=== PATIENT | male | born 1940 | race Caucasian/White ===

== ENCOUNTER 2023-04-18 17:12 | Emergency (ER) | payer MEDICARE, OTHER, SELFPAY ==
[2023-04-18 17:14] VITALS: BMI 25.9
[2023-04-18] MEDS: LET TOPICAL ANESTHETIC GEL 3 ML TOPICAL (17:21)
[2023-04-18 17:22] VITALS: BP 148/71
[2023-04-18] MEDS: ADACEL 0.5 ML IM (17:34)
--- NOTE | 2023-04-18 17:56 | ED.GENMED ---
History of Present Illness
General
Chief Complaint: Fall
Source: patient and ambulance crew
Exam Limitations: none
Time Seen by Provider: 04/18/23 17:20
Nursing documentation reviewed up to this point in time: agreed with
Travel History
Have you had any contact with someone who has COVID-19?: No
Do you have any symptoms of coronavirus? Fever > 100 degrees, chills, cough, shortness of breath, sore throat, loss of taste or smell, muscle aches, or headache?: No
History of Present Illness
History of Present Illness:
82-year-old male with history as documented presents via EMS from home for evaluation after slip and fall with head trauma. Patient reports that they had just polished his floors and he was wearing his socks inside and slipped on the floor, fell
forward and hit his face on the ground. He was wearing his glasses and sustained a laceration to the bridge of his nose as well as underneath the left eye. He says he did not lose consciousness. He says he did not sustain any other injuries. He
was brought to the emergency room for assessment. He denies any headache. Denies any neck pain. Denies any chest or abdominal pain. He states he has chronic low back pain which is unchanged. Denies any pain in his extremities. No numbness or
weakness in his extremities. He is unsure of last tetanus. He does take Plavix.
Past History
Past History
ED Past Medical History: CAD, GERD, NIDDM and Other (Cellulitis)
ED Past Surgical History: Appendectomy and Cardiac
Social History
Tobacco: Non-smoker
Review of Systems
Review of Systems
All Other Systems: ROS reviewed and negative except as documented in HPI and ROS
Respiratory: Denies trouble breathing
Cardiac: Denies chest pain
ABD/GI: Denies abdominal pain, nausea or vomiting
: Denies flank pain
Musculoskeletal: Denies joint pain, neck pain or back pain
Skin: Reports other (Laceration)
Neurological: Denies dizzy, headache, weakness or numbness
Phy Exam
Physical Exam
Physical Exam:
General: Awake, alert, oriented x3 with a GCS of 15; no acute distress
Head: Normocephalic, patient has jagged laceration along the right bridge of the nose approximately 4 cm in length; he has an approximately 5 cm laceration over the left cheek/maxillary region
Eyes: Conjunctiva normal, EOMI, pupils equal round reactive to light bilaterally
Throat: Airway intact, handling secretions
Neck: Trachea midline, no tenderness of the cervical spine
Back: No tenderness in the thoracic or lumbar spine and no signs of trauma to the back or flank
Lungs: Clear to auscultation bilaterally, no wheezing, rales, rhonchi
Heart: Regular rate and rhythm, no murmurs, gallops, or rubs; no chest wall tenderness /rib tenderness
Abd: Soft, non distended, nontender
Neuro: Cranial nerves grossly intact, speech fluid, no gross motor or sensory deficits
Skin: Facial lacerations as above
Extremities: Atraumatic, warm well-perfused with equal pulses in all extremities; allows for full passive range of motion in upper and lower extremities without discomfort
Scores
Heart Failure Risk
Heart Failure Risk Score: Not Applicable
Heart Score for Chest Pain Patients
STEMI patient?: Not applicable
Withdrawal Assessment of Alcohol
Withdrawal Assessment Completed?: Not applicable
Course
Orders/Labs/Results
Orders:
Orders
04/18/23 17:17
Lidocaine/Epinephrine/Tetracai [Let Topical Anesthetic Gel] 3 ml .ROUTE .[facility]
04/18/23 17:20
CT Cervical Spine W/o Iv Contr Urgent
Comment:
Reason For Exam: fall with frontal headstrike
CT Head W/o Iv Contrast Urgent
Comment:
Reason For Exam: fall with left frontal trauma
Lidocaine/Epinephrine/Tetracai [Let Topical Anesthetic Gel] 3 ml TOPICAL NOW STA
Lidocaine/Epinephrine/Tetracai [Let Topical Anesthetic Gel] 3 ml TOPICAL NOW STA
Tetanus/Diphth/Acelpertussis [Adacel] 0.5 ml IM .ONCE ONE
Vital Signs
Initial and Last Documented VS:
Initial Vital Signs
Temp Pulse Resp BP Pulse Ox
36.4 C 72 16 148/71 97
04/18/23 17:22 04/18/23 17:22 04/18/23 17:22 04/18/23 17:22 04/18/23 17:22
Last Documented Vital Signs
Temp Pulse Resp BP Pulse Ox
36.4 C 78 18 128/57 96
04/18/23 17:22 04/18/23 19:24 04/18/23 19:24 04/18/23 18:00 04/18/23 19:24
Procedures
Laceration Closure
Left Cheek:
Status of Wound: clean
Size of Wound in cm: 5
Description of Wound Edges: sharp
Preparation: cleaned with soap & water
Anesthesia: 1% Lidocaine and Topical-LET
Revision/Debridement: routine- no revision
Type of Closure: layered closure
Skin Closure Material: 6-0 nylon and 5-0 chromic gut
Number of sutures: 9
Additional information:
2 deep Chromic Gut sutures 5-0, 7 superficial 6-0 nylon sutures
Right Nose:
Status of Wound: clean
Size of Wound in cm: 4
Description of Wound Edges: ragged and macerated
Preparation: cleaned with soap & water
Anesthesia: 1% Lidocaine and Topical-LET
Revision/Debridement: routine- no revision
Type of Closure: layered closure
Skin Closure Material: 6-0 nylon and 5-0 chromic gut
Number of sutures: 12
Additional information:
3 deep 5-0 Chromic Gut sutures, 9 superficial 6-0 nylon sutures
MDM/Problems Addressed
Differential Diagnosis Includes:
Must rule out traumatic head injury/intracranial hemorrhage and cervical spine injury
MDM/Problems Addressed:
82-year-old male presents after mechanical slip and fall with facial trauma; he is on Plavix. He has lacerations on his face no other complaints today. Vital signs normal. Exam as above. Plan to check CT head and cervical spine given age and
Plavix use. Will update tetanus. Irrigate and repair lacerations. Reassess after the above.
CT head and cervical spine negative for any acute pathology. Lacerations irrigated and repaired as documented in procedure note. Patient feeling well, reassuring vitals, awake alert with GCS 15. Stable for discharge at this point in time we will
follow-up for suture removal in 5 to 7 days. Patient and are comfortable with this plan. Spoke about return precautions all questions answered.
*Radiology
Radiology exam reviewed: radiology read reviewed
*Pulse Oximetry
Patient hypoxic: no
*Critical Care Note
Total Time (30-74mins, 75-104mins- exclusive of procedures): Not Applicable
Data Reviewed
Source: patient and ambulance crew
ED Attending Note
-
Portions of this chart may have been created with voice recognition software.� Occasional wrong word or��sound alike� substitutions may have occurred due to the inherent limitations of voice recognition software.
Discharge Plan
Departure
Patient Disposition: Home (Routine Discharge)
Date of Disposition: 04/18/23
Time of Disposition: 19:49
Patient with high blood pressure during this ER visit?: Yes
Discharge Problem:
Face lacerations
Instructions: Laceration Repair With Stitches (DC)
Prescriptions:
No Action
bisacodyl [Dulcolax (bisacodyl)] 5 mg tablet,delayed release (DR/EC)
10 mg PO BID Qty: 8 0RF
Activity Restrictions/Additional Instructions:
You were seen in the emergency room after a fall and you sustained multiple lacerations to your face. These were repaired with stitches. You will have to have your stitches removed in 5 to 7 days. You can either return here to the emergency room
or you can follow-up with your primary care physician or you can go to urgent care to have your stitches removed. If you notice any signs of infection please return immediately to the emergency room to be reassessed.
Thank you for visiting the Emergency Department at [facility].
1. Please schedule a follow up appointment as directed. Call first thing tomorrow morning to make an appointment.
2. If indicated, please take your medications as instructed and indicated on discharge paperwork.
3. If any of your symptoms do not improve, or persist, or become more severe within 6-12 hours, please return to the emergency department for further care.
4. Please return to the emergency department if you develop a headache, neck pain/stiffness, fever greater than 100.4F, chest pain, shortness of breath, persistent nausea, vomiting, slurred speech, difficulty walking, numbness/tingling, weakness,
signs of infection or any other symptoms that are worrisome to you.
Please call [phone] if you have any questions.
Interventions
Interventions:
*Risk Screen - Suicide Last Done: 04/18/23 17:21
*General Assessment Last Done: 04/18/23 17:17
*Neglect/Abuse Screening Last Done: 04/18/23 17:21
ED- Fall Risk Assessment Last Done: 04/18/23 17:14
*ED COVID-19 Vaccine History Last Done: 04/18/23 17:21
ED-Musculoskeletal Assessment Last Done: 04/18/23 17:22
ED- Neurological Assessment Last Done: 04/18/23 17:22
ED-Skin Assessment Last Done: 04/18/23 17:22
[2023-04-18 18:00] VITALS: BP 128/57
[2023-04-18] MEDS: TYLENOL 1000 MG PO (20:27)
== END 2023-04-18 20:54 | disposition home or self-care (01) ==
LOC: EMR 17:12
PROVIDERS: EMERGENCY PHYSICIAN Emergency Medicine; FAMILY PHYSICIAN Family Medicine
DX: S01.21XA Laceration without foreign body of nose, initial encounter (principal); S01.81XA Laceration without foreign body of other part of head, initial encounter; W01.0XXA Fall on same level from slipping, tripping and stumbling without subsequent striking against object, initial encounter; I10 Essential (primary) hypertension; Z23 Encounter for immunization; Z79.01 Long term (current) use of anticoagulants
CPT/HCPCS: 99284; 12054; 90471; 70450; 72125; 90715

== ENCOUNTER 2023-04-24 12:32 | Emergency (ER) | payer MEDICARE, OTHER, SELFPAY ==
[2023-04-24 12:46] VITALS: BP 129/87
--- NOTE | 2023-04-24 14:17 | ED.GENMED ---
History of Present Illness
General
Chief Complaint: Wound Check/Suture Removal
Source: patient
Exam Limitations: none
Time Seen by Provider: 04/24/23 13:43
Nursing documentation reviewed up to this point in time: agreed with
Travel History
Have you had any contact with someone who has COVID-19?: No
Do you have any symptoms of coronavirus? Fever > 100 degrees, chills, cough, shortness of breath, sore throat, loss of taste or smell, muscle aches, or headache?: No
History of Present Illness
History of Present Illness:
Patient to ED for suture removal. Had sutures placed laceration left orbit, nose 1 week ago. Brought to ED by spouse for removal. No complaints regarding laceration. Still with complaint of neck pain.
Past History
Past History
ED Past Medical History: CAD, GERD, NIDDM and Other (Cellulitis)
ED Past Surgical History: Appendectomy and Cardiac
Social History
Tobacco: Non-smoker
Review of Systems
Review of Systems
Allergies reviewed?: Yes
All Other Systems: ROS reviewed and negative except as documented in HPI and ROS
Constitutional: Reports no symptoms
EENT: Reports no symptoms
Musculoskeletal: Reports neck pain (generalized)
Skin: Reports other (sutures intact to laceration left orbit, nose.)
Neurological: Reports no symptoms
Psychiatric: Reports no symptoms
Phy Exam
General Physical Exam
General Presentation: well appearing and no apparent distress
General age: appears stated age
General Skin: warm and dry
General Habitus: normal
General Mental: alert
Musculoskeletal Exam
Musculoskeletal Exam: neuro vasc intact and other (Bilateral posterior neck pain. radiates to left ant. shoulder. No weakness in extremities. Worse with movement.)
Skin Exam
Skin Exam: other (Sutures removed from laceration to left lower orbit, nose. Skin edges intact. No s/s infections.)
Psychiatric Exam
Psychiatric Exam: normal mood/affect
Course
Vital Signs
Initial and Last Documented VS:
Initial Vital Signs
Temp Pulse Resp BP Pulse Ox
98.2 F 65 16 129/87 98
04/24/23 12:46 04/24/23 12:46 04/24/23 12:46 04/24/23 12:46 04/24/23 12:46
Last Documented Vital Signs
Temp Pulse Resp BP Pulse Ox
98.2 F 65 16 129/87 98
04/24/23 12:46 04/24/23 12:46 04/24/23 12:46 04/24/23 12:46 04/24/23 12:46
*Critical Care Note
Total Time (30-74mins, 75-104mins- exclusive of procedures): Not Applicable
Update Note
Update Note:
Still with complaint of neck pain. Ct from date of injury reviewed. No evidence of fracture.Patient requesting muscle relaxant for home use. Has been on flexeril in the past. Rx sent to his pharmacy. He will follow up with PCP.
ED Attending Note
-
Portions of this chart may have been created with voice recognition software.� Occasional wrong word or��sound alike� substitutions may have occurred due to the inherent limitations of voice recognition software.
Discharge Plan
Departure
Patient Disposition: Home (Routine Discharge)
Date of Disposition: 04/24/23
Time of Disposition: 14:14
Patient with high blood pressure during this ER visit?: No
Condition: Good
Covid-19: Not Applicable
Discharge Problem:
Encounter for removal of sutures
Instructions: Stitches Removal, Wound Care (DC)
Prescriptions:
New
cyclobenzaprine 10 mg tablet
10 mg PO TID PRN (Reason: muscle spasm) Qty: 20 0RF
No Action
bisacodyl [Dulcolax (bisacodyl)] 5 mg tablet,delayed release (DR/EC)
10 mg PO BID Qty: 8 0RF
Referrals:
Rui Iqbal MD [Family Provider] - As needed
Interventions
Interventions:
*Neglect/Abuse Screening Last Done: 04/24/23 13:49
*ED COVID-19 Vaccine History Last Done: 04/24/23 12:46
== END 2023-04-24 15:04 | disposition home or self-care (01) ==
LOC: EMR 12:32
PROVIDERS: EMERGENCY PHYSICIAN Emergency Medicine; FAMILY PHYSICIAN Family Medicine
DX: M54.2 Cervicalgia (principal); S01.21XD Laceration without foreign body of nose, subsequent encounter; X58.XXXD Exposure to other specified factors, subsequent encounter
CPT/HCPCS: 99281

== ENCOUNTER 2023-04-30 20:08 | Inpatient (IN) | payer MEDICARE, OTHER, SELFPAY ==
[2023-04-30 14:11] VITALS: BMI 23.2
[2023-04-30 14:12] VITALS: BP 133/64
[2023-04-30 14:29] LABS: % Basophils 0.2 % (0-2); % Eosinophils 0.6 % (0-6); % Immature Granulocytes 0.6 % (0-0.5); % Lymphocytes 4.2 % (20.5-51.1); % Monocytes 9.7 % (1.7-9.3); % Neutrophils 84.7 % (42.2-75.2); Absolute Eosinophils 0.1 10^3/uL (0-0.7); Absolute Immature Granulocytes 0.1 10^3/uL (0-0.05); Absolute Lymphocytes 0.5 10^3/uL (1.2-3.4); Absolute Monocytes 1.2 10^3/uL (0.1-0.6); Absolute Neutrophils 10.6 10^3/uL (1.4-6.5); Hematocrit 39.5 % (39.0-52.0); Hemoglobin 14.4 g/dL (13.0-18.0); Mean Corp Hgb Conc. 36.5 g/dL (33.0-37.0); Mean Corpuscular Hgb 30.5 pg (27.0-31.0); Mean Corpuscular Volume 83.7 fL (80.0-94.0); Mean Platelet Volume 10.3 fL (7.4-10.4); Nucleated Red Blood Cells % 0 % (-); Platelet Count 216 10^3/uL (130-400); Red Blood Cell Count 4.72 10^6/uL (4.70-6.10); Red Cell Dist. Width 12.2 % (11.5-14.5); White Blood Cell Count 12.5 10^3/uL (4.8-10.8)
[2023-04-30 14:30] LABS: Urine Albumin Trace (Neg - Trace); Urine Bilirubin 1+ (Negative); Urine Character Clear (Clear); Urine Color Amber; Urine Glucose 3+ (Negative); Urine Ketone 3+ (Negative); Urine Leukocyte Negative (Negative); Urine Nitrite Negative (Negative); Urine Occult Blood 1+ (Negative); Urine Specific Gravity 1.015 (<1.030); Urine Urobilinogen 3+ (Neg - 1+)
[2023-04-30 14:46] LABS: Blood Urea Nitrogen 16 mg/dl (9-20); Calcium 8.5 mg/dl (8.4-10.2); Carbon Dioxide 21 mmol/L (22-30); Chloride 95 mmol/L (98-107); Glucose 156 mg/dl (70-99); Sodium 127 mmol/L (135-145); eGFR > 60.00
[2023-04-30 14:53] LABS: Urine Red Blood Cell 0-2 /HPF (0-2); Urine White Cell 0-2 /HPF (0-5)
--- NOTE | 2023-04-30 14:55 | ED.GENMED ---
History of Present Illness
General
Chief Complaint: Change in Mental Status
Source: patient and ambulance crew
Exam Limitations: none
Time Seen by Provider: 04/30/23 14:34
Nursing documentation reviewed up to this point in time: agreed with
Travel History
Have you had any contact with someone who has COVID-19?: No
Do you have any symptoms of coronavirus? Fever > 100 degrees, chills, cough, shortness of breath, sore throat, loss of taste or smell, muscle aches, or headache?: No
History of Present Illness
History of Present Illness:
82-year-old male presents emergency department due to altered mental status. states the change came before she called EMS. He was more confused.
Past History
Past History
ED Past Medical History: CAD, GERD, NIDDM and Other (Cellulitis)
ED Past Surgical History: Appendectomy and Cardiac
Social History
Tobacco: Non-smoker
Review of Systems
Review of Systems
Allergies reviewed?: Yes
All Other Systems: Not applicable
Constitutional: Reports no symptoms
EENT: Reports no symptoms
Respiratory: Reports no symptoms
Cardiac: Reports no symptoms
ABD/GI: Reports abdominal pain
: Reports no symptoms
Musculoskeletal: Reports no symptoms
Skin: Reports no symptoms
Neurological: Reports other (Increased confusion)
Endocrine: Reports no symptoms
Hematologic/Lymphatic: Reports no symptoms
Psychiatric: Reports no symptoms
Phy Exam
Physical Exam
Physical Exam:
Physical Exam
General: Afebrile
Neck: supple. no meningeal signs. normal posterior pharynx
Heart: s1/s2 regular rate and rhythm, no murmur. equal radial
pulses.
HEENT: Pupils equal round reactive to light, EOMI
Lungs: no acute respiratory distress. clear bilaterally
Abdomen: normal bowel sounds. not tender. no CVAT
Neuro: alert and oriented. no focal neurological deficits cranial nerves II through XII intact
Skin: no rash
Psychiatric: well kept. interactive and cooperative
Extremities: no edema. no calf tenderness. negative homans. good distal pulses
Course
Orders/Labs/Results
Orders:
Orders
04/30/23 14:22
Basic Metabolic Panel Urgent
Complete Blood Count/With Diff Urgent
Lipase Urgent
Osmolality, Random Urine Urgent
Date Specimen was Collected: 04/30/23
Time Specimen was Collected: 14:21
Comment: ADD ON
Urinalysis Reflex To Culture Urgent
Date Specimen was Collected: 04/30/23
Time Specimen was Collected: 14:21
Urine Microscopic Reflex Cult Urgent
Urine Sodium Urgent
Date Specimen was Collected: 04/30/23
Time Specimen was Collected: 14:21
Comment: ADD ON
04/30/23 14:54
CT Abd/pel Without Iv Or Oral Urgent
Reason For Exam: Left-sided abdominal pain
CT Head W/o Iv Contrast Urgent
Comment:
Reason For Exam: altered mental status
04/30/23 17:22
[id number] Urgent
Comment: ADD ON
Potassium Urgent
Serum Osmolality Urgent
Comment: ADD ON
04/30/23 18:24
Add On- LAB Urgent
Tests Added?: urine sodium, urine osmolality, serum osmolality
04/30/23 19:10
Admit/Transfer Patient As Directed
Co-Sign Provider:
Level of Care: Inpatient admission
Assign to:: Medical/Surgical
Physician / Group: Abram
Diagnosis: Hyponatremia, Abdominal Pain
Reason for Hospitalization: IVFs, GI consult
Expected length of stay greater than two midnights?: Yes
ELOS- Estimated Length of Stay in days: 3
I certify the patient meets the requirements for IP care: Yes
04/30/23 19:11
Code Status As Directed
Resuscitation Status: Full Code
04/30/23 19:31
NSS 1000mL Bolus over 1 hr 0.9% Sodium Chloride 1000 ml [Nss] 1,000 ml IV BOLUS
Zosyn 4.5 grams IVPB NOW Piperacillin/Tazo 4.5 Gram [Zosyn] 4.5 gram in 100 ml IV NOW
Abnormal Lab Results
04/30/23 04/30/23
14:22 17:22
WBC 12.5 H 10^3/uL
(4.8-10.8)
Abs Immat Gran (auto) 0.1 H 10^3/uL
(0-0.05)
Absolute Neuts (auto) 10.6 H 10^3/uL
(1.4-6.5)
Absolute Lymphs (auto) 0.5 L 10^3/uL
(1.2-3.4)
Absolute Monos (auto) 1.2 H 10^3/uL
(0.1-0.6)
Immature Gran % 0.6 H %
(0-0.5)
Neutrophils % 84.7 H %
(42.2-75.2)
Lymphocytes % 4.2 L %
(20.5-51.1)
Monocytes % 9.7 H %
(1.7-9.3)
Sodium 127 L mmol/L
(135-145)
Chloride 95 L mmol/L
(98-107)
Carbon Dioxide 21 L mmol/L
(22-30)
Creatinine 0.6 L mg/dL
(0.7-1.3)
Glucose 156 H mg/dl
(70-99)
Serum Osmolality 270 L mOsm/kg
(275-300)
Total Bilirubin 4.3 H mg/dl
(0.2-1.3)
Direct Bilirubin 3.4 H mg/dl
(0.0-0.4)
AST 705 H* U/L
(17-59)
ALT 708 H* U/L
(0-50)
Alkaline Phosphatase 186 H U/L
(38-126)
Urine Ketones 3+ A
(Negative)
Ur Occult Blood Reflex 1+ A
(Negative)
Urine Bilirubin 1+ A
(Negative)
Urine Urobilinogen 3+ A
(Neg - 1+)
Urine Sodium 117 H mmol/L
(30-90)
Urine Glucose 3+ A
(Negative)
04/30/23 14:22
04/30/23 17:22
Vital Signs
Initial and Last Documented VS:
Initial Vital Signs
Temp Pulse Resp BP Pulse Ox
98.7 F 85 20 133/64 98
04/30/23 14:12 04/30/23 14:12 04/30/23 14:12 04/30/23 14:12 04/30/23 14:12
Last Documented Vital Signs
Temp Pulse Resp BP Pulse Ox
98.7 F 86 21 128/76 99
04/30/23 14:12 04/30/23 17:00 04/30/23 17:00 04/30/23 17:00 04/30/23 17:00
MDM/Problems Addressed
Differential Diagnosis Includes:
Cholecystitis, ascending cholangitis, choledocholithiasis
MDM/Problems Addressed:
82-year-old male with abdominal pain, more concentrated in left lower quadrant, hyponatremia and confusion, likely due to dementia. CT abdomen pelvis shows inflammation about gallbladder. On exam patient does not have any right upper quadrant
tenderness.
Chronic conditions affecting care: DM, HTN and CAD
Acute Exacerbation and/or Progression of Chronic Illness: DM, HTN and CAD
*Radiology
Radiology exam reviewed: radiology read reviewed (CT abdomen pelvis shows gallbladder inflammation, no other acute finding)
*Pulse Oximetry
Patient hypoxic: no
*EKG
Interpreted by ED Provider?: NA
*Video Poker Floorman Interpretation
Rate: normal
Interpretation: normal
Heart Rate: 86
Rhythm: sinus
*Critical Care Note
Total Time (30-74mins, 75-104mins- exclusive of procedures): Not Applicable
Data Reviewed
Review of Other/Old Records Reveals: Labs
Source: records (Prior sodium 139 on 05/16/2022)
Patient Management
Social determinants of health affecting care: Living situation and Strong social support
Discussion with other providers: Hospitalist
Escalation/DeEscalation of care consider admission/obs:
admit indicated
ED Attending Note
-
Portions of this chart may have been created with voice recognition software.� Occasional wrong word or��sound alike� substitutions may have occurred due to the inherent limitations of voice recognition software.
Discharge Plan
Departure
Patient Disposition: Admit
Date of Disposition: 04/30/23
Time of Disposition: 18:23
Admit to: Telemetry
Presentation/result/management discussed w/ accepting MD/DO: Hospitalist
Patient with high blood pressure during this ER visit?: Yes
Condition: Good
Discharge Problem:
Altered mental status, Acute hyponatremia, Hyperbilirubinemia, Abdominal pain, Transaminitis
Prescriptions:
No Action
cyclobenzaprine 10 mg tablet
10 mg PO TID PRN (Reason: muscle spasm) Qty: 20 0RF
clopidogrel 75 mg tablet
75 mg PO QPM
amlodipine 5 mg tablet
5 mg PO QPM
acetaminophen 500 mg Tablet
1,000 mg PO Q6H PRN (Reason: mild pain/fever)
tamsulosin 0.4 mg capsule
0.4 mg PO QPM
lansoprazole 30 mg capsule,delayed release(DR/EC)
30 mg PO QPM
nitroglycerin 0.4 mg tablet, sublingual
0.4 mg sublingual [id number] PRN (Reason: chest pain)
azelastine 137 mcg (0.1 %) aerosol,spray
1 spray INTRANASAL BID PRN (Reason: congestion/allergies)
celecoxib 400 mg capsule
400 mg PO QPM
Januvia 100 mg tablet
100 mg PO QPM
Referrals:
NONE,* [Family Provider] -
Interventions
Interventions:
*Risk Screen - Suicide Last Done: 04/30/23 14:12
*General Assessment Last Done: 04/30/23 17:30
*Neglect/Abuse Screening Last Done: 04/30/23 14:12
ED- Neurological Assessment Last Done: 04/30/23 17:30
[2023-04-30 15:29] LABS: Lipase 59 U/L (23-300)
[2023-04-30 16:00] VITALS: BP 129/75
[2023-04-30 17:00] VITALS: BP 128/76
[2023-04-30 17:42] LABS: Potassium 3.8 mmol/L (3.5-5.1)
[2023-04-30 18:43] LABS: Osmolality Urine 664 mOsm/kg (300-900)
[2023-04-30 18:50] LABS: Urine Sodium 117 mmol/L (30-90)
--- NOTE | 2023-04-30 18:57 | HPS.HSE ---
Addendum entered and electronically signed by Marquis Valverde MD 04/30/23 19:56:
I saw and examined the patient.
The ELECT[employer] LIBRARIAN or PA's note was reviewed and I agree with the note.
Comment: 82-year-old male with past medical history of CAD, dementia, GERD, dal-ejvbfhe-dlewbafad diabetes mellitus came to the hospital for change in mental status. Hyponatremic in the ED. Check urine and serum studies. CT scan with some
gallbladder and duodenal thickening. LFT'S checked and elevated. start abx. consult GI and surgery. NPO. give gentle hydration. MRI/MRCP. not much tender on exam
General:�Comfortable and Conversant
HEENT:�NormoCephalic, Anicteric
Respiratory:�Clear and Non Labored Respirations
Cardiac:�S1/S2 and Regular Rhythm
GI:�Soft, Non Tender and Non Distended
Rectal:�Deferred by Provider
Musculoskeletal:�No Clubbing, No Cyanosis and No Edema
Neuro:�Awake, Alert and Nonfocal/grossly intact
Psych:�Calm
I spent a total of 78 minutes with the patient or on the floor. More than 50% of this time involved counseling and coordination of care.
Original Note:
Family Physician
-
Family Physician: * NONE
Chief Complaint
-
Change in mental status and Abdominal Pain
History of Present Illness
Patient is an 82M with PMH of CAD w/ bypass and multiple stents (last placed in 1997), dementia, and non-insulin dependent diabetes mellitus type II who presents following a change in mental status. Patient is a poor historian, at bedside
provided most of history. reports that patient was trying to void then developed acute change in mental status for about 10 minutes. notes he was staring and not interactive. She managed to get him to a chair and called for an ambulance.
She says he did not fall or pass out and returned to his baseline following this episode. Patient also reports abdominal pain in LLQ for a few days. His says that it was originally intermittent but became constant yesterday. reports some
recent constipation. There are no reports of vomiting or diarrhea. denies any changes in appetite. No reports of fevers, sweats or chills.
Medical History
Past Medical History
Past Medical History: Reports Other
Additional Past Medical History:
Coronary Artery Disease s/p CABG
Essential Hypertension
Diabetes Mellitus, Type II
Dementia
BPH
GERD
Past Surgical History: Reports Other
Additional Past Surgical History:
CABG
Hernia Repair
Appendectomy
Social History
Tobacco: Non-smoker
Family History
Family History: Not pertinent
Allergies / Home Medications
Allergies reflects when Allergies were last updated in [employer]
Home Medications with original date entered in [employer]
Allergy/Medication List:
Allergies
Allergy/AdvReac Type Severity Reaction Status Date / Time
fentanyl Allergy Unknown Verified 04/24/23 12:48
iodine Allergy Unknown Verified 04/24/23 12:48
midazolam [From Versed] Allergy Unknown Verified 04/24/23 12:48
Home Medications
cyclobenzaprine 10 mg tablet 10 mg PO TID PRN muscle spasm #20 tabs 04/24/23
acetaminophen 500 mg tablet 1,000 mg PO Q6H PRN mild pain/fever 04/30/23
amlodipine 5 mg tablet 5 mg PO QPM 04/30/23
azelastine 137 mcg (0.1 %) nasal spray aerosol 1 spray intranasal BID PRN congestion/allergies 04/30/23
celecoxib 400 mg capsule 400 mg PO QPM 04/30/23
clopidogrel 75 mg tablet 75 mg PO QPM 04/30/23
lansoprazole 30 mg capsule,delayed release 30 mg PO QPM 04/30/23
nitroglycerin 0.4 mg sublingual tablet 0.4 mg sublingual [id number] PRN chest pain 04/30/23
sitagliptin phosphate 100 mg tablet (Januvia) 100 mg PO QPM 04/30/23
tamsulosin 0.4 mg capsule 0.4 mg PO QPM 04/30/23
Review of Systems
-
Unable to obtain full review of systems at this time due to: Dementia
Physical Exam
Vital Signs
Vital Signs
Temp Pulse Resp BP Pulse Ox
98.7 F 86 21 128/76 99
04/30/23 14:12 04/30/23 17:00 04/30/23 17:00 04/30/23 17:00 04/30/23 17:00
Physical Exam
General: Comfortable and Conversant
HEENT: NormoCephalic, Anicteric and Other (mucous membranes slightly dry)
Respiratory: Clear and Non Labored Respirations
Cardiac: S1/S2 and Regular Rhythm
GI: Soft, Non Tender and Non Distended
Rectal: Deferred by Provider
Musculoskeletal: No Clubbing, No Cyanosis and No Edema
Skin: Warm and Dry
Neuro: Awake, Alert and Nonfocal/grossly intact
Psych: Calm
Laboratory Results
-
04/30/23 14:22
04/30/23 17:22
Laboratory Results
Total Bilirubin Cancelled 04/30/23 14:22
AST Cancelled 04/30/23 14:22
ALT Cancelled 04/30/23 14:22
Alkaline Phosphatase Cancelled 04/30/23 14:22
Lipase 59 U/L (23-300) 04/30/23 14:22
Data Reviewed
-
CT Scan: Report Reviewed by me
Lab Data: Labs Reviewed by me
Impression/Plan
-
Abdominal Pain, unclear etiology, possibly gallbladder related
-Consult GI
-Check LFTs
-Allow clear liquids
-Consider surgical consult
Hyponatremia, suspect hypovolemic
-Continue IVFs
-Await urine electrolytes
-Repeat sodium in AM
Coronary Artery Disease s/p CABG and Stents
- reports last stent in 1998
-Hold Plavix should he require surgery/procedure
Essential Hypertension
-Continue amlodipine
Diabetes Mellitus, Type II
-Hold Januvia in acute setting
-Monitor sugars and continue coverage insulin
Dementia, unknown type
-Monitor for mood/behavior changes during hospitalization
BPH
-Continue tamsulosin
-Monitor bladder scans
GERD
-Continue Protonix
DVT proph: Lovenox
Code Status: Full Code
[2023-04-30 19:00] LABS: Osmolality Serum 270 mOsm/kg (275-300)
--- NOTE | 2023-04-30 19:00 | EDRN ---
Report received, admitting physician in at bedside,also liver function came back and elevated, Dr. Pina aware
[2023-04-30 19:15] LABS: ALT (SGPT) 708 U/L (0-50); AST (SGOT) 705 U/L (17-59); Albumin 3.8 g/dl (3.5-5.0); Alkaline Phosphatase 186 U/L (38-126); Direct Bilirubin 3.4 mg/dl (0.0-0.4); Total Bilirubin 4.3 mg/dl (0.2-1.3); Total Protein 6.3 g/dl (6.3-8.2)
[2023-04-30] MEDS: ZOSYN 100 IV (19:41)
[2023-04-30 19:42] VITALS: BP 116/46
[2023-04-30] MEDS: NSS 1000 IV ×2 (19:42→21:55)
[2023-04-30 20:44] VITALS: BP 134/69; BMI 22.6
[2023-04-30 22:00] LABS: Glucose - Point of Care 141 mg/dl (70-99)
[2023-04-30 23:48] VITALS: BP 131/67
[2023-05-01] MEDS: ZOSYN 50 IV ×4 (03:12→21:40)
[2023-05-01 06:00] VITALS: BMI 22.5
[2023-05-01 06:58] LABS: Hematocrit 39.5 % (39.0-52.0); Hemoglobin 14.2 g/dL (13.0-18.0); Mean Corp Hgb Conc. 35.9 g/dL (33.0-37.0); Mean Corpuscular Hgb 30.6 pg (27.0-31.0); Mean Corpuscular Volume 85.1 fL (80.0-94.0); Mean Platelet Volume 10.6 fL (7.4-10.4); Platelet Count 196 10^3/uL (130-400); Red Blood Cell Count 4.64 10^6/uL (4.70-6.10); Red Cell Dist. Width 12.3 % (11.5-14.5); White Blood Cell Count 15.5 10^3/uL (4.8-10.8)
[2023-05-01 07:00] VITALS: BP 139/69
[2023-05-01 07:45] LABS: Alkaline Phosphatase 193 U/L (38-126); Blood Urea Nitrogen 10 mg/dl (9-20); Calcium 8.4 mg/dl (8.4-10.2); Carbon Dioxide 23 mmol/L (22-30); Chloride 100 mmol/L (98-107); Estimated Creatinine Clearance 87 ml/min; Glucose 140 mg/dl (70-99); Potassium 3.6 mmol/L (3.5-5.1); Sodium 130 mmol/L (135-145); eGFR > 60.00
[2023-05-01 07:46] LABS: ALT (SGPT) 535 U/L (0-50); AST (SGOT) 339 U/L (17-59); Albumin 3.4 g/dl (3.5-5.0); Magnesium 1.9 mg/dl (1.6-2.3); Total Bilirubin 4.3 mg/dl (0.2-1.3); Total Protein 5.8 g/dl (6.3-8.2)
[2023-05-01 07:49] LABS: TSH Reflex To Free T4 1.64 uIU/ml (0.47-4.68)
[2023-05-01 08:23] LABS: Glucose - Point of Care 145 mg/dl (70-99)
[2023-05-01] MEDS: NSS 1000 IV ×2 (08:23→21:41)
[2023-05-01] MEDS: PROTONIX IV 40 MG IV (08:25)
[2023-05-01] MEDS: NOVOLOG FLEXPEN-LOW RESISTANCE SC ×2 (08:25→12:43)
[2023-05-01] MEDS: NSS (PRESERVATIVE FREE) 10 ML IV (08:26)
--- NOTE | 2023-05-01 09:04 | CON.GS ---
Addendum entered and electronically signed by Renzo Robles MD 05/01/23 09:26:
Able to reach his , clinical update provided, all ?s answered.
Original Note:
Consultation
-
Requesting Provider: Da
Performing Provider: Margaret
Reason for Consultation: concern for ACC/choledocho
Medical History
-
Chief Complaint: AMS
History of Present Illness:
82M presents to ED with acute AMS. Pt has dementia and is unable to provide much history. was contacted by phone but was unavailable. History obtained from chart. Per chart he was urinating and began staring blankly and not responding
appropriately for about 10 mins. He slowly returned to his baseline MS after this. reports recent hx of constipation and LLQ pain. During my encounter the pt did mention 'stinging' to the LLQ that he tells me has resolved. At no point did he
complain of upper abd pain. He denies f/c/n/v.
Past Medical History
Past Medical History: Other (Coronary Artery Disease s/p CABG Essential Hypertension Diabetes Mellitus, Type II Dementia BPH GERD)
Past Surgical History: Other (CABG Hernia Repair Appendectomy)
Social History
Tobacco: Non-Smoker
Personal:
Living: With Family
Family History
Family History: Reviewed & Noncontributory
Allergies / Home Medications
Allergy/AdvReac Type Severity Reaction Status Date / Time
fentanyl Allergy Unknown Verified 04/24/23 12:48
iodine Allergy Unknown Verified 04/24/23 12:48
midazolam [From Versed] Allergy Unknown Verified 04/24/23 12:48
Medication Instructions Recorded Confirmed Type
cyclobenzaprine 10 mg tablet 10 mg PO TID PRN muscle spasm #20 04/24/23 04/30/23 Rx
tabs
acetaminophen 500 mg tablet 1,000 mg PO Q6H PRN mild pain/fever 04/30/23 04/30/23 History
amlodipine 5 mg tablet 5 mg PO QPM 04/30/23 04/30/23 History
azelastine 137 mcg (0.1 %) nasal 1 spray intranasal BID PRN 04/30/23 04/30/23 History
spray aerosol congestion/allergies
celecoxib 400 mg capsule 400 mg PO QPM 04/30/23 04/30/23 History
clopidogrel 75 mg tablet 75 mg PO QPM 04/30/23 04/30/23 History
lansoprazole 30 mg capsule,delayed 30 mg PO QPM 04/30/23 04/30/23 History
release
nitroglycerin 0.4 mg sublingual 0.4 mg sublingual [id number] PRN 04/30/23 04/30/23 History
tablet chest pain
sitagliptin phosphate 100 mg 100 mg PO QPM 04/30/23 04/30/23 History
tablet (Januvia)
tamsulosin 0.4 mg capsule 0.4 mg PO QPM 04/30/23 04/30/23 History
Review of Systems
-
A 10 point review of systems was completed, and was negative except as per HPI.
Physical Exam
Vital Signs
Temp Pulse Resp BP Pulse Ox
97.7 F 88 18 139/69 95
05/01/23 07:00 05/01/23 07:00 05/01/23 07:00 05/01/23 07:00 05/01/23 07:00
04/30/23 05/01/23 05/02/23
06:59 06:59 06:59
Actual Weight 67.16 kg
Body Mass Index (BMI) 22.5
Lab Results
05/01/23 06:25
05/01/23 06:25
WBC 15.5 10^3/uL (4.8-10.8) H 05/01/23 06:25
Hgb 14.2 g/dL (13.0-18.0) 05/01/23 06:25
Hct 39.5 % (39.0-52.0) 05/01/23 06:25
Plt Count 196 10^3/uL (130-400) 05/01/23 06:25
Abs Immat Gran (auto) 0.1 10^3/uL (0-0.05) H 04/30/23 14:22
Neutrophils % 84.7 % (42.2-75.2) H 04/30/23 14:22
Physical Exam
General: No Apparent Distress and Comfortable
HEENT: Normocephalic and Anicteric
GI: Soft, Non Tender and Non Distended
Skin: Warm and Dry
Neuro: Awake and Alert
Psych: Confused
Data Reviewed
-
CT Scan: Image Personally Visualized and interpreted, Report Reviewed by me, Discussed with Physician and Discussed with Patient
Labs: Labs Reviewed by me and Discussed with Patient
Old Records: Reviewed
Assessment / Plan
-
82M with AMS, found to be hyponatremic in ED - LFTs elevated and gallstones with ? of GBWT on non-con CT
AFVSS, no pain this am, non tender totally benign exam
Leukocytosis noted
LFTs elevated, some have trended down today but Bili has not
CT A/P with distended gb with stones - looking at CT from about 1 year ago, the gb appears very similar; agree there may be some stranding in the area of the gb but study limited by lack of contrast
Takes plavix
It is possible he passed a gallstone, this would explain his elevated labs and lack of pain. However in light of his plavix I would not recommend elective CCY at this time due to elevated bleeding risk. Agree MRCP is reasonable in light of
persistently elevated bili though with totally benign exam I doubt an active intra-abdominal process. If MR is negative for ductal stones, would advance diet as saman.
VM left for , unable to reach
[2023-05-01 09:58] LABS: Glycohemoglobin (HgbA1c) 6.7 % (4.0-5.6)
[2023-05-01 10:26] VITALS: BP 131/77; PULSE 82; PULSE 85; O2SAT 95; O2SAT 97
--- NOTE | 2023-05-01 11:25 | CON.GI ---
Addendum entered and electronically signed by Sofi Durbin MD 05/01/23 14:49:
I saw and examined the patient.
The [employer] F[employer] WORKER's note was reviewed and I agree with the note.
Comment: This is a 82-year-old male who presented to the emergency room with symptoms off altered mental status and lower abdominal pain history was obtained from his who is at the bedside and also son and daughter at bedside. He apparently
had been having lower abdominal pain for about 2 days prior to admission but yesterday he almost fell because of the acute pain and was brought into the emergency room. In the ER he was noted to have abnormal LFTs and CT showed gallbladder and
duodenal wall thickening he then subsequently had an MRI with MRCP which showed no evidence of choledocholithiasis, mild prominence of the extrahepatic biliary ducts and main PD, gallstones noted with gallbladder wall thickening and pericholecystic
fluid suspicious for acute cholecystitis. He was also seen by general surgery Dr. Robles.
Assessment and plan lower abdominal pain more left lower quadrant pain prior to admission but had abnormal LFTs and imaging studies consistent with probable calculus cholecystitis his LFTs have markedly improved today he most likely passed a
gallstone, no signs of pancreatitis, no CBD stone noted on MRCP. Continue antibiotics for now he was started on a diet today since his symptoms improved by surgery. Will need eventual cholecystectomy timing per surgery waiting for Plavix washout
and also was on Celebrex prior to admission.
2. Chronic GERD doing well on lansoprazole
3. Chronic constipation start Miralax daily
Original Note:
Consultation
-
Date/Time Consultation Requested: 04/30/23 @ 20:29
Date/Time Consultation Performed: 05/01/23 @ 11:30
Requesting Provider: Jenna Beach PA-C
Performing Provider: TIN Ignacio; Dr. Sofi Durbin
Reason for Consultation: elevated LFT's, abdominal pain
Medical History
Chief Complaint / HPI
Chief Complaint: change in mental status, abdominal pain
History of Present Illness:
The patient is an 82-year-old male with a past medical history significant for CAD with remote hx of CABG and cardiac stenting, dementia, DM2, hypertension, BPH, GERD, who presented to the emergency room with altered mental status and complains of
abdominal pain. We are being asked to evaluate for abnormal LFTs and abdominal pain with concern for biliary source. Upon review of ER records, the patient presented with change in mental status per his . She notes that there was a an episode
of nonresponsiveness as well. The patient admits to having a fall without loss of consciousness. He reports having slipped in his slippers. He denies head strike but it was reported he did have an injury to his head. He denies any loss of
consciousness but as noted had an episode of nonresponsiveness with his . He admits developing abdominal pain after that on the left lower abdomen. He had also had some new onset of constipation as well, although his reports that he does
have this off and on. He will take Metamucil which does help with his constipation. He denies any diarrhea, melena, hematochezia, hematemesis, nausea, or vomiting. There has been no reported weight loss, although his appetite has been somewhat
reduced since the onset of his pain. He does note that his stools did look a little bit darker than usual but no obvious signs of bleeding. His also noticed that his urine was very dark. She also reports that he had reportedly coughed up some
black sputum but this was not visualized by her. He denies any fevers or chills. He denies any history of hepatitis, IV drug use, or alcohol use. He denies any history of gallbladder problems. No recent EGD or colonoscopy reported. He does
follow with Dr. Blair from GI. Head CT on admission showed no acute intracranial abnormality. CT of the abdomen pelvis without contrast showed slightly prominent gallbladder containing stones with some thickening of the wall of the duodenum
adjacent to the gallbladder and mild thickening of the right anterior perirenal fascia. Routine labs showed WBC 12.5, hgb 14.4, Na 127, BUN 16, Cr 0.6, TB 4.3, DV 3.4, AST 705, ALT 708, alk phos 186, lipase 59. He was made n.p.o. and admitted for
further evaluation by GI with MRI/MRCP pending. Noted with slight downtrend of LFTs this morning although bilirubin remains elevated.
Past Medical History
Past Medical History: CAD (CABG, cardiac stenting), GERD, HTN, NIDDM and Other (Dementia, BPH)
Past Surgical History: Appendectomy, Cardiac (CABG, cardiac stenting) and Other (Hernia repair)
Social History
Tobacco: Non-Smoker
Alcohol: None
Drug: None
Personal:
Living: With Family
Family History
Family History: Reviewed & Not Pertinent
Allergies / Home Medications
Allergy/AdvReac Type Severity Reaction Status Date / Time
fentanyl Allergy Unknown Verified 04/24/23 12:48
iodine Allergy Unknown Verified 04/24/23 12:48
midazolam [From Versed] Allergy Unknown Verified 04/24/23 12:48
Medication Instructions Recorded
cyclobenzaprine 10 mg tablet 10 mg PO TID PRN muscle spasm #20 04/24/23
tabs
acetaminophen 500 mg tablet 1,000 mg PO Q6H PRN mild pain/fever 04/30/23
amlodipine 5 mg tablet 5 mg PO QPM Blood Pressure 04/30/23
azelastine 137 mcg (0.1 %) nasal 1 spray intranasal BID PRN 04/30/23
spray aerosol congestion/allergies
celecoxib 400 mg capsule 400 mg PO QPM Pain 04/30/23
clopidogrel 75 mg tablet 75 mg PO QPM Blood Clot 04/30/23
Prevention/Tx
lansoprazole 30 mg capsule,delayed 30 mg PO QPM Gastrointestinal Issue 04/30/23
release
nitroglycerin 0.4 mg sublingual 0.4 mg sublingual [id number] PRN 04/30/23
tablet chest pain
sitagliptin phosphate 100 mg 100 mg PO QPM Diabetes 04/30/23
tablet (Januvia)
tamsulosin 0.4 mg capsule 0.4 mg PO QPM Urinary Issue 04/30/23
Review of Systems
-
History Source: Patient and Family
Constitutional: Reports No Symptoms
EENT: Reports No Symptoms
Respiratory: Reports No Symptoms
Cardiac: Reports No Symptoms
Abdomen/GI: Reports Abdominal Pain
: Reports Dark Urine
Musculoskeletal: Reports No Symptoms
Skin: Reports No Symptoms
Neurological: Reports No Symptoms
Vital Signs
Temp Pulse Resp BP Pulse Ox
97.7 F 88 18 139/69 95
05/01/23 07:00 05/01/23 07:00 05/01/23 07:00 05/01/23 07:00 05/01/23 07:00
Physical Exam
Exam
General: Well Developed, Well Nourished, No Apparent Distress and Other (elderly appearing male in NAD, +mild jaundice)
HEENT: Normocephalic, Atraumatic and Other (slight scleral icterus)
Respiratory: Clear
Cardiac: S1/S2 and Regular Rhythm
GI: Soft, Non Tender, Non Distended and Normal Bowel Sounds
Rectal: Deferred by Provider
Musculoskeletal: No Edema
Skin: Warm and Dry
Neuro: Awake, Alert, Oriented and Other (forgetful)
Psych: Calm
Results
WBC 15.5 10^3/uL (4.8-10.8) H 05/01/23 06:25
Hgb 14.2 g/dL (13.0-18.0) 05/01/23 06:25
Hct 39.5 % (39.0-52.0) 05/01/23 06:25
MCV 85.1 fL (80.0-94.0) 05/01/23 06:25
Plt Count 196 10^3/uL (130-400) 05/01/23 06:25
Absolute Neuts (auto) 10.6 10^3/uL (1.4-6.5) H 04/30/23 14:22
Sodium 130 mmol/L (135-145) L 05/01/23 06:25
Potassium 3.6 mmol/L (3.5-5.1) 05/01/23 06:25
Chloride 100 mmol/L (98-107) 05/01/23 06:25
Carbon Dioxide 23 mmol/L (22-30) 05/01/23 06:25
BUN 10 mg/dl (9-20) 05/01/23 06:25
Creatinine 0.6 mg/dL (0.7-1.3) L 05/01/23 06:25
Calcium 8.4 mg/dl (8.4-10.2) 05/01/23 06:25
Total Bilirubin 4.3 mg/dl (0.2-1.3) H 05/01/23 06:25
AST 339 U/L (17-59) H 05/01/23 06:25
ALT 535 U/L (0-50) H* 05/01/23 06:25
Alkaline Phosphatase 193 U/L (38-126) H 05/01/23 06:25
Lipase 59 U/L (23-300) 04/30/23 14:22
Diagnostic Image Results:
04/30/23 Ct A/P without contrast: IMPRESSION: 'No findings to suggest obstructive uropathy bilaterally. Approximate 5 cm simple right renal cyst again seen. Gallbladder is slightly prominent in caliber containing stones, cannot exclude some
gallbladder wall thickening. Some thickening of the wall of the duodenum adjacent to the gallbladder cannot be excluded limited without oral contrast opacification. As there is some mild thickening of the right anterior perirenal fascia new in the
interval since prior study, this may be secondary to an inflammatory/infectious process of the gallbladder or duodenum.'
04/30/23 CT head: No acute intracranial abnormality
Prior GI Procedures:
EGD: none on file
Colonoscopy: none on file
Assessment / Plan
-
The patient is an 82-year-old male with a past medical history significant for CAD with remote hx of CABG and cardiac stenting, dementia, DM2, hypertension, BPH, GERD, who presented to the emergency room with altered mental status and complains of
abdominal pain. We are being asked to evaluate for abnormal LFTs and abdominal pain with concern for biliary source. Noted at home with acute onset of mental status change with fall and subsequent abdominal pain. On evaluation LFT's elevated with
TB 4.3. CT imaging showing GB stones and ?GBWT/duodenal wall thickening. He was admitted for MRI/MRCP. Last plavix dose was on 04/29 in the morning. His pain has since resolved. No prior hx GB disease or liver disease.
Problem list:
-abdominal pain, LLQ, resolved
-abnormal LFT's
-CT scan showing GB stones, ?GBWT
-constipation, acute/chronic
-leukocytosis
-hyponatremia
-altered mental status
Other pertinent medical hx:
-CAD s/p remote CABG, stenting on Plavix
-dementia
-DM2
-GERD
-BPH
-HTN
Recommendations:
-Etiology of abnormal LFT's/abdominal pain possibly 2/2 choledocholithiasis v acute cholecystitis v less likely cholangitis v other.
---No evidence of diverticulitis on imaging with LLQ pain. +Leukocytosis without fevers. Does not appear toxic to suggest cholangitis
-Await MRI/MRCP. If + will need ERCP after Plavix washout
-IV abx as per hospitalist
-Continue to hold Plavix for now
-General surgery following
-MiraLax daily for constipation when taking PO
-NPO pending MRI
-Trend LFT's
-Hepatitis serologies
-Monitor CBC to trend WBC and monitor for fevers
-IV fluids as per hospitalist
-Will follow
-
-
Thank you for consultation and allowing me to participate in the patient's care. Please call the electronics utility worker GI physician during the after hours with any questions or concerns.
--- NOTE | 2023-05-01 11:36 | W.PN.HOSP.TC ---
Today's Communication/Plan
-
Monitor vital signs and see plan
Monitor LFTs
cw abx for now
MRI
Monitor sodium
bcx
Assessment / Plan
Assessment / Plan
General:�Comfortable and Conversant
HEENT:�NormoCephalic, Anicteric
Respiratory:�Clear and Non Labored Respirations
Cardiac:�S1/S2 and Regular Rhythm
GI:�Soft, Non Tender and Non Distended
Rectal:�Deferred by Provider
Musculoskeletal:�No Clubbing, No Cyanosis and No Edema
Neuro:�Awake, Alert and Nonfocal/grossly intact
Psych:�Calm
Abdominal Pain, unclear etiology, possibly gallbladder related
Suspected sepsis (leukocytosis,tachypnea) 2/[address] with distended gallbladder with stones
LFTs and bili elevated, trend
GI and surgery
N.p.o. for now
MRI pending
Hyponatremia, suspect hypovolemic
-Continue IVFs
monitor
Coronary Artery Disease s/p CABG and Stents
- reports last stent in 1998
-Hold Plavix should he require surgery/procedure
Essential Hypertension
-Continue amlodipine
Diabetes Mellitus, Type II
-Hold Januvia in acute setting
-Monitor sugars and continue coverage insulin
A1c 6.7
Dementia, unknown type
-Monitor for mood/behavior changes during hospitalization
BPH
-Continue tamsulosin
-Monitor bladder scans
GERD
-Continue Protonix
DVT proph: Lovenox
Code Status: Full Code
I spent a total of 52 minutes with the patient or on the floor. More than 50% of this time involved counseling and coordination of care.
Anticipated Discharge: 24 - 48 hours
Subjective/Interval History
-
Date of Service: May 01, 2023
denies nausea
Objective Data
-
Labs:
Laboratory Results
05/01/23
06:25
WBC 15.5 H
Hgb 14.2
Hct 39.5
Plt Count 196
Sodium 130 L
Potassium 3.6
Chloride 100
Carbon Dioxide 23
BUN 10
Creatinine 0.6 L
Glucose 140 H
Calcium 8.4
Total Bilirubin 4.3 H
AST 339 H
ALT 535 H*
Alkaline Phosphatase 193 H
Vital Signs:
Vital Signs
Temp Pulse Resp BP Pulse Ox
97.7 F 88 18 139/69 95
05/01/23 07:00 05/01/23 07:00 05/01/23 07:00 05/01/23 07:00 05/01/23 07:00
I&O
04/30/23 05/01/23 05/02/23
06:59 06:59 06:59
Intake Total 240 / 240
Output Total 150 / 150
Balance 90 / 90
--- NOTE | 2023-05-01 11:57 | CM ---
Reviewed chart, attempted to meet with patient however he was having an MRI. Placed a call to patient's however had to leave a voice mail message. Will attempt to meet with patient upon his return.
Plan: Case management will continue to follow and assist with discharge planning/will try to meet with patient later to obtain information for assessment.
[2023-05-01 12:09] LABS: Glucose - Point of Care 123 mg/dl (70-99)
[2023-05-01 13:21] VITALS: BP 131/77; PULSE 85; O2SAT 95
--- NOTE | 2023-05-01 14:20 | W.PN.UPDATE ---
Update Note
Progress Note Update
MRCP reviewed. No choledocholithiasis. Radiology findings suggestive of ACC are noted, however with a totally benign abd exam I would favor chronic changes. Will PO challenge. Recommend trending LFTs. If a passed gallstone is ultimately felt to be
responsible for this episode, would recommend elective CCY at some point in the future after plavix washout. If another etiology is identified, would manage the gb expectantly.
[2023-05-01 15:00] VITALS: BP 138/71
[2023-05-01 16:40] LABS: Glucose - Point of Care 177 mg/dl (70-99)
[2023-05-01] MEDS: LOVENOX 40 MG SC (17:55)
[2023-05-01] MEDS: FLOMAX 0.400000000000000022 MG PO (17:55)
[2023-05-01] MEDS: NORVASC 5 MG PO (17:55)
[2023-05-01] MEDS: NOVOLOG FLEXPEN-LOW RESISTANCE 1 UNITS SC (17:57)
[2023-05-01 21:32] LABS: Glucose - Point of Care 142 mg/dl (70-99)
--- NOTE | 2023-05-01 22:15 | PTCARENOTE ---
This RN walked into pt's room to find that he pulled out his IV. Pt stated 'I didn't think I needed it anymore'. Pt educated on importance of IV. Medsitter placed in room. IV team called and new IV placed and wrapped. NSS going at 100mls/hr.
Continuing plan of care.
[2023-05-01 23:09] VITALS: BP 131/73
[2023-05-02] MEDS: ZOSYN 50 IV ×4 (02:21→19:56)
[2023-05-02 04:10] VITALS: BMI 22.7
[2023-05-02 06:53] LABS: % Basophils 0.2 % (0-2); % Immature Granulocytes 0.6 % (0-0.5); % Monocytes 9.8 % (1.7-9.3); % Neutrophils 85.4 % (42.2-75.2); Absolute Eosinophils 0.1 10^3/uL (0-0.7); Absolute Immature Granulocytes 0.1 10^3/uL (0-0.05); Absolute Lymphocytes 0.4 10^3/uL (1.2-3.4); Absolute Monocytes 1.4 10^3/uL (0.1-0.6); Absolute Neutrophils 12.5 10^3/uL (1.4-6.5); Hematocrit 36.5 % (39.0-52.0); Hemoglobin 13.3 g/dL (13.0-18.0); Mean Corp Hgb Conc. 36.4 g/dL (33.0-37.0); Mean Corpuscular Volume 85.1 fL (80.0-94.0); Mean Platelet Volume 10.3 fL (7.4-10.4); Nucleated Red Blood Cells % 0 % (-); Platelet Count 179 10^3/uL (130-400); Red Blood Cell Count 4.29 10^6/uL (4.70-6.10); Red Cell Dist. Width 12.8 % (11.5-14.5); White Blood Cell Count 14.7 10^3/uL (4.8-10.8)
[2023-05-02 07:00] VITALS: BP 138/69
[2023-05-02 07:22] LABS: ALT (SGPT) 307 U/L (0-50); AST (SGOT) 123 U/L (17-59); Albumin 2.8 g/dl (3.5-5.0); Alkaline Phosphatase 175 U/L (38-126); Blood Urea Nitrogen 10 mg/dl (9-20); Calcium 8.1 mg/dl (8.4-10.2); Carbon Dioxide 25 mmol/L (22-30); Chloride 104 mmol/L (98-107); Estimated Creatinine Clearance 75 ml/min; Glucose 131 mg/dl (70-99); Potassium 3.6 mmol/L (3.5-5.1); Sodium 131 mmol/L (135-145); Total Protein 5.3 g/dl (6.3-8.2); eGFR > 60.00
[2023-05-02] MEDS: NSS (PRESERVATIVE FREE) 10 ML IV (07:55)
[2023-05-02] MEDS: PROTONIX IV 40 MG IV (07:56)
[2023-05-02 08:16] LABS: Glucose - Point of Care 127 mg/dl (70-99)
--- NOTE | 2023-05-02 08:31 | W.PN.GS2 ---
Today's Communication / Plan
-
`
Assessment / Plan
-
Assessment: 82 y/o male with acute calculous cholecystitis and secondary elevation of LFTs and leukocytosis
US and MRCP with GB wall thickening, pericholecystic edema and stones, negative for choledocholithiasis
localizing tenderness to RUQ/probable palpable GB on exam
on Plavix - last dose saturday 04/29 - today would be day 3 off of it
h/o CAD s/p CABG and subsequent stents in late 1989's early - pt state he had a cardic cath recently which was 'good' no valuvular dz, no h/o heart failure
Plan: d/w patient via phone call this AM, we discussed treatment options and she would be in agreement with cholecystectomy
given US and MR appearance of GB will obtain HIDA to see if there is persistent cystic duct obstruction which may influence timing of cholecystectomy but at this point day 3 into washout will likely schedule this hospitalization, either weekend or
early next week
backed down to clear liquid diet today
continue Zosyn
continue to hold plavix
Subjective Data
-
Date of Service: May 02, 2023
pt seen and examined
oriented to self, abd pain better, no nausea, no appetite though
Objective Data
-
Intake and Output
05/01/23 05/02/23 05/03/23
06:59 06:59 06:59
Intake Total 240 / 240 1860 / 1860
Output Total 150 / 150 640 / 640
Balance 90 / 90 1220 / 1220
Intake:
Oral fluids 240 / 240 960 / 960
IV fluids (Total) 800 / 800
IV piggybacks 100 / 100
Output:
Urine, Voided 150 / 150 640 / 640
Other:
How many times incontinent 1
MODERATE amount urine
How many times incontinent 1 1
SATURATED amount urine
Vital Signs
Temp Pulse Resp BP Pulse Ox
97.3 F 72 18 138/69 96
05/02/23 07:00 05/02/23 07:00 05/02/23 07:00 05/02/23 07:00 05/02/23 07:00
Lab Results
05/02/23 06:34
05/02/23 06:34
Calcium 8.1 mg/dl (8.4-10.2) L 05/02/23 06:34
Magnesium 1.9 mg/dl (1.6-2.3) 05/01/23 06:25
Total Bilirubin 3.0 mg/dl (0.2-1.3) H 05/02/23 06:34
Direct Bilirubin Cancelled 04/30/23 18:35
AST 123 U/L (17-59) H 05/02/23 06:34
ALT 307 U/L (0-50) H 05/02/23 06:34
Alkaline Phosphatase 175 U/L (38-126) H 05/02/23 06:34
Total Protein 5.3 g/dl (6.3-8.2) L 05/02/23 06:34
Albumin 2.8 g/dl (3.5-5.0) L 05/02/23 06:34
Physical Exam
-
NAD Alert oriented to self
ABD: softl NT, TTP RUQ on deep palpation and GB likely palpable in RUQ
[2023-05-02] MEDS: NOVOLOG FLEXPEN-LOW RESISTANCE SC ×2 (09:47→13:37)
--- NOTE | 2023-05-02 11:19 | W.PN.HOSP.TC ---
Today's Communication/Plan
-
Monitor vital signs
see plan
HIDA scan today
Clears for now
Gentle hydration
Continue to hold Plavix
Assessment / Plan
Assessment / Plan
General:�Comfortable and Conversant
HEENT:�NormoCephalic, Anicteric
Respiratory:�Clear and Non Labored Respirations
Cardiac:�S1/S2 and Regular Rhythm
GI:�Soft, Non Tender and Non Distended
Rectal:�Deferred by Provider
Musculoskeletal:�No Clubbing, No Cyanosis and No Edema
Neuro:�Awake, Alert and Nonfocal/grossly intact
Psych:�Calm
Abdominal Pain, unclear etiology, possibly gallbladder related
Suspected sepsis (leukocytosis,tachypnea) 2/[address] with distended gallbladder with stones
LFTs and bili elevated, trend
GI and surgery following
MRI without CBD stone; possibel acute alistair; HIDA scan today
now on CLD; might be able to get alistair this hospitalization
Hyponatremia, suspect hypovolemic
-Continue IVFs
monitor
Coronary Artery Disease s/p CABG and Stents
- reports last stent in 1998
-Hold Plavix should he require surgery/procedure
Essential Hypertension
-Continue amlodipine
Diabetes Mellitus, Type II
-Hold Januvia in acute setting
-Monitor sugars and continue coverage insulin
A1c 6.7
Dementia, unknown type
-Monitor for mood/behavior changes during hospitalization
overnight pulled his IV out thinking he doesnt need it; currently no confusion or agitation
BPH
-Continue tamsulosin
-Monitor bladder scans
GERD
-Continue Protonix
DVT proph: Lovenox
Code Status: Full Code
Anticipated Discharge: 24 - 48 hours
Subjective/Interval History
-
Date of Service: May 02, 2023
denies nausea
Objective Data
-
Labs:
Laboratory Results
05/02/23
06:34
WBC 14.7 H
Hgb 13.3
Hct 36.5 L
Plt Count 179
Sodium 131 L
Potassium 3.6
Chloride 104
Carbon Dioxide 25
BUN 10
Creatinine 0.7
Glucose 131 H
Calcium 8.1 L
Total Bilirubin 3.0 H
AST 123 H
ALT 307 H
Alkaline Phosphatase 175 H
Vital Signs:
Vital Signs
Temp Pulse Resp BP Pulse Ox
97.3 F 72 18 138/69 96
05/02/23 07:00 05/02/23 07:00 05/02/23 07:00 05/02/23 07:00 05/02/23 07:00
I&O
05/01/23 05/02/23 05/03/23
06:59 06:59 06:59
Intake Total 240 / 240 1860 / 1860
Output Total 150 / 150 640 / 640
Balance 90 / 90 1220 / 1220
--- NOTE | 2023-05-02 12:45 | CM ---
Placed another call to patient's however there was no answer and no voicemail to leave a message. Will attempt again. Message was able to be left yesterday and no return call has been received from .
Plan: Case management will continue to follow and assist with discharge planning. Will continue to try to connect with patient's .
[2023-05-02] MEDS: NSS 1000 IV (13:26)
[2023-05-02 13:32] LABS: Glucose - Point of Care 105 mg/dl (70-99)
--- NOTE | 2023-05-02 15:22 | W.PN.SURGUPD ---
Surgical Update
Surgical Update
HIDA confirms cystic duct obstruction.
continue to hold plavix. pending clinical course with abx and supportive care during plavix washout plan will be for cholecystectomy vs perc alistair if deterioration.
continue zosyn
clears liquid diet if no exacerbation of pain
[2023-05-02 15:26] VITALS: BP 136/69
[2023-05-02 16:08] LABS: Glucose - Point of Care 202 mg/dl (70-99)
[2023-05-02] MEDS: LOVENOX 40 MG SC (18:04)
[2023-05-02] MEDS: FLOMAX 0.400000000000000022 MG PO (18:04)
[2023-05-02] MEDS: NORVASC 5 MG PO (18:04)
--- NOTE | 2023-05-02 18:28 | W.PN.GI.CBS2 ---
Today's Communication / Plan
-
Timing of cholecystectomy per surgery
Continue antibiotics and clear liquids for now
Assessment / Plan
-
The patient is an 82-year-old male with a past medical history significant for CAD with remote hx of CABG and cardiac stenting, dementia, DM2, hypertension, BPH, GERD, who presented to the emergency room with altered mental status and complains of
abdominal pain. We are being asked to evaluate for abnormal LFTs and abdominal pain with concern for biliary source. Noted at home with acute onset of mental status change with fall and subsequent abdominal pain. On evaluation LFT's elevated with
TB 4.3. CT imaging showing GB stones and ?GBWT/duodenal wall thickening. He was admitted for MRI/MRCP. Last plavix dose was on 04/29 in the morning. His pain has since resolved. No prior hx GB disease or liver disease.
Problem list:
-abdominal pain, LLQ, resolved
-abnormal LFT's
-CT scan showing GB stones, ?GBWT
-constipation, acute/chronic
-leukocytosis
-hyponatremia
-altered mental status
Other pertinent medical hx:
-CAD s/p remote CABG, stenting on Plavix
-dementia
-DM2
-GERD
-BPH
-HTN
Recommendations:
-Abdominal pain with abnormal LFTs and imaging studies consistent with probable calculus cholecystitis his LFTs have markedly improved he most likely passed a gallstone, no signs of pancreatitis, no CBD stone noted on MRCP.� Continue antibiotics.�
Will need eventual cholecystectomy timing per surgery waiting for Plavix washout and also was on Celebrex prior to admission. HIDA scan also consistent with acute cholecystitis
2. Chronic GERD continue PPI
3. Chronic constipation start Miralax daily when PO intake resumed
GI will s/o and will be available as needed
Subjective
Subjective
Date of Service: May 02, 2023
His abdominal pain is markedly improved and noted results of HIDA scan findings consistent with acute cholecystitis. Noted input from surgery plan for cholecystectomy after 5 days off Plavix. His LFTs are also trending down he is afebrile on
antibiotics
Objective
Data Reviewed
Laboratory Data:
Laboratory Results
05/02/23 06:34
05/02/23 06:34
Laboratory Results
Magnesium 1.9 mg/dl (1.6-2.3) 05/01/23 06:25
Total Bilirubin 3.0 mg/dl (0.2-1.3) H 05/02/23 06:34
AST 123 U/L (17-59) H 05/02/23 06:34
ALT 307 U/L (0-50) H 05/02/23 06:34
Alkaline Phosphatase 175 U/L (38-126) H 05/02/23 06:34
Lipase 59 U/L (23-300) 04/30/23 14:22
Vital Signs and I&O:
Vital Signs
Temp Pulse Resp BP Pulse Ox
97.9 F 80 18 136/69 94
05/02/23 15:26 05/02/23 15:26 05/02/23 15:26 05/02/23 15:26 05/02/23 15:26
I&O
05/01/23 05/02/23 05/03/23
06:59 06:59 06:59
Intake Total 240 / 240 1860 / 1860
Output Total 150 / 150 640 / 640 300 / 300
Balance 90 / 90 1220 / 1220 -300 / -300
05/02/23 HIDA
IMPRESSION:
1. No filling of the gallbladder at 60 minutes, nor following intravenous morphine administration. Findings suggestive of acute cholecystitis in the correct clinical setting.
2. No evidence of complete common bile duct obstruction.
Physical Exam
Physical Exam
Cardiology: Normal Sinus Rhythm
Pulmonary: Clear
GI: Soft, Non Distended and Tender (Mild epigastric and right upper quadrant tenderness with deep palpation)
[2023-05-02] MEDS: NOVOLOG FLEXPEN-LOW RESISTANCE 2 UNITS SC (19:39)
[2023-05-02] MEDS: NSS IV (19:50)
[2023-05-02 23:15] VITALS: BP 128/58
[2023-05-02 23:52] LABS: Glucose - Point of Care 134 mg/dl (70-99)
[2023-05-03] MEDS: ZOSYN 50 IV ×4 (03:04→21:35)
[2023-05-03] MEDS: NSS 1000 IV ×2 (04:32→18:45)
[2023-05-03 06:00] VITALS: BMI 23.7
[2023-05-03 06:14] LABS: % Basophils 0.3 % (0-2); % Eosinophils 3.9 % (0-6); % Immature Granulocytes 0.4 % (0-0.5); % Lymphocytes 3.9 % (20.5-51.1); % Monocytes 9.6 % (1.7-9.3); % Neutrophils 81.9 % (42.2-75.2); Absolute Eosinophils 0.4 10^3/uL (0-0.7); Absolute Lymphocytes 0.4 10^3/uL (1.2-3.4); Absolute Neutrophils 8.6 10^3/uL (1.4-6.5); Hematocrit 33.2 % (39.0-52.0); Hemoglobin 12.3 g/dL (13.0-18.0); Mean Corpuscular Hgb 30.7 pg (27.0-31.0); Mean Corpuscular Volume 82.8 fL (80.0-94.0); Mean Platelet Volume 10.2 fL (7.4-10.4); Nucleated Red Blood Cells % 0 % (-); Platelet Count 186 10^3/uL (130-400); Red Blood Cell Count 4.01 10^6/uL (4.70-6.10); Red Cell Dist. Width 12.6 % (11.5-14.5); White Blood Cell Count 10.4 10^3/uL (4.8-10.8)
[2023-05-03 06:31] LABS: ALT (SGPT) 211 U/L (0-50); AST (SGOT) 74 U/L (17-59); Albumin 2.5 g/dl (3.5-5.0); Alkaline Phosphatase 154 U/L (38-126); Blood Urea Nitrogen 10 mg/dl (9-20); Calcium 7.6 mg/dl (8.4-10.2); Carbon Dioxide 23 mmol/L (22-30); Chloride 105 mmol/L (98-107); Estimated Creatinine Clearance 88 ml/min; Glucose 128 mg/dl (70-99); Potassium 3.1 mmol/L (3.5-5.1); Sodium 132 mmol/L (135-145); Total Bilirubin 2.2 mg/dl (0.2-1.3); Total Protein 4.8 g/dl (6.3-8.2); eGFR > 60.00
[2023-05-03 08:31] LABS: Glucose - Point of Care 116 mg/dl (70-99)
[2023-05-03] MEDS: NOVOLOG FLEXPEN-LOW RESISTANCE SC ×2 (08:34→17:03)
[2023-05-03] MEDS: PROTONIX IV 40 MG IV (08:34)
[2023-05-03] MEDS: NSS (PRESERVATIVE FREE) 10 ML IV (08:35)
[2023-05-03 08:42] VITALS: BP 137/67
--- NOTE | 2023-05-03 09:28 | W.PN.GS2 ---
Addendum entered and electronically signed by Renzo Robles MD 05/03/23 10:15:
I saw and examined the patient.
The Finger Cobbler's note was reviewed and I agree with the note.
Comment: No complaints. Stable. Cont clears for now. Tentatively for CCY after pavix washout, possibly this weekend vs early next week.
Original Note:
Today's Communication / Plan
-
Clear liquids
Assessment / Plan
-
Assessment: 82 y/o male with h/o CAD s/p CABG and subsequent stents in late 1989's early - pt state he had a cardic cath recently which was 'good' no valuvular dz, no h/o heart failure with acute calculous cholecystitis and secondary
elevation of LFTs and leukocytosis
US and MRCP with GB wall thickening, pericholecystic edema and stones, negative for choledocholithiasis
localizing tenderness to RUQ/probable palpable GB on exam
HIDA confirms cystic duct obstruction
on Plavix - last dose saturday 04/29 - today would be day 4 off of it
AFVSS
LFT's trending down. WBC count now normalized
Plan: Plan cholecystectomy after Plavix washout tentatively Saturday
continue on clear liquid diet today
continue Zosyn
continue to hold plavix
Subjective Data
-
Date of Service: May 03, 2023
Patient seen and examined at bedside with Dr. Robles. Offering no complaints.
Objective Data
-
Intake and Output
05/02/23 05/03/23 05/04/23
06:59 06:59 06:59
Intake Total 1860 / 1860 100 / 100
Output Total 640 / 640 625 / 625
Balance 1220 / 1220 -525 / -525
Intake:
Oral fluids 960 / 960 100 / 100
IV fluids (Total) 800 / 800
IV piggybacks 100 / 100
Output:
Urine, Voided 640 / 640 625 / 625
Other:
How many times incontinent 2
SMALL amount urine
How many times incontinent 1
MODERATE amount urine
How many times incontinent 1
SATURATED amount urine
Vital Signs
Temp Pulse Resp BP Pulse Ox
98.1 F 70 16 137/67 96
05/03/23 08:42 05/03/23 08:42 05/03/23 08:42 05/03/23 08:42 05/03/23 08:42
Lab Results
05/03/23 05:43
05/03/23 05:43
Calcium 7.6 mg/dl (8.4-10.2) L 05/03/23 05:43
Magnesium 1.9 mg/dl (1.6-2.3) 05/01/23 06:25
Total Bilirubin 2.2 mg/dl (0.2-1.3) H 05/03/23 05:43
Direct Bilirubin Cancelled 04/30/23 18:35
AST 74 U/L (17-59) H 05/03/23 05:43
ALT 211 U/L (0-50) H 05/03/23 05:43
Alkaline Phosphatase 154 U/L (38-126) H 05/03/23 05:43
Total Protein 4.8 g/dl (6.3-8.2) L 05/03/23 05:43
Albumin 2.5 g/dl (3.5-5.0) L 05/03/23 05:43
Physical Exam
-
NAD Alert oriented to self
ABD: softl NT, TTP RUQ on deep palpation a
[2023-05-03] MEDS: KCL 270 MEQ IV (09:34)
--- NOTE | 2023-05-03 11:08 | W.PN.HOSP.TC ---
Today's Communication/Plan
-
Monitor vital signs and see plan
Plan for CCY after Plavix washout
Surgery following
Replete potassium
Clears
Assessment / Plan
Assessment / Plan
General:�Comfortable and Conversant
HEENT:�NormoCephalic, Anicteric
Respiratory:�Clear and Non Labored Respirations
Cardiac:�S1/S2 and Regular Rhythm
GI:�Soft, Non Tender and Non Distended
Rectal:�Deferred by Provider
Musculoskeletal:�No Clubbing, No Cyanosis and No Edema
Neuro:�Awake, Alert and Nonfocal/grossly intact
Psych:�Calm
Abdominal Pain 2/2 acute on chronic cholecystitis
Suspected sepsis (leukocytosis,tachypnea) 2/[address] with distended gallbladder with stones
LFTs and bili elevated, trend
GI and surgery following
MRI without CBD stone; possible acute alistair; HIDA confirms cystic duct obstruction
now on CLD; plan for CCY after plavix washout
Hyponatremia, suspect hypovolemic
-Continue IVFs
monitor
Coronary Artery Disease s/p CABG and Stents
- reports last stent in 1998
-Hold Plavix should he require surgery/procedure
Essential Hypertension
-Continue amlodipine
Hypokalemia
replete
Diabetes Mellitus, Type II
-Hold Januvia in acute setting
-Monitor sugars and continue coverage insulin
A1c 6.7
Dementia, unknown type
-Monitor for mood/behavior changes during hospitalization
overnight 05/01 pulled his IV out thinking he doesnt need it; currently no confusion or agitation
BPH
-Continue tamsulosin
-Monitor bladder scans
GERD
-Continue Protonix
DVT proph: Lovenox
Code Status: Full Code
Anticipated Discharge: > 48 hours
Subjective/Interval History
-
Date of Service: May 03, 2023
denies pain
Objective Data
-
Labs:
Laboratory Results
05/03/23
05:43
WBC 10.4
Hgb 12.3 L
Hct 33.2 L
Plt Count 186
Sodium 132 L
Potassium 3.1 L
Chloride 105
Carbon Dioxide 23
BUN 10
Creatinine 0.6 L
Glucose 128 H
Calcium 7.6 L
Total Bilirubin 2.2 H
AST 74 H
ALT 211 H
Alkaline Phosphatase 154 H
Vital Signs:
Vital Signs
Temp Pulse Resp BP Pulse Ox
98.1 F 70 16 137/67 96
05/03/23 08:42 05/03/23 08:42 05/03/23 08:42 05/03/23 08:42 05/03/23 08:42
I&O
05/02/23 05/03/23 05/04/23
06:59 06:59 06:59
Intake Total 1860 / 1860 100 / 100
Output Total 640 / 640 625 / 625
Balance 1220 / 1220 -525 / -525
--- NOTE | 2023-05-03 11:32 | VNURNOTE ---
Home Health Liaison met with patient's family (son Milad, and daughter) at their request . Met to discuss [facility] nurse/therapy, visits, schedule and homebound status. Family is agreeable and understands that visits at home will be 2-3 x per
week to assess and teach medical management.
[facility] brochure provided with contact information. Family is aware that [facility] will contact them for start of care in 1-2 days after discharge from .
[facility] referral is in [facility] Port in 'saved mode' and will need to be sent when patient is closer to discharge.
[2023-05-03 12:31] VITALS: BP 148/74; PULSE 79; O2SAT 97
[2023-05-03 12:32] VITALS: BP 148/74; PULSE 78; O2SAT 97
[2023-05-03 13:04] LABS: Glucose - Point of Care 156 mg/dl (70-99)
[2023-05-03] MEDS: NOVOLOG FLEXPEN-LOW RESISTANCE 1 UNITS SC (13:22)
[2023-05-03 15:23] VITALS: BP 132/69
[2023-05-03 16:54] LABS: Glucose - Point of Care 139 mg/dl (70-99)
[2023-05-03] MEDS: LOVENOX 40 MG SC (17:46)
[2023-05-03] MEDS: NORVASC 5 MG PO (17:46)
[2023-05-03] MEDS: FLOMAX 0.400000000000000022 MG PO (17:46)
[2023-05-03 19:47] VITALS: BP 119/73
--- NOTE | 2023-05-03 20:35 | PTCARENOTE ---
@2000; Pt removed yoselin bandage on left foot.Pt stated,'I thought it had to come off.'Pt is oriented to name and hospital.Pt is forgetful and was instructed earlier not to touch left foot dressing.Left foot dressing saturated with bright red
blood.Reinforced left foot dressing with 4x4,more José Ulis and new yoselin wrap dressing.Med sitter ordered and in room to observe pt for wound safety.
[2023-05-03 21:20] LABS: Glucose - Point of Care 107 mg/dl (70-99)
[2023-05-03 23:30] VITALS: BP 130/69
[2023-05-04] MEDS: ZOSYN 50 IV ×2 (01:01→08:10)
[2023-05-04 06:00] VITALS: BMI 23.6
[2023-05-04 06:17] LABS: % Basophils 0.4 % (0-2); % Immature Granulocytes 0.4 % (0-0.5); % Lymphocytes 4.2 % (20.5-51.1); % Monocytes 7.9 % (1.7-9.3); % Neutrophils 83.1 % (42.2-75.2); Absolute Eosinophils 0.4 10^3/uL (0-0.7); Absolute Lymphocytes 0.4 10^3/uL (1.2-3.4); Absolute Monocytes 0.7 10^3/uL (0.1-0.6); Absolute Neutrophils 7.6 10^3/uL (1.4-6.5); Hematocrit 33.9 % (39.0-52.0); Hemoglobin 12.3 g/dL (13.0-18.0); Mean Corp Hgb Conc. 36.3 g/dL (33.0-37.0); Mean Corpuscular Hgb 30.7 pg (27.0-31.0); Mean Corpuscular Volume 84.5 fL (80.0-94.0); Mean Platelet Volume 10.2 fL (7.4-10.4); Nucleated Red Blood Cells % 0 % (-); Platelet Count 202 10^3/uL (130-400); Red Blood Cell Count 4.01 10^6/uL (4.70-6.10); Red Cell Dist. Width 12.9 % (11.5-14.5); White Blood Cell Count 9.1 10^3/uL (4.8-10.8)
[2023-05-04 06:39] LABS: ALT (SGPT) 143 U/L (0-50); AST (SGOT) 44 U/L (17-59); Alkaline Phosphatase 120 U/L (38-126); Blood Urea Nitrogen 9 mg/dl (9-20); Calcium 7.8 mg/dl (8.4-10.2); Carbon Dioxide 24 mmol/L (22-30); Chloride 103 mmol/L (98-107); Estimated Creatinine Clearance 89 ml/min; Glucose 126 mg/dl (70-99); Potassium 3.3 mmol/L (3.5-5.1); Sodium 134 mmol/L (135-145); Total Bilirubin 1.4 mg/dl (0.2-1.3); Total Protein 4.9 g/dl (6.3-8.2); eGFR > 60.00
[2023-05-04 06:44] LABS: Albumin 2.6 g/dl (3.5-5.0)
[2023-05-04 07:53] VITALS: BP 134/71
[2023-05-04] MEDS: PROTONIX IV 40 MG IV (08:10)
[2023-05-04] MEDS: NOVOLOG FLEXPEN-LOW RESISTANCE SC ×3 (08:10→16:52)
[2023-05-04] MEDS: NSS (PRESERVATIVE FREE) 10 ML IV (08:10)
[2023-05-04 08:11] LABS: Glucose - Point of Care 106 mg/dl (70-99)
[2023-05-04] MEDS: KCL 260 MEQ IV (09:15)
--- NOTE | 2023-05-04 11:29 | W.PN.GS2 ---
Today's Communication / Plan
-
Low-fat diet.
Will plan for surgery Saturday.
Assessment / Plan
-
Assessment: 82 y/o male with h/o CAD s/p CABG and subsequent stents in late 1989's early - pt state he had a cardic cath recently which was 'good' no valvular dz, no h/o heart failure with acute calculous cholecystitis and secondary
elevation of LFTs and leukocytosis. Tenderness in the right upper quadrant. US and MRCP with GB wall thickening, pericholecystic edema and stones, negative for choledocholithiasis, HIDA confirms cystic duct obstruction
Plavix washout
LFT's trending down. WBC count normalized
Plan: Plan for cholecystectomy after Plavix washout tentatively Saturday
Can try a low-fat diet today. If this causes an exacerbation of symptoms back down to a clear liquid diet.
continue Zosyn
continue to hold plavix
Time Spent
Total Time Spent with Patient (in minutes): 25
Subjective Data
-
Date of Service: May 04, 2023
Interval Events:
No acute events overnight. Slept well. Pain Controlled. Denies Nausea/Vomiting, +bowel function. Tolerating diet.
Objective Data
-
Intake and Output
05/03/23 05/04/23 05/05/23
06:59 06:59 06:59
Intake Total 100 / 100 1280 / 1280
Output Total 625 / 625
Balance -525 / -525 1280 / 1280
Intake:
Oral fluids 100 / 100 480 / 480
IV fluids (Total) 700 / 700
IV piggybacks 100 / 100
Output:
Urine, Voided 625 / 625
Other:
Number of approximated MODERATE 1
amounts of urine
How many times incontinent 2
SMALL amount urine
How many times incontinent 1
SATURATED amount urine
Vital Signs
Temp Pulse Resp BP Pulse Ox
98.1 F 74 17 134/71 94
05/04/23 07:53 05/04/23 07:53 05/04/23 07:53 05/04/23 07:53 05/04/23 07:53
Lab Results
05/04/23 05:47
05/04/23 05:47
Calcium 7.8 mg/dl (8.4-10.2) L 05/04/23 05:47
Magnesium 1.9 mg/dl (1.6-2.3) 05/01/23 06:25
Total Bilirubin 1.4 mg/dl (0.2-1.3) H 05/04/23 05:47
Direct Bilirubin Cancelled 04/30/23 18:35
AST 44 U/L (17-59) 05/04/23 05:47
ALT 143 U/L (0-50) H 05/04/23 05:47
Alkaline Phosphatase 120 U/L (38-126) 05/04/23 05:47
Total Protein 4.9 g/dl (6.3-8.2) L 05/04/23 05:47
Albumin 2.6 g/dl (3.5-5.0) L 05/04/23 05:47
Physical Exam
-
GENERAL/NEURO: Awake, Alert, no distress
CHEST: Unlabored breathing on RA
ABDOMEN: Soft, nondistended, mostly tender in the hypogastrium bilaterally. Minimal tenderness in the right upper quadrant.
--- NOTE | 2023-05-04 11:30 | W.PN.HOSP.TC ---
Today's Communication/Plan
-
Monitor vital signs as above
Timing of CCY per surgery
Replete potassium
Monitor LFTs
Assessment / Plan
Assessment / Plan
General:�Comfortable and Conversant
HEENT:�NormoCephalic, Anicteric
Respiratory:�Clear and Non Labored Respirations
Cardiac:�S1/S2 and Regular Rhythm
GI:�Soft, Non Tender and Non Distended
Rectal:�Deferred by Provider
Musculoskeletal:�No Clubbing, No Cyanosis and No Edema
Neuro:�Awake, Alert and Nonfocal/grossly intact
Psych:�Calm
Abdominal Pain 2/2 acute on chronic cholecystitis
Suspected sepsis (leukocytosis,tachypnea) 2/[address] with distended gallbladder with stones
LFTs and bili elevated, trend
GI and surgery following
MRI without CBD stone; possible acute alistair; HIDA confirms cystic duct obstruction
now on low fat; plan for CCY after plavix washout
Hyponatremia, suspect hypovolemic
-Continue IVFs
monitor
Coronary Artery Disease s/p CABG and Stents
- reports last stent in 1998
-Hold Plavix should he require surgery/procedure
Essential Hypertension
-Continue amlodipine
Hypokalemia
replete
Diabetes Mellitus, Type II
-Hold Januvia in acute setting
-Monitor sugars and continue coverage insulin
A1c 6.7
Dementia, unknown type
-Monitor for mood/behavior changes during hospitalization
overnight 05/01 pulled his IV out thinking he doesnt need it; currently no confusion or agitation
BPH
-Continue tamsulosin
-Monitor bladder scans
GERD
-Continue Protonix
DVT proph: Lovenox
Code Status: Full Code
Anticipated Discharge: 24 - 48 hours
Subjective/Interval History
-
Date of Service: May 04, 2023
denies pain
Objective Data
-
Labs:
Laboratory Results
05/04/23
05:47
WBC 9.1
Hgb 12.3 L
Hct 33.9 L
Plt Count 202
Sodium 134 L
Potassium 3.3 L
Chloride 103
Carbon Dioxide 24
BUN 9
Creatinine 0.5 L
Glucose 126 H
Calcium 7.8 L
Total Bilirubin 1.4 H
AST 44
ALT 143 H
Alkaline Phosphatase 120
Vital Signs:
Vital Signs
Temp Pulse Resp BP Pulse Ox
98.1 F 74 17 134/71 94
05/04/23 07:53 05/04/23 07:53 05/04/23 07:53 05/04/23 07:53 05/04/23 07:53
I&O
05/03/23 05/04/23 05/05/23
06:59 06:59 06:59
Intake Total 100 / 100 1280 / 1280
Output Total 625 / 625
Balance -525 / -525 1280 / 1280
[2023-05-04 12:48] LABS: Glucose - Point of Care 131 mg/dl (70-99)
[2023-05-04] MEDS: DUONEB 3 ML INH (14:01)
[2023-05-04] MEDS: MIRALAX 17 GRAMS PO (14:04)
[2023-05-04] MEDS: COLACE 100 MG PO (14:04)
[2023-05-04] MEDS: MORPHINE SULFATE 1 MG IV (14:04)
[2023-05-04 16:33] VITALS: BP 146/76
[2023-05-04] MEDS: LOVENOX 40 MG SC (16:44)
[2023-05-04] MEDS: FLOMAX 0.400000000000000022 MG PO (16:44)
[2023-05-04] MEDS: NORVASC 5 MG PO (16:44)
[2023-05-04 16:53] LABS: Glucose - Point of Care 144 mg/dl (70-99)
[2023-05-04] MEDS: SEROQUEL 12.5 MG PO (17:52)
[2023-05-04 18:35] LABS: Troponin I < 0.012 ng/ml
[2023-05-04 21:12] LABS: Glucose - Point of Care 165 mg/dl (70-99)
[2023-05-04] MEDS: COLACE PO (21:15)
[2023-05-04 23:11] VITALS: BP 113/53
[2023-05-04] MEDS: TYLENOL 650 MG PO (23:36)
[2023-05-05 03:14] VITALS: BP 126/88
[2023-05-05 06:00] VITALS: BMI 23.3
[2023-05-05 07:17] LABS: % Basophils 0.2 % (0-2); % Eosinophils 5.2 % (0-6); % Immature Granulocytes 0.2 % (0-0.5); % Lymphocytes 5.1 % (20.5-51.1); % Monocytes 13.4 % (1.7-9.3); % Neutrophils 75.9 % (42.2-75.2); Absolute Eosinophils 0.4 10^3/uL (0-0.7); Absolute Lymphocytes 0.4 10^3/uL (1.2-3.4); Absolute Monocytes 1.1 10^3/uL (0.1-0.6); Absolute Neutrophils 6.2 10^3/uL (1.4-6.5); Hematocrit 33.3 % (39.0-52.0); Hemoglobin 11.9 g/dL (13.0-18.0); Mean Corp Hgb Conc. 35.7 g/dL (33.0-37.0); Mean Corpuscular Hgb 30.7 pg (27.0-31.0); Mean Corpuscular Volume 85.8 fL (80.0-94.0); Mean Platelet Volume 10.3 fL (7.4-10.4); Nucleated Red Blood Cells % 0 % (-); Platelet Count 220 10^3/uL (130-400); Red Blood Cell Count 3.88 10^6/uL (4.70-6.10); Red Cell Dist. Width 12.8 % (11.5-14.5); White Blood Cell Count 8.2 10^3/uL (4.8-10.8)
[2023-05-05 07:23] VITALS: BP 131/66
[2023-05-05 07:38] VITALS: BP 131/66
[2023-05-05 07:50] LABS: Glucose - Point of Care 134 mg/dl (70-99)
[2023-05-05 07:59] LABS: ALT (SGPT) 120 U/L (0-50); AST (SGOT) 39 U/L (17-59); Albumin 2.6 g/dl (3.5-5.0); Alkaline Phosphatase 114 U/L (38-126); Blood Urea Nitrogen 10 mg/dl (9-20); Calcium 7.6 mg/dl (8.4-10.2); Carbon Dioxide 26 mmol/L (22-30); Chloride 105 mmol/L (98-107); Estimated Creatinine Clearance 76 ml/min; Glucose 126 mg/dl (70-99); Potassium 3.1 mmol/L (3.5-5.1); Sodium 134 mmol/L (135-145); Total Bilirubin 1.1 mg/dl (0.2-1.3); Total Protein 4.9 g/dl (6.3-8.2); eGFR > 60.00
[2023-05-05] MEDS: NOVOLOG FLEXPEN-LOW RESISTANCE SC ×3 (09:13→16:58)
[2023-05-05] MEDS: PROTONIX IV 40 MG IV (09:14)
[2023-05-05] MEDS: KLOR-CON 40 MEQ PO (09:14)
[2023-05-05] MEDS: MIRALAX PO (09:15)
[2023-05-05] MEDS: NSS (PRESERVATIVE FREE) 10 ML IV (09:15)
[2023-05-05] MEDS: COLACE PO ×2 (09:15→19:58)
--- NOTE | 2023-05-05 09:15 | W.PN.GS2 ---
Today's Communication / Plan
-
No changes. Zosyn restarted.
Plan for or tomorrow. N.p.o. at midnight.
Assessment / Plan
-
Assessment: 82 y/o male with h/o CAD s/p CABG and subsequent stents in late 1989's early - pt state he had a cardic cath recently which was 'good' no valvular dz, no h/o heart failure with acute calculous cholecystitis and secondary
elevation of LFTs and leukocytosis. Tenderness in the right upper quadrant. US and MRCP with GB wall thickening, pericholecystic edema and stones, negative for choledocholithiasis, HIDA confirms cystic duct obstruction
Plavix washout
LFT's trending down. WBC count normalized
Plan: Given hypogastric pain, and now urinary retention would consider UA/UCx
Plan for cholecystectomy after Plavix washout tentatively Saturday
Can try a low-fat diet today. If this causes an exacerbation of symptoms back down to a clear liquid diet.
continue Zosyn
continue to hold plavix
Time Spent
Total Time Spent with Patient (in minutes): 10
Subjective Data
-
Date of Service: May 05, 2023
Interval Events:
No acute events overnight. Slept well. Pain Controlled. Denies Nausea/Vomiting, +bowel function. Tolerating diet.
Objective Data
-
Intake and Output
05/04/23 05/05/23 05/06/23
06:59 06:59 06:59
Intake Total 1280 / 1280 500 / 500
Output Total 645 / 645
Balance 1280 / 1280 -145 / -145
Intake:
Oral fluids 480 / 480 500 / 500
IV fluids (Total) 700 / 700
IV piggybacks 100 / 100
Output:
Urine, Voided 300 / 300
Straight cath output 345 / 345
Other:
Number of approximated MODERATE 1 1
amounts of urine
Number of approximated LARGE 1
amounts of urine
How many times incontinent 1
MODERATE amount urine
How many times incontinent 1 2
SATURATED amount urine
Vital Signs
Temp Pulse Resp BP Pulse Ox
98.0 F 76 16 131/66 93
05/05/23 07:38 05/05/23 07:38 05/05/23 07:38 05/05/23 07:38 05/05/23 07:38
Lab Results
05/05/23 06:23
05/05/23 06:23
Calcium 7.6 mg/dl (8.4-10.2) L 05/05/23 06:23
Magnesium 1.9 mg/dl (1.6-2.3) 05/01/23 06:25
Total Bilirubin 1.1 mg/dl (0.2-1.3) 05/05/23 06:23
Direct Bilirubin Cancelled 04/30/23 18:35
AST 39 U/L (17-59) 05/05/23 06:23
ALT 120 U/L (0-50) H 05/05/23 06:23
Alkaline Phosphatase 114 U/L (38-126) 05/05/23 06:23
Total Protein 4.9 g/dl (6.3-8.2) L 05/05/23 06:23
Albumin 2.6 g/dl (3.5-5.0) L 05/05/23 06:23
Physical Exam
-
GENERAL/NEURO: Awake, Alert, no distress
CHEST: Unlabored breathing on RA
ABDOMEN: Soft, nondistended, still mostly tender in the hypogastrium bilaterally. minimal tenderness in the right upper quadrant.
[2023-05-05] MEDS: ZOSYN 50 IV ×3 (09:22→21:19)
--- NOTE | 2023-05-05 12:19 | W.PN.HOSP.TC ---
Today's Communication/Plan
-
Monitor vitals
See plan
Plan for cholecystectomy in a.m. after Plavix was started
Check UA
Bladder scan
called ; left voicemail
Assessment / Plan
Assessment / Plan
General:�Comfortable and Conversant
HEENT:�NormoCephalic, Anicteric
Respiratory:�Clear and Non Labored Respirations
Cardiac:�S1/S2 and Regular Rhythm
GI:�Soft, Non Tender and Non Distended
Rectal:�Deferred by Provider
Musculoskeletal:�No Clubbing, No Cyanosis and No Edema
Neuro:�Awake, Alert and Nonfocal/grossly intact
Psych:�Calm
Abdominal Pain 2/2 acute on chronic cholecystitis
Suspected sepsis (leukocytosis,tachypnea) 2/[address] with distended gallbladder with stones
LFTs and bili elevated, trend
GI and surgery following
MRI without CBD stone; possible acute alistair; HIDA confirms cystic duct obstruction
now on low fat; plan for CCY 3/4 after plavix washout
Hyponatremia
monitor
Agitation and cofusion 3/
hx of dementia;unknown type; suspect ocassional behavioral changes
Suspect secondary to ing
Low-dose Seroquel given at that time and patient responded
Mild suprapubic discomfort
hx of BPH
bladder scan
check UA
-Continue tamsulosin
Coronary Artery Disease s/p CABG and Stents
- reports last stent in 1998
-Hold Plavix should he require surgery/procedure
Essential Hypertension
-Continue amlodipine
Hypokalemia
replete
Diabetes Mellitus, Type II
-Hold Januvia in acute setting
-Monitor sugars and continue coverage insulin
A1c 6.7
GERD
-Continue Protonix
DVT proph: Lovenox
Code Status: Full Code
Anticipated Discharge: 24 - 48 hours
Subjective/Interval History
-
Date of Service: May 05, 2023
has some pain
Objective Data
-
Labs:
Laboratory Results
05/05/23
06:23
WBC 8.2
Hgb 11.9 L
Hct 33.3 L
Plt Count 220
Sodium 134 L
Potassium 3.1 L
Chloride 105
Carbon Dioxide 26
BUN 10
Creatinine 0.7
Glucose 126 H
Calcium 7.6 L
Total Bilirubin 1.1
AST 39
ALT 120 H
Alkaline Phosphatase 114
Vital Signs:
Vital Signs
Temp Pulse Resp BP Pulse Ox
98.0 F 76 16 131/66 93
05/05/23 07:38 05/05/23 07:38 05/05/23 07:38 05/05/23 07:38 05/05/23 07:38
I&O
05/04/23 05/05/23 05/06/23
06:59 06:59 06:59
Intake Total 1280 / 1280 500 / 500
Output Total 645 / 645
Balance 1280 / 1280 -145 / -145
[2023-05-05 13:17] LABS: Glucose - Point of Care 118 mg/dl (70-99)
[2023-05-05 13:55] LABS: Urine Albumin Negative (Neg - Trace); Urine Bilirubin Negative (Negative); Urine Character Clear (Clear); Urine Color Yellow; Urine Glucose 1+ (Negative); Urine Ketone Negative (Negative); Urine Leukocyte Negative (Negative); Urine Nitrite Negative (Negative); Urine Occult Blood Negative (Negative); Urine Urobilinogen Negative (Neg - 1+)
[2023-05-05 15:05] VITALS: BP 146/73
[2023-05-05 16:41] LABS: Glucose - Point of Care 121 mg/dl (70-99)
[2023-05-05] MEDS: LOVENOX 40 MG SC (17:30)
[2023-05-05] MEDS: NORVASC 5 MG PO (17:31)
[2023-05-05] MEDS: FLOMAX 0.400000000000000022 MG PO (17:31)
[2023-05-05] MEDS: FLUSH (NSS) 2 FLUSH IV (21:20)
[2023-05-06] VITALS (10 sets, daily range): BP systolic 0–152; BP diastolic 47–87; BMI 22.1
[2023-05-06] MEDS: ZOSYN 50 IV ×4 (03:44→21:29)
[2023-05-06] MEDS: FLUSH (NSS) 2 FLUSH IV (03:45)
[2023-05-06 06:10] LABS: % Basophils 0.6 % (0-2); % Eosinophils 9.4 % (0-6); % Immature Granulocytes 0.5 % (0-0.5); % Lymphocytes 6.7 % (20.5-51.1); % Monocytes 10.4 % (1.7-9.3); % Neutrophils 72.4 % (42.2-75.2); Absolute Basophils 0.1 10^3/uL (0-0.2); Absolute Eosinophils 0.7 10^3/uL (0-0.7); Absolute Lymphocytes 0.5 10^3/uL (1.2-3.4); Absolute Monocytes 0.8 10^3/uL (0.1-0.6); Absolute Neutrophils 5.6 10^3/uL (1.4-6.5); Hematocrit 34.3 % (39.0-52.0); Hemoglobin 12.3 g/dL (13.0-18.0); Mean Corp Hgb Conc. 35.9 g/dL (33.0-37.0); Mean Corpuscular Hgb 30.7 pg (27.0-31.0); Mean Corpuscular Volume 85.5 fL (80.0-94.0); Mean Platelet Volume 9.8 fL (7.4-10.4); Nucleated Red Blood Cells % 0 % (-); Platelet Count 244 10^3/uL (130-400); Red Blood Cell Count 4.01 10^6/uL (4.70-6.10); White Blood Cell Count 7.8 10^3/uL (4.8-10.8)
[2023-05-06 06:40] LABS: ALT (SGPT) 98 U/L (0-50); AST (SGOT) 35 U/L (17-59); Albumin 2.8 g/dl (3.5-5.0); Alkaline Phosphatase 93 U/L (38-126); Blood Urea Nitrogen 8 mg/dl (9-20); Carbon Dioxide 27 mmol/L (22-30); Chloride 101 mmol/L (98-107); Estimated Creatinine Clearance 85 ml/min; Glucose 136 mg/dl (70-99); Potassium 3.2 mmol/L (3.5-5.1); Sodium 134 mmol/L (135-145); Total Bilirubin 0.9 mg/dl (0.2-1.3); Total Protein 5.1 g/dl (6.3-8.2); eGFR > 60.00
[2023-05-06 06:52] LABS: Glucose - Point of Care 142 mg/dl (70-99)
[2023-05-06] MEDS: NOVOLOG FLEXPEN-LOW RESISTANCE SC ×2 (07:21→11:25)
[2023-05-06] MEDS: PROTONIX IV 40 MG IV (08:19)
[2023-05-06] MEDS: COLACE 100 MG PO ×2 (08:19→19:36)
[2023-05-06] MEDS: NSS (PRESERVATIVE FREE) 10 ML IV (08:19)
[2023-05-06] MEDS: MIRALAX PO (08:19)
[2023-05-06] MEDS: KCL 270 MEQ IV (08:19)
--- NOTE | 2023-05-06 10:36 | W.PN.HOSP.TC ---
Today's Communication/Plan
-
Monitor vital signs see plan
N.p.o. for CCY today
cw abx per surgery
Assessment / Plan
Assessment / Plan
General:�Comfortable and Conversant
HEENT:�NormoCephalic, Anicteric
Respiratory:�Clear and Non Labored Respirations
Cardiac:�S1/S2 and Regular Rhythm
GI:�Soft, Non Tender and Non Distended
Musculoskeletal:�No Clubbing, No Cyanosis and No Edema
Neuro:�Awake, Alert and Nonfocal/grossly intact
Psych:�Calm
Abdominal Pain 2/2 acute on chronic cholecystitis
Suspected sepsis (leukocytosis,tachypnea) 2/[address] with distended gallbladder with stones
LFTs and bili elevated, trend
GI and surgery following
MRI without CBD stone; possible acute alistair; HIDA confirms cystic duct obstruction
now on low fat; plan for CCY 3/ after plavix washout
on zosyn by surgery
Hyponatremia
monitor
Agitation and cofusion 3/
hx of dementia;unknown type; suspect occasional behavioral changes
Suspect secondary to sundowning; now improved
Low-dose Seroquel given at that time and patient responded
Mild suprapubic discomfort
improved
hx of BPH
bladder scan
UA without UTI
-Continue tamsulosin
Coronary Artery Disease s/p CABG and Stents
- reports last stent in 1998
-Hold Plavix should he require surgery/procedure
Essential Hypertension
-Continue amlodipine
Hypokalemia
replete
Diabetes Mellitus, Type II
-Hold Januvia in acute setting
-Monitor sugars and continue coverage insulin
A1c 6.7
GERD
-Continue Protonix
DVT proph: Lovenox
Code Status: Full Code
Anticipated Discharge: 24 - 48 hours
Subjective/Interval History
-
Date of Service: May 06, 2023
denies nausea
Objective Data
-
Labs:
Laboratory Results
05/06/23
05:38
WBC 7.8
Hgb 12.3 L
Hct 34.3 L
Plt Count 244
Sodium 134 L
Potassium 3.2 L
Chloride 101
Carbon Dioxide 27
BUN 8 L
Creatinine 0.6 L
Glucose 136 H
Calcium 8.0 L
Total Bilirubin 0.9
AST 35
ALT 98 H
Alkaline Phosphatase 93
Vital Signs:
Vital Signs
Temp Pulse Resp BP Pulse Ox
98.1 F 71 18 152/70 94
05/06/23 07:00 05/06/23 07:00 05/06/23 07:00 05/06/23 07:00 05/06/23 07:00
I&O
05/05/23 05/06/23 05/07/23
06:59 06:59 06:59
Intake Total 500 / 500 860 / 860
Output Total 645 / 645 100 / 100
Balance -145 / -145 760 / 760
[2023-05-06 11:24] LABS: Glucose - Point of Care 117 mg/dl (70-99)
--- NOTE | 2023-05-06 12:45 | CM ---
i have called and left [facility] with asking to return my call.per therapy note,patient lives with spouse in house with 4 steps to enter.his bed and bath is on the first level.he does not have to use stairs.he ambulates with A with a rolling
walker.therapy has seen patient and recommended snf loc.patient is adm with change of mental status. patient is having a alistair today.
Plan is dc to snf when stable for dc. cm will continue to reach out to . re snf facilities.
--- NOTE | 2023-05-06 14:35 | W.SUR.PREOP ---
Pre-Operative Surgical Note
-
I have examined this patient prior to the performance of the scheduled procedure.
The patient's condition is unchanged from the time of the current History and
Physical and the patient is able to undergo the scheduled procedure.
--- NOTE | 2023-05-06 14:35 | W.IMMPOSTOP ---
Surgical Immed Post Op Note
-
Primary Surgeon: Rambo Brian MD
Assisting Surgeon: None
Pre-op Diagnosis: Acute cholecystitis
Post-op Diagnosis: Gangrenous cholecystitis
Procedure Performed: Laparoscopic cholecystectomy with cholangiogram
Anesthesia Type: General
Specimen / Cultures:
1. Gallbladder
Estimated Blood Loss: 31 cc
Complications: None
Operative Findings: Gangrenous/necrotic cholecystitis with dense overlying omental adhesions. Top-down cholecystectomy, spillage of bile and gallstones. Cystic artery identified and ligated. Cholangiogram performed through the gallbladder
infundibulum which confirmed anatomy. Sluggish flow into the duodenum but this improved after administration of glucagon. No distal filling defects in the CBD identified. Gallbladder taken down to presumed cystic duct junction but no clear
healthy viable tissue was identified. The was ligated with duct 2-0 PDS Endoloops. Surgicel placed in the gallbladder fossa and in the inflamed fatty tissue overlying the duodenum. No acute fracture drain placed through the lateral right upper
quadrant port lateral to the liver and into the gallbladder fossa.
POST OP PLAN:
Imaging: None
Labs: Routine AM
Diet: Advance to Regular as tolerated
Analgesia: Tylenol 650mg q6 Augustin, Kenia 5mg q6 PRN, Dilaudid 0.5mg q2h PRN
Neuro/vascular checks: q4h
AC/AP: Hold Therapeutic AC, Ok for DVT PPx
Activity: Ad Miladys
Wound/Incisions/Drains: Routine, LALO drain to bulb suction.
Abx: Zosyn or equivalent x 4 more days
Dispo: RNF, can begin dispo planning. Anticipate discharge with the drain x 1 week
[2023-05-06] MEDS: DILAUDID 0.25 MG IV ×2 (14:46→15:03)
[2023-05-06 15:02] LABS: Glucose - Point of Care 231 mg/dl (70-99)
--- NOTE | 2023-05-06 15:05 | OR.RPT ---
Operative Report
Operative Report
Patient Name: Luke Gordon
: 1940
Date of Operation: 05/06/2023
Preoperative Diagnosis: Acute cholecystitis
Postoperative Diagnosis: Gangrenous cholecystitis
Procedure(s):
Laparoscopic Cholecystectomy with Cholangiogram
Surgeon(s):
Dr. Brian
Salesperson [employer]ing [employer](s):
None
Anesthesia: General
Estimated Blood Loss: 31 cc
Urine Output: None
Drains/Lines/Implants: 19 Gambian round Juan A
Specimens:
1. Gallbladder and contents
HPI/Surgical Indications:
This is an 82-year-old male on Plavix who presents with a 4-day history of right upper quadrant abdominal pain. Exam, labs and imaging are consistent with acute cholecystitis. He was managed nonoperatively for 5 days on antibiotics to allow for his
Plavix to washout before surgery. Risks/Benefits/Alternatives were discussed at length, and the patient and his agreed to proceed with surgery.
Operative Findings: Gangrenous/necrotic cholecystitis with dense overlying omental adhesions.� Top-down cholecystectomy, spillage of bile and gallstones.� Cystic artery identified and ligated.� Cholangiogram performed through the gallbladder
infundibulum which confirmed anatomy.� Sluggish flow into the duodenum but this improved after administration of glucagon.� No distal filling defects in the CBD identified.� Gallbladder taken down to presumed cystic duct junction but no clear
healthy viable tissue was identified.� The was ligated with duct 2-0 PDS Endoloops.� Surgicel placed in the gallbladder fossa and in the inflamed fatty tissue overlying the duodenum.� No acute fracture drain placed through the lateral right upper
quadrant port lateral to the liver and into the gallbladder fossa.
Procedure Description:
The patient was brought to the Operating Room and placed in the supine position with one arm tucked. Following uneventful induction of general endotracheal anesthesia, an orogastric tube was placed. The abdomen was prepped and draped in the usual
sterile fashion. A timeout was performed confirming the procedure, consent, and that IV antibiotics were infused. The abdomen was entered using an infraumbilical open Rocio technique with a 12 mm trochar. Pneumoperitoneum to 15 mmHg pressure was
obtained without difficulty and we confirmed that no injury had occurred during our entry. The patient was positioned in reverse Trendelenberg and rotated with the right side up slightly. Two 5mm trocars were then placed along the right subcostal
margin, and a 12 mm port in the epigastrium. There were significant omental adhesions over the gallbladder which were taken down with electrocautery. The gallbladder fundus was notably necrotic. The gallbladder was emptied using a decompressing
needle through the fundus of the gallbladder with evacuation of bile before A locking grasping forceps was placed on the fundus of the gallbladder where it was then retracted cephalad and to the right. Initially attempted to our dissection in the
standard fashion incising the peritoneum over the triangle of Calot however there was so much inflammation that identifying a safe plane was quite difficult. We then converted to a top-down approach and were able to get into a good plane between
the gallbladder and the liver. There were a few small rents made on the posterior side of the gallbladder with spillage of bile and stones. 2 4 x 4 Ray-Tecs were placed intra-abdominally to help trap the small black pigmented stones as well as
help with hemostasis. The gallbladder was carefully dissected inferiorly both medially and laterally. We were able to take the proximal gallbladder off of the cystic plate but true cystic duct could not readily be identified. A small ductotomy
was made and cholangiogram was performed which demonstrated fairly normal biliary anatomy. There was not immediate flow of contrast into the duodenum so 1 mg of glucagon was given and the catheter was flushed once again. After allowing 2 minutes
for the medication to take effect a repeat cholangiogram was performed this time with good flow of contrast into the duodenum. This also helped us gauge how much further distance we had to the cystic duct which was roughly an additional 2 cm. We
continued our dissection proximally until we got to the cystic duct infundibular junction. Tissues here still appeared fairly necrotic. The cystic artery was identified and ligated with 5 mm clips. Cystic duct was ligated with 2-0 PDS Endoloops
and the distal end was divided. The gallbladder was placed in an Endo Catch bag along with as many free stones as we could place in there. The remaining stones were carefully suctioned up individually in the Ray-Hernan's were removed. The right
upper quadrant was flooded and a few additional stones were identified and removed. There we obtained hemostasis a small piece of Surgicel was placed over the gallbladder fossa as well as over some of the inflamed tissue that we have peeled off of
the gallbladder that was overlying the duodenum. A 19 Gambian round Juan A drain was then placed through the right most lateral port and passed under the right liver and across the gallbladder fossa. This was secured in place with a 2-0 nylon stitch.
The epigastric port was then closed with 0 PDS suture using a Elkin Eaton. The remaining ports were then removed and pneumoperitoneum was evacuated. The umbilical port was then closed with 0 PDS [id number] suture. All trocar sites were
closed at the skin level using 4-0 Monocryl followed by Dermabond. Overall, the patient tolerated the procedure well and was taken to the Recovery Room postoperatively in stable condition.
I was the attending physician and performed the procedure with no assistance. I was present for all portions of the case
Rambo Brian MD
[2023-05-06 17:44] LABS: Glucose - Point of Care 178 mg/dl (70-99)
[2023-05-06] MEDS: LOVENOX 40 MG SC (17:46)
[2023-05-06] MEDS: NORVASC 5 MG PO (17:47)
[2023-05-06] MEDS: NOVOLOG FLEXPEN-LOW RESISTANCE 1 UNITS SC (17:47)
[2023-05-06] MEDS: FLOMAX 0.400000000000000022 MG PO (17:47)
[2023-05-06 22:54] LABS: Glucose - Point of Care 197 mg/dl (70-99)
[2023-05-06] MEDS: TYLENOL 650 MG PO (22:56)
[2023-05-07 04:00] VITALS: BP 141/70
[2023-05-07] MEDS: ZOSYN 50 IV ×4 (04:01→21:54)
[2023-05-07 04:20] VITALS: BMI 22.5
[2023-05-07] MEDS: TYLENOL 650 MG PO ×3 (06:12→14:52)
[2023-05-07 06:30] LABS: % Basophils 0.1 % (0-2); % Immature Granulocytes 0.4 % (0-0.5); % Lymphocytes 2.2 % (20.5-51.1); % Monocytes 7.2 % (1.7-9.3); % Neutrophils 90.1 % (42.2-75.2); Absolute Immature Granulocytes 0.1 10^3/uL (0-0.05); Absolute Lymphocytes 0.3 10^3/uL (1.2-3.4); Absolute Neutrophils 12.1 10^3/uL (1.4-6.5); Hematocrit 34.9 % (39.0-52.0); Hemoglobin 12.2 g/dL (13.0-18.0); Mean Corpuscular Hgb 30.5 pg (27.0-31.0); Mean Corpuscular Volume 87.3 fL (80.0-94.0); Mean Platelet Volume 9.7 fL (7.4-10.4); Nucleated Red Blood Cells % 0 % (-); Platelet Count 260 10^3/uL (130-400); Red Cell Dist. Width 12.6 % (11.5-14.5); White Blood Cell Count 13.4 10^3/uL (4.8-10.8)
--- NOTE | 2023-05-07 06:41 | CM ---
multiple calls sent to and vmm left to return my calls.Finally,met with patient melissa and family at bedside.patient liveswith his in 2 story home with 4 steps to enter,his bed and bath is on the first level.he ambulates with S
with a rolling walker.his A with bathing,grooming.he has a walk in shower and shower chair.his pcp is dr bolanos and he uses [facility] in [place],
patient with dementia,iddm is adm from home with change in ms.he is oriented to person only. indicated he is worse cognitively than his baseline. he is sp adrian sainz .he has had a vn from [facility] in the past.patient was seen by therapy who
recommended skilled rehab, and daughter would like referral sent to [facility].they do not want patient to go to [facility].referral sent via care port.
[2023-05-07 06:49] LABS: ALT (SGPT) 107 U/L (0-50); AST (SGOT) 64 U/L (17-59); Albumin 2.8 g/dl (3.5-5.0); Alkaline Phosphatase 88 U/L (38-126); Blood Urea Nitrogen 14 mg/dl (9-20); Calcium 8.1 mg/dl (8.4-10.2); Carbon Dioxide 27 mmol/L (22-30); Chloride 100 mmol/L (98-107); Estimated Creatinine Clearance 75 ml/min; Glucose 178 mg/dl (70-99); Sodium 133 mmol/L (135-145); Total Bilirubin 0.7 mg/dl (0.2-1.3); Total Protein 5.3 g/dl (6.3-8.2); eGFR > 60.00
[2023-05-07 08:13] VITALS: BP 138/81
[2023-05-07 08:21] LABS: Glucose - Point of Care 149 mg/dl (70-99)
[2023-05-07] MEDS: NOVOLOG FLEXPEN-LOW RESISTANCE SC ×2 (08:43→16:45)
[2023-05-07] MEDS: PROTONIX IV 40 MG IV (08:46)
[2023-05-07] MEDS: MIRALAX 17 GRAMS PO (08:46)
[2023-05-07] MEDS: COLACE 100 MG PO ×2 (08:46→19:56)
[2023-05-07] MEDS: NSS (PRESERVATIVE FREE) 10 ML IV (08:46)
--- NOTE | 2023-05-07 09:42 | W.PN.GS2 ---
Today's Communication / Plan
-
-- Diet: Regular, supplement shakes added
-- Pain control: Tylenol, IV Morphine PRN, added Tramadol if needed
-- Abx: Zosyn, would DC on Augmentin for total of 4 days-.
-- Continue to hold closed Plavix, OK to resume 48-72 hrs post-op
-- Likely too weak for DC today
Assessment / Plan
-
Assessment: 82 y/o male with h/o CAD s/p CABG and subsequent stents in late 1989's early - pt state he had a cardic cath recently which was 'good' no valvular dz, no h/o heart failure with acute calculous cholecystitis and secondary
elevation of LFTs and leukocytosis. Tenderness in the right upper quadrant. US and MRCP with GB wall thickening, pericholecystic edema and stones, negative for choledocholithiasis, HIDA confirms cystic duct obstruction
POD#1 s/p laparoscopic cholecystectomy with IOC
AVSS
Post-op leukocytosis, LFT bump related to liver manipulation, bilirubin normal
LALO with minimal old blood, non-bilious
Plan:
-- Diet: Regular, supplement shakes added
-- Pain control: Tylenol, IV Morphine PRN, added Tramadol if needed
-- Abx: Zosyn, would DC on Augmentin for total of 4 days-.
-- Continue to hold closed Plavix, OK to resume 48-72 hrs post-op
-- Lovenox for DVT
-- PPI for GI
-- Likely too weak for DC today
Subjective Data
-
Date of Service: May 07, 2023
Feels tired and rundown. Abdominal soreness, but denies significant pain. No fevers. No nausea or vomiting. No ambulation.
Objective Data
-
Intake and Output
03/04/24 03/05/24 03/06/24
06:59 06:59 06:59
Intake Total 860 / 860 880 / 880
Output Total 100 / 100 290 / 290
Balance 760 / 760 590 / 590
Intake:
Oral fluids 760 / 760 680 / 680
IV fluids (Total) 100 / 100
normosol 100 / 100
IV piggybacks 100 / 100 100 / 100
Output:
Drain Output (Total) 90 /
Abdomen 0 / 0
Right Middle Jairo-Reyes 90 /
Urine, Voided 100 / 100 200 / 200
Other:
How many times incontinent 1
How many times incontinent 2
SMALL amount urine
How many times incontinent 1
MODERATE amount urine
How many times incontinent 1 1
SATURATED amount urine
Number of unmeasured liquid
stools
Rectum 4
Vital Signs
Temp Pulse Resp BP Pulse Ox
97.9 F 81 20 138/81 94
05/07/23 08:13 05/07/23 08:13 05/07/23 08:13 05/07/23 08:13 05/07/23 08:13
Lab Results
05/07/23 05:34
05/07/23 05:34
Calcium 8.1 mg/dl (8.4-10.2) L 05/07/23 05:34
Magnesium 1.9 mg/dl (1.6-2.3) 05/01/23 06:25
Total Bilirubin 0.7 mg/dl (0.2-1.3) 05/07/23 05:34
Direct Bilirubin Cancelled 04/30/23 18:35
AST 64 U/L (17-59) H 05/07/23 05:34
ALT 107 U/L (0-50) H 05/07/23 05:34
Alkaline Phosphatase 88 U/L (38-126) 05/07/23 05:34
Total Protein 5.3 g/dl (6.3-8.2) L 05/07/23 05:34
Albumin 2.8 g/dl (3.5-5.0) L 05/07/23 05:34
Physical Exam
-
Gen: NAD
Abd: soft, mild tenderness, ND, non-peritoneal, incisions c/d/i - no erythema, ecchymosis or drainage, LALO with old dark blood (stained with surgicel)
[2023-05-07 12:16] LABS: Glucose - Point of Care 186 mg/dl (70-99)
[2023-05-07] MEDS: NOVOLOG FLEXPEN-LOW RESISTANCE 1 UNITS SC (12:25)
--- NOTE | 2023-05-07 12:50 | W.PN.HOSP.TC ---
Today's Communication/Plan
-
see bold
Assessment / Plan
Assessment / Plan
Gen: NAD, Awake and alert, NCAT
Eyes: EOMI, PERRLA, no scleral icterus.
Neck: supple.
CV: RRR, +S1/S2, no m/r/g.
Resp: CTAB, no rales, wheezes, or rhonchi.
Abd: +BS, soft, NT to light palpation, ND
Skin: No rashes.
Neuro: CN 2-12 intact, non-focal.
Psych: Normal mood and affect.
MRI abd:
1. No MRCP evidence for choledocholithiasis.
2. Mild prominence of the extrahepatic bile ducts and main pancreatic duct without evidence for an obstructive process/mass.
3. Cholelithiasis/gallbladder sludge, gallbladder wall thickening, and right upper quadrant pericholecystic fluid/inflammation with an imaging appearance that is most suspicious for acute cholecystitis.
HIDA:
1. No filling of the gallbladder at 60 minutes, nor following intravenous morphine administration. Findings suggestive of acute cholecystitis in the correct clinical setting.
2. No evidence of complete common bile duct obstruction.
Abdominal Pain and sepsis due to acute on chronic cholecystitis:
-s/p Lap alistair on 05/06/23 (after Plavix washout), intraoperative cholangiogram without choledocholithiasis
-GI/surgery following
-Currently on Zosyn as per surgery
Other problems:
Hyponatremia, mild
Hypokalemia, resolved
Dementia, likely Alzheimer's type, with behavioral disturbances and sundowning
BPH: cont Flomax
CAD s/p CABG and stents: resume plavix when OK with surgery
Essential Hypertension: cont Norvasc
DM2: a1c 6.7%, SSI/accuchecks
GERD: cont PPI
FULL/Lovenox
Anticipated Discharge: 24 - 48 hours
Subjective/Interval History
-
Date of Service: May 07, 2023
No new complaints.
Objective Data
-
Labs:
Laboratory Results
05/07/23
05:34
WBC 13.4 H
Hgb 12.2 L
Hct 34.9 L
Plt Count 260
Sodium 133 L
Potassium 4.0
Chloride 100
Carbon Dioxide 27
BUN 14
Creatinine 0.7
Glucose 178 H
Calcium 8.1 L
Total Bilirubin 0.7
AST 64 H
ALT 107 H
Alkaline Phosphatase 88
Vital Signs:
Vital Signs
Temp Pulse Resp BP Pulse Ox
97.9 F 81 20 138/81 94
05/07/23 08:13 05/07/23 08:13 05/07/23 08:13 05/07/23 08:13 05/07/23 08:13
I&O
05/06/23 05/07/23 05/08/23
06:59 06:59 06:59
Intake Total 860 / 860 880 / 880
Output Total 100 / 100 290 / 290
Balance 760 / 760 590 / 590
[2023-05-07 15:00] VITALS: BP 147/77
[2023-05-07 15:37] VITALS: BMI 22.5
--- NOTE | 2023-05-07 16:06 | CM ---
Chart reviewed.
Spoke with pts son Jimbo ([phone]) and sister regarding SNF placement
Family made aware pt has been accepted at [facility] - pending bed availability
Picked 2 additional options - [facility] in [place]
Referral sent to both in Care Port
Cell phone for pts , Mrs Gordon is [phone].
Plan - transfer to SNF - tbd when medically stable
[2023-05-07 16:36] LABS: Glucose - Point of Care 148 mg/dl (70-99)
[2023-05-07] MEDS: LOVENOX 40 MG SC (17:44)
[2023-05-07] MEDS: NORVASC 5 MG PO (17:44)
[2023-05-07] MEDS: FLOMAX 0.400000000000000022 MG PO (17:44)
[2023-05-07 21:15] LABS: Glucose - Point of Care 145 mg/dl (70-99)
[2023-05-07] MEDS: ULTRAM 25 MG PO (22:00)
[2023-05-07 23:04] VITALS: BP 142/68
[2023-05-08] MEDS: ZOSYN 50 IV ×2 (04:45→10:01)
[2023-05-08 06:00] VITALS: BMI 21.3
[2023-05-08 07:34] VITALS: BP 147/71
[2023-05-08 07:51] LABS: Glucose - Point of Care 125 mg/dl (70-99)
[2023-05-08] MEDS: NOVOLOG FLEXPEN-LOW RESISTANCE SC (08:20)
[2023-05-08] MEDS: MIRALAX 17 GRAMS PO (08:24)
[2023-05-08] MEDS: COLACE 100 MG PO (08:25)
[2023-05-08] MEDS: TYLENOL 650 MG PO ×2 (08:25→12:46)
[2023-05-08] MEDS: PROTONIX 40 MG PO (08:25)
[2023-05-08 09:36] LABS: Hematocrit 38.9 % (39.0-52.0); Hemoglobin 13.5 g/dL (13.0-18.0); Mean Corp Hgb Conc. 34.7 g/dL (33.0-37.0); Mean Corpuscular Hgb 30.2 pg (27.0-31.0); Mean Platelet Volume 10.2 fL (7.4-10.4); Platelet Count 307 10^3/uL (130-400); Red Blood Cell Count 4.47 10^6/uL (4.70-6.10); Red Cell Dist. Width 12.8 % (11.5-14.5); White Blood Cell Count 11.6 10^3/uL (4.8-10.8)
[2023-05-08 10:39] LABS: ALT (SGPT) 101 U/L (0-50); AST (SGOT) 52 U/L (17-59); Albumin 3.3 g/dl (3.5-5.0); Alkaline Phosphatase 114 U/L (38-126); Blood Urea Nitrogen 10 mg/dl (9-20); Carbon Dioxide 24 mmol/L (22-30); Chloride 102 mmol/L (98-107); Estimated Creatinine Clearance 82 ml/min; Glucose 120 mg/dl (70-99); Potassium 3.7 mmol/L (3.5-5.1); Sodium 133 mmol/L (135-145); Total Bilirubin 0.9 mg/dl (0.2-1.3); Total Protein 5.8 g/dl (6.3-8.2); eGFR > 60.00
[2023-05-08 11:45] VITALS: BP 143/93; BP 91/55; BP 92/53; PULSE 75
[2023-05-08 12:00] VITALS: BP 143/69; BP 91/55; PULSE 76
--- NOTE | 2023-05-08 12:24 | W.PN.HOSP.TC ---
Addendum entered and electronically signed by Taz Malhotra MD 05/08/23 14:56:
Total time spent on d/c = 33 min. This included today's physical exam, progress note, review of laboratory and diagnostic data, preparation of discharge documents and prescriptions, and discussions about the pt's hospital course and discharge plan
with the patient and other medical psychotherapist involved in the patient's care.
Original Note:
Today's Communication/Plan
-
d/c
Assessment / Plan
Assessment / Plan
Gen: NAD, Awake and alert, NCAT
Eyes: EOMI, PERRLA, no scleral icterus.
Neck: supple.
CV: remains RRR, +S1/S2, no m/r/g.
Resp: remains CTAB, no rales, wheezes, or rhonchi.
Abd: +BS, soft, RUQ TTP, ND
Skin: No rashes.
Neuro: CN 2-12 intact, non-focal.
Psych: Normal mood and affect.
MRI abd:
1. No MRCP evidence for choledocholithiasis.
2. Mild prominence of the extrahepatic bile ducts and main pancreatic duct without evidence for an obstructive process/mass.
3. Cholelithiasis/gallbladder sludge, gallbladder wall thickening, and right upper quadrant pericholecystic fluid/inflammation with an imaging appearance that is most suspicious for acute cholecystitis.
HIDA:
1. No filling of the gallbladder at 60 minutes, nor following intravenous morphine administration. Findings suggestive of acute cholecystitis in the correct clinical setting.
2. No evidence of complete common bile duct obstruction.
Abdominal Pain and sepsis due to acute on chronic cholecystitis:
-s/p Lap alistair on 05/06/23 (after Plavix washout), intraoperative cholangiogram without choledocholithiasis
-GI/surgery following
-Currently on Zosyn as per surgery. Switch to Augmentin for 3 further days.
Other problems:
Hyponatremia, mild
Hypokalemia, resolved
Dementia, likely Alzheimer's type, with behavioral disturbances and sundowning
BPH: cont Flomax
CAD s/p CABG and stents: resume plavix 05/09/23
Essential Hypertension: cont Norvasc
DM2: a1c 6.7%, SSI/accuchecks
GERD: cont PPI
FULL/Lovenox
Medically stable for discharge. Case management aware.
Anticipated Discharge: Today
Subjective/Interval History
-
Date of Service: May 08, 2023
No new complaints.
Objective Data
-
Labs:
Laboratory Results
05/08/23
07:29
WBC 11.6 H
Hgb 13.5
Hct 38.9 L
Plt Count 307
Sodium 133 L
Potassium 3.7
Chloride 102
Carbon Dioxide 24
BUN 10
Creatinine 0.6 L
Glucose 120 H
Calcium 8.0 L
Total Bilirubin 0.9
AST 52
ALT 101 H
Alkaline Phosphatase 114
Vital Signs:
Vital Signs
Temp Pulse Resp BP Pulse Ox
97.6 F 74 16 147/71 94
05/08/23 07:34 05/08/23 07:34 05/08/23 07:34 05/08/23 07:34 05/08/23 07:34
I&O
05/07/23 05/08/23 05/09/23
06:59 06:59 06:59
Intake Total 880 / 880 800 / 800 70 / 70
Output Total 290 / 290 70 / 70
Balance 590 / 590 730 / 730 70 / 70
[2023-05-08] MEDS: NOVOLOG FLEXPEN-LOW RESISTANCE 1 UNITS SC (12:45)
[2023-05-08] MEDS: AUGMENTIN 875 MG/125 MG 1 TABLET PO (12:46)
--- NOTE | 2023-05-08 12:49 | CM ---
Addendum entered by Weiju 05/08/23 16:21:
Transport time is [id number]
Facility and family made aware
Addendum entered by Weiju 05/08/23 15:18:
Spoke with [facility] at [facility] - can accept pt
Dr Malhotra made aware
Spoke with pts at bedside - she is aware
Discussed IMM with pts
Plan - transfer to [facility]
Report - [phone]
Fax - [phone]
Addendum entered by Weiju 05/08/23 13:58:
[facility] - no male beds today
[facility] - unable to accept
Waiting to hear back from [facility] at [facility]
Family aware - spoke with pts at bedside
Original Note:
Pt medically ready per Dr Malhotra
Accepted at [facility] - LM with [facility] via TT and phone
Called [facility] - spoke with Jeni - will look at referral in Care Port and return call
[facility] - Left message with Rosanna to review referral in Care Port and return call
Plan - snf - tbd
[2023-05-08 12:51] LABS: Glucose - Point of Care 167 mg/dl (70-99)
[2023-05-08 12:55] VITALS: BP 97/56
--- NOTE | 2023-05-08 14:59 | W.PN.UPDATE ---
Update Note
Progress Note Update
GS notified of imminent DC to SNF. Drain output minimal. Pt seen and evaluated at bedside,. A few cc of non-bilious ss fluid in the bulb. Drain removed without issues. OK for DC.
--- NOTE | 2023-05-08 15:27 | W.DCSUMMARY ---
Discharge Summary
Discharge Data
Date of Admission: 04/30/23
Date of Discharge: 05/08/23
-
Pending Results: No
Hospital Course
Primary diagnoses:
Sepsis due to acute on chronic cholecystitis s/p laparoscopic cholecystectomy on 05/06/23
Secondary diagnoses:
Hyponatremia
Hypokalemia
Dementia, likely Alzheimer's type, with behavioral disturbances and sundowning
Benign prostatic hypertrophy
Coronary disease s/p coronary artery bypass graft and stents
Essential Hypertension
Type 2 diabetes mellitus
Gastroesophageal reflux disease
Consultants:
General surgery
Imaging:
CT A/P: No findings to suggest obstructive uropathy bilaterally. Approximate 5 cm simple right renal cyst again seen. Gallbladder is slightly prominent in caliber containing stones, cannot exclude some gallbladder wall thickening. Some thickening of
the wall of the duodenum adjacent to the gallbladder cannot be excluded limited without oral contrast opacification. As there is some mild thickening of the right anterior perirenal fascia new in the interval since prior study, this may be secondary
to an inflammatory/infectious process of the gallbladder or duodenum.
MRI abd:
1. No MRCP evidence for choledocholithiasis.
2. Mild prominence of the extrahepatic bile ducts and main pancreatic duct without evidence for an obstructive process/mass.
3. Cholelithiasis/gallbladder sludge, gallbladder wall thickening, and right upper quadrant pericholecystic fluid/inflammation with an imaging appearance that is most suspicious for acute cholecystitis.
HIDA:
1. No filling of the gallbladder at 60 minutes, nor following intravenous morphine administration. Findings suggestive of acute cholecystitis in the correct clinical setting.
2. No evidence of complete common bile duct obstruction.
Hospital course: 82-year-old male who presented with chief complaints of change in mental status and abdominal pain as outlined in the H&P done on admission. CT scan of the abdomen pelvis above and notable for prominent gallbladder with possible
gallbladder wall thickening. LFTs were elevated. The patient was placed on antibiotics. He was seen in consultation by general surgery. Patient had further imaging above. MRI of the abdomen was without choledocholithiasis and was suggestive of
acute cholecystitis. HIDA scan above also suggestive of acute cholecystitis. Patient was on Plavix which was held and allowed to washout. He underwent laparoscopic cholecystectomy on May 06, 2023. Intraoperative cholangiogram was without
choledocholithiasis. Patient tolerated the procedure well. He was transitioned to Augmentin for 3 further days at the time of discharge.
Discharge Plan
-
Patient Disposition: Correction/SNF
Discharge Diagnosis/Procedures: Sepsis due to acute on chronic cholecystitis s/p laparoscopic cholecystectomy on 05/06/23
Condition: Good
Diet: No restrictions
Activity: As tolerated
Driving Restrictions: No driving
Activity Restrictions/Additional Instructions:
Instructions following Laparoscopic cholecystectomy
Please call [phone] if you have any questions or concerns after your surgery.
Wound Care:
Your incisions are covered with skin glue which will come off on it�s own in 5-10 days.
It is ok to shower the day after your surgery. Do not scrub the incisions, let soap and water wash over them and pat dry.
� Bruising around your incisions is normal.
� Using ice packs will help minimize this swelling.
� No swimming or soaking incisions for 1 week.
� Your stitches will dissolve and do not need to be removed.
Urinary retention:
If you are unable to urinate 6-8 hours after your surgery, please call [phone] to discuss further management.
Activity:
No heavy lifting more than 15 pounds for the next 3 weeks, then you may gradually lift heavier objects as tolerated by discomfort. Otherwise activity as tolerated by your comfort level.
Pain Management:
Use Tylenol, ibuprofen and ice packs to treat your pain.
� You may take 650 milligrams of Tylenol (Max 3 grams per day) every 6 hours, and 600 mg of ibuprofen also every 6 hours. (you can alternate them every 3 hours)
� You may use an ice pack to your incision as needed.
� If you still have pain not controlled by these measures, take your prescription pain medication as prescribed.
Medications:
You may resume your home medications.
Bowel Medications:
Prescription pain medication can make you constipated. If you take this medication, also take colace 100 mg twice daily (this is over the counter). If this is not sufficient, you may take Miralax (polyethylene glycol) to help move your bowels.
Diet:
After your procedure, there are no dietary restrictions. You may notice loose stools for up to 4 weeks after surgery with fatty meals, if this is the case you may have to adjust your diet as needed.
Driving restrictions:
No driving if you are taking prescription pain medication or if you think your normal reaction time and attentiveness has been slowed by your surgery.
Things to Look out for:
Worsening Abdominal pain, redness or drainage from incision
Call Doctor for:
Please call if you notice worsening redness or drainage from incision(s) lasting longer than 5 days after your surgery, any foul-smelling drainage from the incision, pain not controlled by pain medications, persistent nausea and vomiting, or for any
fevers greater than 101.3 F. The number for questions/concerns is [phone]
Follow-up:
Follow-up appointment will be scheduled with your surgeon in 3-4 weeks. Please call prior to your appointment if you have any questions or concerns. [phone]
Referrals:
Rambo Brian MD [Active] - in one week (LALO removal)
Prescriptions:
New
acetaminophen 325 mg Tablet
650 mg PO Q4HPRN PRN (Reason: mild pain/ fever>100.5F) Qty: 0 0RF
amoxicillin-pot clavulanate 875-125 mg Tablet
1 tab PO Q12 Qty: 5 0RF
polyethylene glycol 3350 [HealthyLax] 17 gram Powder In Packet
17 g PO DAILY Qty: 0 0RF
docusate sodium 100 mg Capsule
100 mg PO BID Qty: 0 0RF
Continued
clopidogrel 75 mg tablet
75 mg PO QPM
amlodipine 5 mg tablet
5 mg PO QPM
tamsulosin 0.4 mg capsule
0.4 mg PO QPM
lansoprazole 30 mg capsule,delayed release(DR/EC)
30 mg PO QPM
nitroglycerin 0.4 mg tablet, sublingual
0.4 mg sublingual [id number] PRN (Reason: chest pain)
azelastine 137 mcg (0.1 %) aerosol,spray
1 spray INTRANASAL BID PRN (Reason: congestion/allergies)
Januvia 100 mg tablet
100 mg PO QPM
Discontinued
cyclobenzaprine 10 mg tablet
10 mg PO TID PRN (Reason: muscle spasm) Qty: 20 0RF
acetaminophen 500 mg Tablet
1,000 mg PO Q6H PRN (Reason: mild pain/fever)
celecoxib 400 mg capsule
400 mg PO QPM
Discharge Orders:
Discharge Patient (As Directed); Ordered 05/08/23
Ordered By: Taz Malhotra
[2023-05-08 15:33] VITALS: BP 131/65
[2023-05-08] MEDS: NORVASC 5 MG PO (16:38)
[2023-05-08] MEDS: FLOMAX 0.400000000000000022 MG PO (16:38)
== END 2023-05-08 17:13 | DRG 854 ==
LOC: 3 WEST ACU 20:08
PROVIDERS: Physician Assistant Medical; Registered Nurse; Surgery; ADMITTING PHYSICIAN Internal Medicine; ATTENDING PHYSICIAN Internal Medicine; CONSULT PHYSICIAN Internal Medicine Gastroenterology; CONSULT PHYSICIAN Surgery; EMERGENCY PHYSICIAN Emergency Medicine
PROC: BF141ZZ Fluoroscopy of Gallbladder, Bile Ducts and Pancreatic Ducts using Low Osmolar Contrast (ICD-10-PCS; 2023-05-06)
PROC: 0FT44ZZ Resection of Gallbladder, Percutaneous Endoscopic Approach (ICD-10-PCS; 2023-05-06)
DX: A41.9 Sepsis, unspecified organism (principal); E87.1 Hypo-osmolality and hyponatremia; K80.00 Calculus of gallbladder with acute cholecystitis without obstruction; F05 Delirium due to known physiological condition; F02.80 Dementia in other diseases classified elsewhere, unspecified severity, without behavioral disturbance, psychotic disturbance, mood disturbance, and anxiety; I25.10 Atherosclerotic heart disease of native coronary artery without angina pectoris; Z95.1 Presence of aortocoronary bypass graft; I10 Essential (primary) hypertension; E11.9 Type 2 diabetes mellitus without complications; N40.0 Benign prostatic hyperplasia without lower urinary tract symptoms; K21.9 Gastro-esophageal reflux disease without esophagitis; K59.09 Other constipation; K82.A1 Gangrene of gallbladder in cholecystitis; E87.6 Hypokalemia; G30.9 Alzheimer's disease, unspecified
CPT/HCPCS: 88304; 70450; 74176; 74183; 74300; 76000; 78226; 80048; 80053; 80076; 81003; 81015; 82962; 83036; 83690; 83735; 83930; 83935; 84132; 84300; 84443; 84484; 85025; 85027; 86850; 86900; 86901; 87040; 93005; 94640; 97116; 97162; 97166; 97530; 97535; 99285; A4300; A9537; A9575; J1610

== ENCOUNTER 2023-05-12 11:46 | Emergency (ER) | payer MEDICARE, OTHER, SELFPAY ==
[2023-05-12] VITALS (12 sets, daily range): BP systolic 91–158; BP diastolic 59–92; PULSE 72–80; BMI 22.8
--- NOTE | 2023-05-12 11:48 | ED.GENMED ---
History of Present Illness
<Liz Shay PA-C - Last Filed: 05/12/23 15:36>
General
Chief Complaint: Weakness
Source: patient
Exam Limitations: none
Time Seen by Provider: 05/12/23 11:47
Nursing documentation reviewed up to this point in time: agreed with
History of Present Illness
History of Present Illness:
82-year-old male with a past medical history of hypertension, hyperlipidemia, CAD, NIDDM, presenting emergency department today from [facility] for weakness since last night. Patient initially unsure why he was brought to the emergency department,
and then eventually recalls that he has been feeling weak. EMS reports that Olga casanova had been doing vitals, and had noticed that his blood pressure was 70/40 this morning. Upon EMS arrival, patient blood pressure was 140/85. Currently, patient
describes his weakness as feeling extra fatigued, especially when walking. Patient denies any fevers or chills, chest pain, shortness of breath, abdominal pain, headache, dizziness, motor weakness. It is unclear of his baseline mental status.
Patient was recently discharged from the hospital on 05/08/2023 for altered mental status, and had gallbladder removed. Patient was sent home on on Augmentin.
12:26 pm--family now present in room who reports patient has a history of dementia. reports that patient normally lives at home, but due to recent surgery, he has been in [facility] rehab. With reports that he has not been complaining of
anything specifically but has just been more fatigued and appears more weak. He has been sleeping more than usual. Had COVID test today which was (-).
Past History
<Liz Shay PA-C - Last Filed: 05/12/23 15:36>
Past History
ED Past Medical History: CAD, GERD, NIDDM and Other (Cellulitis)
ED Past Surgical History: Appendectomy and Cardiac
Social History
Tobacco: Non-smoker
Review of Systems
<Liz Shay PA-C - Last Filed: 05/12/23 15:36>
Review of Systems
All Other Systems: ROS reviewed and negative except as documented in HPI and ROS
Phy Exam
<Liz Shay PA-C - Last Filed: 05/12/23 15:36>
Physical Exam
Physical Exam:
General: Patient is well-appearing in no acute distress
Skin: There are 3 surgical sites, 1 at the umbilicus, 1 in the epigastric region, and 1 in the right subcostal region. They are ecchymotic and intact, with no active purulent drainage, no dehiscence.
Head: normocephalic, atraumatic
Cardiac: Regular rate and rhythm, no murmurs
Pulm: Normal respiratory effort, no wheezes/rales/rhonchi
Abdomen: Surgical sites noted, see skin exam. No abdominal tenderness to palpation, no palpable masses, no distension.
Neuro: Patient oriented to person and place, but not time. CN II-XII intact.
Course
<Liz Shay PA-C - Last Filed: 05/12/23 15:36>
Orders/Labs/Results
Orders:
Orders
05/12/23 12:03
Basic Metabolic Panel Urgent
Complete Blood Count/With Diff Urgent
05/12/23 12:34
Influenza A+B Rapid Molecular Urgent
SHIRIN Source: Nasal Swab
Specimen Description:
05/12/23 12:43
Orthostatic VS- Treatment ONCE
05/12/23 13:18
Urinalysis Reflex To Culture Urgent
Date Specimen was Collected: 05/12/23
Time Specimen was Collected: 13:18
05/12/23 13:32
0.9% Sodium Chloride 250 ml [Nss] 250 ml IV BOLUS
05/12/23 13:36
0.9% Sodium Chloride 500 ml [Nss] 500 ml IV BOLUS
05/12/23 14:36
0.9% Sodium Chloride 1000 ml [Nss] 1,000 ml IV BOLUS
Abnormal Lab Results
05/12/23
12:03
RBC 4.48 L 10^6/uL
(4.70-6.10)
Hct 38.6 L %
(39.0-52.0)
Abs Immat Gran (auto) 0.1 H 10^3/uL
(0-0.05)
Absolute Neuts (auto) 8.5 H 10^3/uL
(1.4-6.5)
Absolute Lymphs (auto) 0.8 L 10^3/uL
(1.2-3.4)
Absolute Monos (auto) 1.0 H 10^3/uL
(0.1-0.6)
Immature Gran % 0.7 H %
(0-0.5)
Neutrophils % 79.9 H %
(42.2-75.2)
Lymphocytes % 7.2 L %
(20.5-51.1)
Monocytes % 9.5 H %
(1.7-9.3)
Sodium 133 L mmol/L
(135-145)
Glucose 105 H mg/dl
(70-99)
05/12/23 12:03
05/12/23 13:28
Vital Signs
Initial and Last Documented VS:
Initial Vital Signs
Temp Pulse Resp BP Pulse Ox
98.5 F 74 18 140/85 98
05/12/23 11:47 05/12/23 11:47 05/12/23 11:47 05/12/23 11:47 05/12/23 11:47
Last Documented Vital Signs
Temp Pulse Resp BP Pulse Ox
98.5 F 70 21 146/71 98
05/12/23 11:47 05/12/23 14:00 05/12/23 14:00 05/12/23 14:00 05/12/23 14:00
<Mehdi Camacho, DO - Last Filed: 05/12/23 14:40>
Orders/Labs/Results
Orders:
Orders
05/12/23 12:03
Basic Metabolic Panel Urgent
Complete Blood Count/With Diff Urgent
05/12/23 12:34
Influenza A+B Rapid Molecular Urgent
SHIRIN Source: Nasal Swab
Specimen Description:
05/12/23 12:43
Orthostatic VS- Treatment ONCE
05/12/23 13:18
Urinalysis Reflex To Culture Urgent
Date Specimen was Collected: 05/12/23
Time Specimen was Collected: 13:18
05/12/23 13:32
0.9% Sodium Chloride 250 ml [Nss] 250 ml IV BOLUS
05/12/23 13:36
0.9% Sodium Chloride 500 ml [Nss] 500 ml IV BOLUS
05/12/23 14:36
0.9% Sodium Chloride 1000 ml [Nss] 1,000 ml IV BOLUS
Abnormal Lab Results
05/12/23
12:03
RBC 4.48 L 10^6/uL
(4.70-6.10)
Hct 38.6 L %
(39.0-52.0)
Abs Immat Gran (auto) 0.1 H 10^3/uL
(0-0.05)
Absolute Neuts (auto) 8.5 H 10^3/uL
(1.4-6.5)
Absolute Lymphs (auto) 0.8 L 10^3/uL
(1.2-3.4)
Absolute Monos (auto) 1.0 H 10^3/uL
(0.1-0.6)
Immature Gran % 0.7 H %
(0-0.5)
Neutrophils % 79.9 H %
(42.2-75.2)
Lymphocytes % 7.2 L %
(20.5-51.1)
Monocytes % 9.5 H %
(1.7-9.3)
Sodium 133 L mmol/L
(135-145)
Glucose 105 H mg/dl
(70-99)
05/12/23 12:03
05/12/23 13:28
Vital Signs
Initial and Last Documented VS:
Initial Vital Signs
Temp Pulse Resp BP Pulse Ox
98.5 F 74 18 140/85 98
05/12/23 11:47 05/12/23 11:47 05/12/23 11:47 05/12/23 11:47 05/12/23 11:47
Last Documented Vital Signs
Temp Pulse Resp BP Pulse Ox
98.5 F 70 21 146/71 98
05/12/23 11:47 05/12/23 14:00 05/12/23 14:00 05/12/23 14:00 05/12/23 14:00
<Liz Shay PA-C - Last Filed: 05/12/23 15:36>
MDM/Problems Addressed
Differential Diagnosis Includes:
ddx include deconditioning, electrolyte derangement, hypoglycemia, hyperglycemia, cholangitis, UTI, pneumonia
MDM/Problems Addressed:
weakness
Chronic conditions affecting care: DM, HTN and CAD
Acute Exacerbation and/or Progression of Chronic Illness: DM, HTN and CAD
<Liz Shay PA-C - Last Filed: 05/12/23 15:36>
*Pulse Oximetry
Patient hypoxic: no
*Putty And [employer] Worker Interpretation
Rate: normal
Interpretation: abnormal
Heart Rate: 65
Rhythm: sinus arrhythmia
*Critical Care Note
Total Time (30-74mins, 75-104mins- exclusive of procedures): Not Applicable
Data Reviewed
Review of Other/Old Records Reveals: Records (reviewed ER physician documentation from 04/30/2023, 04/24/23, 04/18/2023) and Discharge Summary (reviewed discharge summary from 05/08/2023)
Source: patient
<Liz Shay PA-C - Last Filed: 05/12/23 15:36>
Patient Management
Escalation/DeEscalation of care consider admission/obs:
82 y/o male hx of NIDDM, HTN, CAD, presenting to the ER today with weakness and fatigue since last night. Patient presents from [facility]. Patient normally lives at home but currently at [facility] for rehab because he was discharged from
[facility] on the 05/08/2023 for gangrenous cholecystitis. Family reports he has dementia at baseline. Patient himself denies any chest pain refused further chills, abdominal pain, shortness of breath, new upper respiratory symptoms.
reports that patient has been sleeping more than usual. On physical exam, he is well-appearing, only oriented to person and place but not time. He has 3 abdominal surgical incisions are dry and intact and do not appear to be acutely infected. He
has no abdominal tenderness. His CBC and CMP are unremarkable.
Nurse from [facility] reports that he had dramatic orthostatic HTN which did not resolve with oral fluid intake, patient was sent to ER for concerns of sepsis/bacteremia. Here, patient is afebrile. In ED, patient's blood pressure dropped to 91/59 from
146/71 with standing. Patient symptomatic at the time. I suspect patient's current symptoms are a result of deconditioning as well as orthostatic hypotension.
<Liz Shay PA-C - Last Filed: 05/12/23 15:36>
Update Note
Update Note:
12:45 pm-- Spoke to patient's nurse at [facility], nurse reports sitting, his blood pressure was systolically sitting around 90s and standing, it dropped down to 70s/40s, at which point they called EMS. Patient was very symptomatic with
standing. Patient was given oral fluids which did not seem to help. Nurse reports that in PT this morning, patient attempted to ride bike and his blood pressure subsequently dropped again.
2:23 pm --Patient reports feeling well, patient's blood pressure is normalized. I suspect his current symptoms are a combination of deconditioning and orthostatic hypotension. Patient stable for discharge and return to [facility].
ED Attending Note
<Liz Shay PA-C - Last Filed: 05/12/23 15:36>
-
Portions of this chart may have been created with voice recognition software.� Occasional wrong word or��sound alike� substitutions may have occurred due to the inherent limitations of voice recognition software.
<Mehdi Camacho DO - Last Filed: 05/12/23 14:40>
ED Attending Note
Patient seen and examined by attending physician: Yes
I performed the substantive portion of visit, reviewed & personally made and approve the management plan that is documented in note by myself or TAMIKO.: Yes
ED Attending Note:
I have seen and evaluated the patient with a [id number] encounter. I have spoken to the advance practicer provider and involved in the medical history, the physical exam, medical decision making.
Evaluation and management service: agree unless noted differently below.
Results interpretation: agree unless noted differently below.
Focused HPI: 82-year-old male presenting with generalized weakness and fatigue. Symptoms are getting worse when he stands up quickly
Physical exam: Mildly dehydrated. Abdomen soft and nontender
Medical Decision Making: Patient is exhibiting signs of orthostasis. Patient feeling better after IV fluids. Will ultimately discharge
Discharge Plan
Departure
Patient Disposition: Acute Rehab Facility
Date of Disposition: 05/12/23
Time of Disposition: 15:30
Patient with high blood pressure during this ER visit?: Yes
Condition: Good
Discharge Problem:
Fatigue, Orthostatic hypotension
Instructions: Orthostatic Hypotension (DC), Generalized Weakness (DC), BLOOD PRESSURE
Prescriptions:
No Action
clopidogrel 75 mg tablet
75 mg PO QPM
amlodipine 5 mg tablet
5 mg PO QPM
tamsulosin 0.4 mg capsule
0.4 mg PO QPM
lansoprazole 30 mg capsule,delayed release(DR/EC)
30 mg PO QPM
nitroglycerin 0.4 mg tablet, sublingual
0.4 mg sublingual [id number] PRN (Reason: chest pain)
azelastine 137 mcg (0.1 %) aerosol,spray
1 spray INTRANASAL BID PRN (Reason: congestion/allergies)
Januvia 100 mg tablet
100 mg PO QPM
acetaminophen 325 mg Tablet
650 mg PO Q4HPRN PRN (Reason: mild pain/ fever>100.5F) Qty: 0 0RF
polyethylene glycol 3350 [HealthyLax] 17 gram Powder In Packet
17 g PO DAILY Qty: 0 0RF
docusate sodium 100 mg Capsule
100 mg PO BID Qty: 0 0RF
magnesium hydroxide [Milk of Magnesia] 400 mg/5 mL Suspension
30 ml PO HS PRN (Reason: if no bm on day 4)
bisacodyl [Dulcolax (bisacodyl)] 10 mg Suppository
10 mg OH DAILY PRN (Reason: constipation)
Fleet Enema 19-7 gram/118 mL Enema
118 ml OH DAILY PRN (Reason: constipation)
Referrals:
Rui Iqbal MD [Family Provider] -
Activity Restrictions/Additional Instructions:
Please follow up with your primary care provider.
At [facility], we recommend that patient receives IV fluids as needed for symptomatic orthostatic hypotension.
Please return to the emergency department should patient experience fainting spells, chest pain, shortness of breath, persistent dizziness, difficulty ambulating, back pain, or other concerning signs or symptoms.
Interventions
Interventions:
*Risk Screen - Suicide Last Done: 05/12/23 11:47
*General Assessment Last Done: 05/12/23 11:47
*Neglect/Abuse Screening Last Done: 05/12/23 11:47
ED- Cardiac Assessment Last Done: 05/12/23 13:49
ED- Neurological Assessment Last Done: 05/12/23 13:49
ED- Pulmonary Assessment Last Done: 05/12/23 13:49
[2023-05-12 12:14] LABS: % Basophils 0.3 % (0-2); % Eosinophils 2.4 % (0-6); % Immature Granulocytes 0.7 % (0-0.5); % Lymphocytes 7.2 % (20.5-51.1); % Monocytes 9.5 % (1.7-9.3); % Neutrophils 79.9 % (42.2-75.2); Absolute Eosinophils 0.3 10^3/uL (0-0.7); Absolute Immature Granulocytes 0.1 10^3/uL (0-0.05); Absolute Lymphocytes 0.8 10^3/uL (1.2-3.4); Absolute Neutrophils 8.5 10^3/uL (1.4-6.5); Hematocrit 38.6 % (39.0-52.0); Hemoglobin 13.5 g/dL (13.0-18.0); Mean Corpuscular Hgb 30.1 pg (27.0-31.0); Mean Corpuscular Volume 86.2 fL (80.0-94.0); Mean Platelet Volume 9.5 fL (7.4-10.4); Nucleated Red Blood Cells % 0 % (-); Platelet Count 362 10^3/uL (130-400); Red Blood Cell Count 4.48 10^6/uL (4.70-6.10); Red Cell Dist. Width 13.1 % (11.5-14.5); White Blood Cell Count 10.6 10^3/uL (4.8-10.8)
[2023-05-12 12:32] LABS: Blood Urea Nitrogen 18 mg/dl (9-20); Calcium 8.9 mg/dl (8.4-10.2); Carbon Dioxide 25 mmol/L (22-30); Chloride 104 mmol/L (98-107); Glucose 105 mg/dl (70-99); Sodium 133 mmol/L (135-145); eGFR > 60.00
[2023-05-12 13:36] LABS: Urine Albumin Negative (Neg - Trace); Urine Bilirubin Negative (Negative); Urine Character Clear (Clear); Urine Color Yellow; Urine Glucose Negative (Negative); Urine Ketone Negative (Negative); Urine Leukocyte Negative (Negative); Urine Nitrite Negative (Negative); Urine Occult Blood Negative (Negative); Urine Specific Gravity 1.015 (<1.030); Urine Urobilinogen Negative (Neg - 1+); Urine pH 6.5 (5.0-9.0)
[2023-05-12] MEDS: NSS 500 IV (13:37)
[2023-05-12] MEDS: NSS 1000 IV (14:40)
== END 2023-05-12 18:18 | disposition home or self-care (01) ==
LOC: EMR 11:46
PROVIDERS: Physician Assistant; EMERGENCY PHYSICIAN Student in an Organized Health Care Education/Training Program; FAMILY PHYSICIAN Family Medicine
DX: R53.83 Other fatigue (principal); I95.1 Orthostatic hypotension; I25.10 Atherosclerotic heart disease of native coronary artery without angina pectoris; I10 Essential (primary) hypertension; E11.9 Type 2 diabetes mellitus without complications
CPT/HCPCS: 99284; 96360; 96361; 80048; 81003; 85025; 87502

== ENCOUNTER → 2023-05-15 11:16 | Outpatient (REF) | payer OTHER, MEDICARE, SELFPAY ==
[2023-05-15 12:01] LABS: % Basophils 0.7 % (0-2); % Eosinophils 4.1 % (0-6); % Immature Granulocytes 1.2 % (0-0.5); % Lymphocytes 8.6 % (20.5-51.1); % Neutrophils 70.4 % (42.2-75.2); Absolute Basophils 0.1 10^3/uL (0-0.2); Absolute Eosinophils 0.3 10^3/uL (0-0.7); Absolute Immature Granulocytes 0.1 10^3/uL (0-0.05); Absolute Lymphocytes 0.7 10^3/uL (1.2-3.4); Absolute Monocytes 1.2 10^3/uL (0.1-0.6); Absolute Neutrophils 5.8 10^3/uL (1.4-6.5); Hematocrit 38.9 % (39.0-52.0); Hemoglobin 13.4 g/dL (13.0-18.0); Mean Corp Hgb Conc. 34.4 g/dL (33.0-37.0); Mean Corpuscular Hgb 30.4 pg (27.0-31.0); Mean Corpuscular Volume 88.2 fL (80.0-94.0); Mean Platelet Volume 10.5 fL (7.4-10.4); Nucleated Red Blood Cells % 0 % (-); Platelet Count 373 10^3/uL (130-400); Red Blood Cell Count 4.41 10^6/uL (4.70-6.10); Red Cell Dist. Width 13.1 % (11.5-14.5); White Blood Cell Count 8.3 10^3/uL (4.8-10.8)
[2023-05-15 12:19] LABS: ALT (SGPT) 44 U/L (0-50); AST (SGOT) 26 U/L (17-59); Albumin 3.7 g/dl (3.5-5.0); Alkaline Phosphatase 76 U/L (38-126); Blood Urea Nitrogen 17 mg/dl (9-20); Calcium 8.9 mg/dl (8.4-10.2); Carbon Dioxide 26 mmol/L (22-30); Chloride 99 mmol/L (98-107); Glucose 122 mg/dl (70-99); Potassium 5.2 mmol/L (3.5-5.1); Sodium 134 mmol/L (135-145); Total Bilirubin 0.5 mg/dl (0.2-1.3); Total Protein 6.3 g/dl (6.3-8.2); eGFR > 60.00
== END ==
LOC: OLABP 11:16
PROVIDERS: ATTENDING PHYSICIAN Student in an Organized Health Care Education/Training Program
DX: A41.9 Sepsis, unspecified organism (principal); R10.9 Unspecified abdominal pain; M62.81 Muscle weakness (generalized); I25.10 Atherosclerotic heart disease of native coronary artery without angina pectoris; I11.9 Hypertensive heart disease without heart failure; E11.9 Type 2 diabetes mellitus without complications; E87.1 Hypo-osmolality and hyponatremia; N40.0 Benign prostatic hyperplasia without lower urinary tract symptoms
CPT/HCPCS: 36415; 80053; 85025

== ENCOUNTER → 2023-05-23 11:20 | Outpatient (REF) | payer OTHER, MEDICARE, SELFPAY ==
[2023-05-23 12:16] LABS: Blood Urea Nitrogen 15 mg/dl (9-20); Calcium 8.4 mg/dl (8.4-10.2); Carbon Dioxide 24 mmol/L (22-30); Chloride 103 mmol/L (98-107); Glucose 121 mg/dl (70-99); Potassium 4.1 mmol/L (3.5-5.1); Sodium 132 mmol/L (135-145); eGFR > 60.00
== END ==
LOC: OLABP 11:20
PROVIDERS: ATTENDING PHYSICIAN Student in an Organized Health Care Education/Training Program
DX: E11.9 Type 2 diabetes mellitus without complications (principal); E87.1 Hypo-osmolality and hyponatremia; N40.0 Benign prostatic hyperplasia without lower urinary tract symptoms; A41.9 Sepsis, unspecified organism; R10.9 Unspecified abdominal pain; I25.10 Atherosclerotic heart disease of native coronary artery without angina pectoris; I11.9 Hypertensive heart disease without heart failure
CPT/HCPCS: 36415; 80048

== ENCOUNTER 2023-05-30 16:54 | Inpatient (IN) | payer MEDICARE, OTHER, SELFPAY ==
[2023-05-28] VITALS (13 sets, daily range): BP systolic 95–160; BP diastolic 51–99; PULSE 70–96
--- NOTE | 2023-05-28 11:07 | ED.MUSCINJ ---
HPI-Injury
General
Chief Complaint: Fall
Source: patient
Exam Limitations: none
Time Seen by Provider: 05/28/23 10:54
Travel History
Have you had any contact with someone who has COVID-19?: No
Do you have any symptoms of coronavirus? Fever > 100 degrees, chills, cough, shortness of breath, sore throat, loss of taste or smell, muscle aches, or headache?: No
History of Present Illness-Injury
Initial Injury comments:
82-year-old male on Plav[facility]itness[facility]. He fell and hit his head elbows and knees. No loss of conscious. Patient can provide most of the history. He does seem somewhat confused. He has no complaints to
offer currently.
Past History
Past History
ED Past Medical History: CAD, GERD, NIDDM and Other (Cellulitis)
ED Past Surgical History: Appendectomy and Cardiac
Social History
Tobacco: Non-smoker
Phy Exam
Physical Exam
Physical Exam:
General: Well-appearing male nontoxic no acute respiratory distress
HEENT: NC/AT PERRL, EOMI
Heart: RRR, no murmurs
Lungs: CTA bilaterally
ABd: soft, nontender
Ext: no cyanosis
Skin: abrasion to both lateral knees and both elbows - superficial in nature
Injury Course
Orders/Labs/Results
Orders:
Orders
05/28/23 10:59
Complete Blood Count/With Diff Urgent
Comprehensive Metabolic Panel Urgent
Urinalysis Reflex To Culture Urgent
Date Specimen was Collected: 05/28/23
Time Specimen was Collected: 10:58
Urine Microscopic Reflex Cult Urgent
05/28/23 11:05
CT Head W/o Iv Contrast Urgent
Comment:
Reason For Exam: fall
05/28/23 12:47
Orthostatic VS- Treatment ONCE
05/28/23 13:04
0.9% Sodium Chloride 1000 ml [Nss] 1,000 ml IV BOLUS
05/28/23 14:04
Admit/Transfer Patient As Directed
Co-Sign Provider:
Level of Care: Observation services
Assign to:: Telemetry
Physician / Group: colt rodriguez
Diagnosis: orthostatic hypotension, falls
Reason for Telemetry: Arrhythmia
Date to Stop Telemetry: 05/31/23
Time to Stop Telemetry: 11:00
Reason for Hospitalization: orthostatic hypotension, falls
Code Status As Directed
Resuscitation Status: Do not resuscitate
Reached after discussion with pt or family/Healthcare POA: Yes
Based on pt advanced directive or healthcare POA form: Yes
Decision communicated with: per family at bedside
05/28/23 14:05
DNR Bracelet Application ONCE
05/28/23 14:10
COVID-19 Antigen Urgent
Source: Nasal Swab
05/28/23 14:15
0.9% Sodium Chloride 1000 ml [Nss] 1,000 ml IV 80 mls/hr
05/28/23 Dinner
Regular
At Your Request: Non-Participating
Does patient need a safe tray?: No
05/28/23 16:57
Acetaminophen [Tylenol] 650 mg PO Q4HPRN PRN
Acetaminophen [Tylenol] 650 mg PO Q4HPRN PRN
Bisacodyl [Dulcolax] 10 mg RECTAL DAILY PRN
Magnesium Hydroxide [Milk of Magnesia] 30 ml PO DAILYPRN PRN
Phosphate Enema [Fleet Phosphate Enema-Adult] 135 ml RECTAL DAILY PRN
azelastine 1 spray NASAL BID PRN
05/28/23 16:57
Activity As Directed
Activity Level: With Assistance
Intake/ Output As Directed
Frequency: Per unit guidelines
Vital Signs As Directed
Frequency: Per unit guidelines
Weight As Directed
Frequency: Daily
Ot Eval And Treat Routine
Pt Eval And Treat Routine
Activity Level: With Assistance
DX Deep Vein Thrombosis Video Routine
05/28/23 18:00
Clopidogrel Bisulfate [Plavix] 75 mg PO QPM
Enoxaparin Sodium [Lovenox] 40 mg SC QPM
Pantoprazole [Protonix] 40 mg PO QPM
Sitagliptin Phosphate [Januvia] 100 mg PO QPM
Tamsulosin [Flomax] 0.4 mg PO QPM
05/28/23 20:00
Docusate Sodium [Colace] 100 mg PO BID
05/29/23 07:18
Basic Metabolic Panel IN AM
Complete Blood Count/With Diff IN AM
05/29/23 08:00
Polyethylene Glycol Powder [Miralax] 17 grams PO DAILY
05/30/23 06:00
Basic Metabolic Panel IN AM
Complete Blood Count/With Diff IN AM
05/31/23 06:00
Basic Metabolic Panel IN AM
Complete Blood Count/With Diff IN AM
05/31/23 11:00
DC Protocol for Telemetry ONCE
Abnormal Lab Results
05/28/23
10:59
Absolute Neuts (auto) 7.3 H 10^3/uL
(1.4-6.5)
Absolute Lymphs (auto) 0.6 L 10^3/uL
(1.2-3.4)
Absolute Monos (auto) 0.7 H 10^3/uL
(0.1-0.6)
Neutrophils % 80.7 H %
(42.2-75.2)
Lymphocytes % 6.7 L %
(20.5-51.1)
Sodium 134 L mmol/L
(135-145)
Potassium 5.2 H mmol/L
(3.5-5.1)
Glucose 149 H mg/dl
(70-99)
Ur Occult Blood Reflex Trace A
(Negative)
05/28/23 10:59
05/28/23 10:59
MDM/Problems Addressed
Differential Diagnosis Includes:
1 unwitnessed fall. Head injury. Will evaluate for any fracture or bleeding. CT of the head pending. Patient has no tenderness to the extremities.
*Critical Care Note
Total Time (30-74mins, 75-104mins- exclusive of procedures): Not Applicable
Update Note
Update Note:
CT of the head negative. Labs reviewed without significant finding. Patient tilts significantly here even upon sitting up. He went from systolic of 150s to 95 just sitting up. He was symptomatic upon sitting up. Family in the room states he
keeps falling he is not progressing in rehab because he is too weak to stand. He has been on midodrine twice a day. Will admit for further evaluation
ED Attending Note
-
Portions of this chart may have been created with voice recognition software.� Occasional wrong word or��sound alike� substitutions may have occurred due to the inherent limitations of voice recognition software.
Discharge Plan
Departure
Patient Disposition: Admit
Date of Disposition: 05/28/23
Time of Disposition: 13:04
Admit to: Telemetry
Presentation/result/management discussed w/ accepting MD/DO: Hospitalist
Discharge Problem:
Orthostasis
Interventions
Interventions:
*Risk Screen - Suicide Last Done: 05/28/23 10:50
*General Assessment Last Done: 05/28/23 10:50
*Neglect/Abuse Screening Last Done: 05/28/23 10:50
ED- Fall Risk Assessment Last Done: 05/28/23 10:55
*ED COVID-19 Vaccine History Last Done: 05/28/23 10:50
*Nursing Disposition Last Done: 05/28/23 16:35
ED-Musculoskeletal Assessment Last Done: 05/28/23 10:55
ED- Neurological Assessment Last Done: 05/28/23 10:55
ED-Skin Assessment Last Done: 05/28/23 10:55
Discharge Date and Time
Discharge Date/Time: 05/28/23 16:36
[2023-05-28 11:10] LABS: % Basophils 0.3 % (0-2); % Eosinophils 4.1 % (0-6); % Immature Granulocytes 0.4 % (0-0.5); % Lymphocytes 6.7 % (20.5-51.1); % Monocytes 7.8 % (1.7-9.3); % Neutrophils 80.7 % (42.2-75.2); Absolute Eosinophils 0.4 10^3/uL (0-0.7); Absolute Lymphocytes 0.6 10^3/uL (1.2-3.4); Absolute Monocytes 0.7 10^3/uL (0.1-0.6); Absolute Neutrophils 7.3 10^3/uL (1.4-6.5); Hemoglobin 14.9 g/dL (13.0-18.0); Mean Corp Hgb Conc. 33.9 g/dL (33.0-37.0); Mean Corpuscular Volume 88.7 fL (80.0-94.0); Mean Platelet Volume 9.9 fL (7.4-10.4); Nucleated Red Blood Cells % 0 % (-); Platelet Count 223 10^3/uL (130-400); Red Blood Cell Count 4.96 10^6/uL (4.70-6.10); Red Cell Dist. Width 13.1 % (11.5-14.5); White Blood Cell Count 9.1 10^3/uL (4.8-10.8)
[2023-05-28 11:16] LABS: Urine Albumin Trace (Neg - Trace); Urine Bilirubin Negative (Negative); Urine Character Clear (Clear); Urine Color Yellow; Urine Glucose Negative (Negative); Urine Ketone Negative (Negative); Urine Leukocyte Negative (Negative); Urine Nitrite Negative (Negative); Urine Occult Blood Trace (Negative); Urine Urobilinogen Negative (Neg - 1+)
[2023-05-28 11:29] LABS: ALT (SGPT) 19 U/L (0-50); AST (SGOT) 24 U/L (17-59); Albumin 4.3 g/dl (3.5-5.0); Alkaline Phosphatase 79 U/L (38-126); Blood Urea Nitrogen 16 mg/dl (9-20); Calcium 9.6 mg/dl (8.4-10.2); Carbon Dioxide 26 mmol/L (22-30); Chloride 101 mmol/L (98-107); Glucose 149 mg/dl (70-99); Potassium 5.2 mmol/L (3.5-5.1); Sodium 134 mmol/L (135-145); Total Bilirubin 0.7 mg/dl (0.2-1.3); Total Protein 7.1 g/dl (6.3-8.2); eGFR > 60.00
[2023-05-28 11:35] LABS: Urine Amorphous Seen; Urine Mucus Few; Urine Squamous Cell 0-2 /LPF (Few)
[2023-05-28 11:36] LABS: Urine Red Blood Cell 0-2 /HPF (0-2); Urine White Cell 0-2 /HPF (0-5)
[2023-05-28] MEDS: NSS 1000 IV ×2 (13:22→15:40)
--- NOTE | 2023-05-28 13:41 | HPS.HSE ---
Addendum entered and electronically signed by Diane Gibson MD 05/28/23 15:35:
pt seen and examined independently--agree with [employer] note
GENERAL: well developed, well nourished, male with dementia in no apparent distress
HEENT: NC/AT -- no O2 requirements
HEART: regular rate and rhythm, +S1, +S2
LUNGS : clear to auscultation bilaterally
ABDOM: soft, nontender, nondistended, + bowel sounds
EXT: no cyanosis, clubbing, or edema
NEUROLOGIC: grossly intact--apparent dementia
: condom cath with clear urine
Falls at SNF--likely due to symptomatic Orthostatic hypotension --cont IVF through tomorrow--follow orthostatic VS BID--PT/OT--increase midodrine and allow permissive hypertension--teds--check TSH, random cortisol in AM
status post cholecystitis with lap alistair 05/06/2023--Patient completed course of Zosyn and Augmentin--PT/OT/case management consult for SNF facility
Hyperkalemia/hyponatremia�mild--check cortisol
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
BPH--Bladder scans--Hold Flomax if SBP<110--May continue condom cath
CAD status post CABG and stents--Continue Plavix
DM2--Recent HgbA1c 6.7% May 2023--Accu-Cheks with SSI--Continue Januvia 100 mg every afternoon
GERD--Continue PPI
Constipation history--Continue daily MiraLAX, Colace 100 mg twice daily
DVT prophylaxis--Subcu Lovenox
DNR per family at bedside , son, [id number]
Original Note:
Family Physician
-
Family Physician: Lina Springer DO
Chief Complaint
-
Fall, weakness, orthostatic hypotension
History of Present Illness
82-year-old male from [facility] While in rehab he has been too weak to participate and is having episodes of orthostatic hypotension while on midodrine 5 mg twice daily. His daughter states on 05/23/2023 it was increased to 10 mg twice daily
although he was still having episodes of orthostasis and falls. He has bilateral knee abrasions. He is oriented to name and family members at bedside only. He denies headache, dizziness, blurred vision, chest pain, palpitations, shortness breath,
cough, abdominal pain, nausea, vomiting, diarrhea. He has chronic urinary frequency and a condom cath was placed in the ER.
The patient with recent admission 04/30 - 05/08/2023 for sepsis due to cholecystitis status post laparoscopic cholecystectomy on 05/06/2023 he was sent to rehab.
Other past medical history includes dementia likely Alzheimer's with behavioral disturbance and sundowning, CAD status post CABG and stents, essential HTN, DM2, GERD, hyponatremia, hypokalemia
Medical History
Past Medical History
Past Medical History: Reports Other
Additional Past Medical History:
Orthostatic hypotension
Coronary Artery Disease s/p CABG
Essential Hypertension
Diabetes Mellitus, Type II
Dementia
BPH
GERD
Past Surgical History: Reports Other
Additional Past Surgical History:
05/08/2023 for sepsis due to cholecystitis status post laparoscopic cholecystectomy on 05/06/2023
CABG
Hernia Repair
Appendectomy
Social History
Tobacco: Non-smoker
Alcohol: None
Drug: None
Personal:
Living: With Family ( gretchen)
Employment: Retired
Family History
Family History: Not pertinent
Allergies / Home Medications
Allergies reflects when Allergies were last updated in [facility].
Home Medications with original date entered in [facility]
Allergy/Medication List:
Allergies
Allergy/AdvReac Type Severity Reaction Status Date / Time
fentanyl Allergy Unknown Verified 04/24/23 12:48
iodine Allergy Unknown Verified 04/24/23 12:48
midazolam [From Versed] Allergy Unknown Verified 04/24/23 12:48
Home Medications
azelastine 137 mcg (0.1 %) nasal spray aerosol 1 spray intranasal BID PRN allergies 04/30/23
clopidogrel 75 mg tablet 75 mg PO QPM Blood Clot Prevention/Tx 04/30/23
lansoprazole 30 mg capsule,delayed release 30 mg PO QPM Gastrointestinal Issue 04/30/23
nitroglycerin 0.4 mg sublingual tablet 0.4 mg sublingual [id number] PRN chest pain 04/30/23
sitagliptin phosphate 100 mg tablet (Januvia) 100 mg PO QPM Diabetes 04/30/23
tamsulosin 0.4 mg capsule 0.4 mg PO QPM Urinary Issue 04/30/23
docusate sodium 100 mg capsule 100 mg PO BID #0 caps 05/08/23
polyethylene glycol 3350 17 gram oral powder packet (HealthyLax) 17 g PO DAILY #0 ea 05/08/23
bisacodyl 10 mg rectal suppository (Dulcolax (bisacodyl)) 10 mg TX DAILY PRN constipation 05/12/23
magnesium hydroxide 400 mg/5 mL oral suspension (Milk of Magnesia) 30 ml PO DAILYPRN PRN if no BM on day 4 05/12/23
sodium phosphates 19 gram-7 gram/118 mL enema (Fleet Enema) 118 ml TX DAILY PRN constipation 05/12/23
acetaminophen 325 mg tablet 650 mg PO Q4HPRN PRN mild pain/fever>100 05/28/23
midodrine 10 mg tablet 10 mg PO BID Sepsis 05/28/23
Review of Systems
-
History Source: Patient and Family ( gretchen, son jimbo daughter in law aminata)
A 12 point ROS was completed and negative except as noted: Yes
Constitutional: Denies Fever or Fatigue
EENT: Denies Sore Throat or Runny Nose
Respiratory: Denies Cough or Trouble Breathing
Cardiac: Reports Syncope; Denies Chest Pain
Abdomen/GI: Denies Abdominal Pain, Nausea, Vomiting, Diarrhea or Constipated
: Denies Dysuria, Frequency, Flank Pain, Incontinence or Difficulty Voiding
Musculoskeletal: Denies Joint Pain or Edema
Skin: Reports Other (abrasions bilat knees )
Neurological: Reports Dizzy; Denies Headache, Weakness or Numbness
Endocrine: Reports No Symptoms
Hematologic/Lymphatic: Reports No Symptoms
Psych: Reports Calm
Physical Exam
Vital Signs
Vital Signs
Temp Pulse Resp BP Pulse Ox
97.4 F 71 27 135/76 98
05/28/23 10:50 05/28/23 13:30 05/28/23 13:30 05/28/23 13:00 05/28/23 13:30
Physical Exam
General: No Apparent Distress, Comfortable and Conversant; No Pain, Fever or Chills
Respiratory: Clear; No Wheezes, Rales or Rhonchi
Cardiac: S1/S2 and Regular Rhythm; No Murmur, Rub, Gallop or Peripheral Edema
Breast: Deferred by me
GI: Soft, Non Tender, Non Distended, Normal Bowel Sounds and No Hepatosplenomegaly
Genito-urinary: Deferred by me
Musculoskeletal: No Clubbing, No Cyanosis and No Edema
Skin: Warm, Dry and Other (bilat abrasions to knees ); No Jaundice
Neuro: Awake, Alert, Oriented (to name family at bedside) and Other (chronic [place]); No Slurred Speech, Facial Droop or Tremors
Psych: Calm
Laboratory Results
-
05/28/23 10:59
05/28/23 10:59
Laboratory Results
Total Bilirubin 0.7 mg/dl (0.2-1.3) 05/28/23 10:59
AST 24 U/L (17-59) 05/28/23 10:59
ALT 19 U/L (0-50) 05/28/23 10:59
Alkaline Phosphatase 79 U/L (38-126) 05/28/23 10:59
Impression/Plan
-
Impression/plan:
Observation telemetry
#Orthostatic hypotension with Falls at SNF
Orthostatic vitals
Lying 135/76
Sitting 95/51
-Fall precautions
-Orthostatic vitals
-Had midodrine 10mg twice daily on 321 from 5 mg twice
-Change midodrine to 10 mg p.o. 3 times daily 08, 1300, 1800
IV NSS 60 cc an hour given 1 L prior in ER
-Check COVID swab
-PT/OT/case advocate consult
# status post cholecystitis with lap alistair 05/06/2023
-Patient completed course of Zosyn and Augmentin
PT/OT/case management consult for SNF facility
#Hyperkalemia�mild
K5.2 will follow BMP
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
-Oriented to name and family members Patience, son Jimbo, [id number] Aminata at bedside
#BPH
#Bladder scans
-Hold Flomax if SBP<110
-May continue condom cath
#CAD status post CABG and stents
-Continue Plavix
#DM2
BS 149
Recent HgbA1c 6.7% May 2023
Accu-Cheks with SSI
-Continue Januvia 100 mg every afternoon
#GERD
Continue PPI
#Constipation history
Continue daily MiraLAX, Colace 100 mg twice daily
DVT prophylaxis
Subcu Lovenox
DNR per family at bedside , son, [id number]
[2023-05-28 14:31] LABS: COVID-19 Antigen Negative (Negative)
--- NOTE | 2023-05-28 15:35 | CM ---
Patient seen at bedside with physician, patient and son, daughter. Patient with dementia and has been at [facility] for STC for last 3 weeks. CM reviewed OBS/OGLESBY form and signed form placed on chart. Patient and family plan is for him to return
to [facility] for further rehab. CM spoke with admissions at [facility] and updated Whit regarding plan. CM will continue to follow for discharge planning needs.
Plan; return to [facility] when medically appropriate.
[2023-05-28 15:49] LABS: Troponin I < 0.012 ng/ml
--- NOTE | 2023-05-28 16:30 | PTCARENOTE ---
05/27- Patient transferred and oriented to unit without issue. AAOX2; Pleasantly confused; Able to stand and walk with walker with assistance. Patient visibly dizzy upon sitting and standing but able to walk with 2-person assist once up. Teley
#49, currently NSR. Denies any other needs at this time.
[2023-05-28 16:47] LABS: Glucose - Point of Care 151 mg/dl (70-99)
[2023-05-28] MEDS: ProAmatine 10 MG PO (17:59)
[2023-05-28] MEDS: FLOMAX 0.400000000000000022 MG PO (18:00)
[2023-05-28] MEDS: JANUVIA 100 MG PO (18:00)
[2023-05-28] MEDS: LOVENOX 40 MG SC (18:00)
[2023-05-28] MEDS: PLAVIX 75 MG PO (18:00)
[2023-05-28] MEDS: PROTONIX 40 MG PO (18:00)
[2023-05-28] MEDS: COLACE PO (20:24)
--- NOTE | 2023-05-28 21:31 | PTCARENOTE ---
Pt confused, refuses lab draw for troponin. House [employer] made aware. No new orders received.
[2023-05-28 21:44] LABS: Glucose - Point of Care 145 mg/dl (70-99)
[2023-05-29] VITALS (8 sets, daily range): BP systolic 114–167; BP diastolic 62–87; PULSE 67–89; BMI 21.3
--- NOTE | 2023-05-29 03:28 | DOWNTIME ---
There was a [employer] Client Executive Admin Downtime on 05/29/2023 from 0100 to 05/29/2023 at 0322. Downtime documentation of patient's care, including medication administrations, has been reconciled in the electronic record per guidelines. Refer to the
patient's paper chart under the miscellaneous tab to see printed paper medication records and downtime forms.
[2023-05-29] MEDS: NSS 1000 IV ×2 (05:12→14:11)
[2023-05-29] MEDS: ProAmatine 10 MG PO ×3 (07:30→16:32)
[2023-05-29] MEDS: MIRALAX 17 GRAMS PO (07:31)
[2023-05-29] MEDS: COLACE 100 MG PO ×2 (07:31→19:30)
[2023-05-29 07:36] LABS: Glucose - Point of Care 108 mg/dl (70-99)
[2023-05-29] MEDS: NOVOLOG FLEXPEN-LOW RESISTANCE SC ×2 (07:38→16:31)
[2023-05-29 07:51] LABS: % Basophils 0.4 % (0-2); % Eosinophils 5.4 % (0-6); % Immature Granulocytes 0.4 % (0-0.5); % Lymphocytes 8.6 % (20.5-51.1); % Monocytes 10.6 % (1.7-9.3); % Neutrophils 74.6 % (42.2-75.2); Absolute Eosinophils 0.4 10^3/uL (0-0.7); Absolute Lymphocytes 0.6 10^3/uL (1.2-3.4); Absolute Monocytes 0.8 10^3/uL (0.1-0.6); Absolute Neutrophils 5.3 10^3/uL (1.4-6.5); Hematocrit 39.1 % (39.0-52.0); Hemoglobin 13.4 g/dL (13.0-18.0); Mean Corp Hgb Conc. 34.3 g/dL (33.0-37.0); Mean Corpuscular Hgb 29.9 pg (27.0-31.0); Mean Corpuscular Volume 87.3 fL (80.0-94.0); Mean Platelet Volume 10.1 fL (7.4-10.4); Nucleated Red Blood Cells % 0 % (-); Platelet Count 190 10^3/uL (130-400); Red Blood Cell Count 4.48 10^6/uL (4.70-6.10); Red Cell Dist. Width 12.9 % (11.5-14.5); White Blood Cell Count 7.1 10^3/uL (4.8-10.8)
[2023-05-29 08:14] LABS: Troponin I < 0.012 ng/ml
[2023-05-29 08:20] LABS: Blood Urea Nitrogen 15 mg/dl (9-20); Calcium 8.5 mg/dl (8.4-10.2); Carbon Dioxide 22 mmol/L (22-30); Chloride 107 mmol/L (98-107); Estimated Creatinine Clearance 73 ml/min; Glucose 122 mg/dl (70-99); Potassium 4.4 mmol/L (3.5-5.1); Sodium 133 mmol/L (135-145); eGFR > 60.00
[2023-05-29] MEDS: TYLENOL 650 MG PO (09:06)
[2023-05-29 10:09] LABS: Cortisol, Random 16.7 ug/dl; TSH Reflex To Free T4 3.51 uIU/ml (0.47-4.68)
[2023-05-29 12:06] LABS: Glucose - Point of Care 192 mg/dl (70-99)
[2023-05-29] MEDS: NOVOLOG FLEXPEN-LOW RESISTANCE 1 UNITS SC (12:25)
--- NOTE | 2023-05-29 15:59 | CM ---
Patient seen at bedside with physician. Patient continues to complain of lightheadedness when he stands. Patient family has held bed at [facility] and CM updated admissions. Patient can return to [facility] when admitted. CM will continue to follow for
discharge planning needs.
Plan; SNF
[2023-05-29 16:26] LABS: Glucose - Point of Care 90 mg/dl (70-99)
[2023-05-29] MEDS: FLOMAX 0.400000000000000022 MG PO (16:32)
[2023-05-29] MEDS: PLAVIX 75 MG PO (16:32)
[2023-05-29] MEDS: PROTONIX 40 MG PO (16:33)
[2023-05-29] MEDS: LOVENOX 40 MG SC (16:33)
[2023-05-29] MEDS: JANUVIA 100 MG PO (16:33)
--- NOTE | 2023-05-29 16:57 | W.PN.HOSP.TC ---
Today's Communication/Plan
-
cont IVF
check ECHO
Assessment / Plan
Assessment / Plan
pt is an 82 year old male
Falls at SNF--likely due to symptomatic Orthostatic hypotension --cont IVF--follow orthostatic VS BID--PT/OT--increase midodrine and allow permissive hypertension--compression therapy--cortisol and TSH WNL--check ECHO
status post cholecystitis with lap alistair 05/06/2023--Patient completed course of Zosyn and Augmentin--PT/OT/case management consult for SNF facility
Hyperkalemia/hyponatremia�mild--check cortisol
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
BPH--Bladder scans--Hold Flomax if SBP<110--May continue condom cath
CAD status post CABG and stents--Continue Plavix
DM2--Recent HgbA1c 6.7% May 2023--Accu-Cheks with SSI--Continue Januvia 100 mg every afternoon
GERD--Continue PPI
Constipation history--Continue daily MiraLAX, Colace 100 mg twice daily
DVT prophylaxis--Subcu Lovenox
DNR per family at bedside , son, [id number]
Anticipated Discharge: 24 - 48 hours
Subjective/Interval History
-
Date of Service: May 29, 2023
pt still c/o lightheaded with getting up--still orthostatic
Objective Data
-
Labs:
Laboratory Results
05/29/23
07:18
WBC 7.1
Hgb 13.4
Hct 39.1
Plt Count 190
Sodium 133 L
Potassium 4.4
Chloride 107
Carbon Dioxide 22
BUN 15
Creatinine 0.7
Glucose 122 H
Calcium 8.5
Vital Signs:
max temp for 24 hours
05/29/23
03:36
Temp 98.6 F
Vital Signs
Temp Pulse Resp BP Pulse Ox
97.5 F 71 18 130/65 96
05/29/23 15:00 05/29/23 15:00 05/29/23 15:00 05/29/23 15:00 05/29/23 15:00
I&O
05/28/23 05/29/23 05/30/23
06:59 06:59 06:59
Intake Total 1080 / 1080
Output Total 550 / 550
Balance 530 / 530
Review of Systems
-
All other systems: Reviewed and negative
Physical Exam
-
General: Well Developed, Well Nourished and No Apparent Distress
HEENT: Normocephalic and Atraumatic
Respiratory: Clear to Auscultation; Negative Wheezes or Rhonchi
Cardiac: Regular Rhythm and S1/S2; Negative Murmur
GI: Soft, Nontender, Nondistended and Normal Bowel Sounds
Musculoskeletal: No Clubbing, No Cyanosis and No Edema
Neuro: Awake
[2023-05-29 20:38] LABS: Glucose - Point of Care 141 mg/dl (70-99)
[2023-05-30] VITALS (7 sets, daily range): BP systolic 65–170; BP diastolic 41–89; PULSE 71–91; BMI 21.6
[2023-05-30 07:17] LABS: Glucose - Point of Care 114 mg/dl (70-99)
[2023-05-30 07:40] LABS: % Basophils 0.4 % (0-2); % Eosinophils 5.6 % (0-6); % Immature Granulocytes 0.3 % (0-0.5); % Lymphocytes 7.9 % (20.5-51.1); % Monocytes 8.8 % (1.7-9.3); Absolute Eosinophils 0.4 10^3/uL (0-0.7); Absolute Lymphocytes 0.6 10^3/uL (1.2-3.4); Absolute Monocytes 0.7 10^3/uL (0.1-0.6); Absolute Neutrophils 5.7 10^3/uL (1.4-6.5); Hematocrit 39.9 % (39.0-52.0); Hemoglobin 13.8 g/dL (13.0-18.0); Mean Corp Hgb Conc. 34.6 g/dL (33.0-37.0); Mean Corpuscular Hgb 30.1 pg (27.0-31.0); Mean Corpuscular Volume 86.9 fL (80.0-94.0); Mean Platelet Volume 10.3 fL (7.4-10.4); Nucleated Red Blood Cells % 0 % (-); Platelet Count 198 10^3/uL (130-400); Red Blood Cell Count 4.59 10^6/uL (4.70-6.10); Red Cell Dist. Width 13.1 % (11.5-14.5); White Blood Cell Count 7.4 10^3/uL (4.8-10.8)
[2023-05-30 08:09] LABS: Blood Urea Nitrogen 11 mg/dl (9-20); Calcium 8.8 mg/dl (8.4-10.2); Carbon Dioxide 25 mmol/L (22-30); Chloride 102 mmol/L (98-107); Estimated Creatinine Clearance 86 ml/min; Glucose 122 mg/dl (70-99); Potassium 3.9 mmol/L (3.5-5.1); Sodium 133 mmol/L (135-145); eGFR > 60.00
[2023-05-30] MEDS: NOVOLOG FLEXPEN-LOW RESISTANCE SC ×2 (10:10→17:42)
[2023-05-30] MEDS: MIRALAX 17 GRAMS PO (10:11)
[2023-05-30] MEDS: ProAmatine 10 MG PO ×3 (10:11→18:50)
[2023-05-30] MEDS: COLACE 100 MG PO ×2 (10:12→20:13)
[2023-05-30] MEDS: NSS 1000 IV (10:28)
[2023-05-30 11:13] LABS: Glucose - Point of Care 173 mg/dl (70-99)
[2023-05-30] MEDS: NOVOLOG FLEXPEN-LOW RESISTANCE 1 UNITS SC (12:59)
--- NOTE | 2023-05-30 15:40 | CM ---
Patient seen at bedside with physician and . Patient has bed hold at [facility], per family they are continuing to hold the bed. Patient continues to have concerns about orthostasis and was taking down his compression stockings. CM will continue to
follow for discharge planning needs.
Plan; return to [facility] when medically appropriate.
[2023-05-30 16:23] LABS: Glucose - Point of Care 135 mg/dl (70-99)
--- NOTE | 2023-05-30 16:52 | W.PN.HOSP.TC ---
Today's Communication/Plan
-
consult neuro
Assessment / Plan
Assessment / Plan
pt is an 82 year old male
Falls at SNF--likely due to symptomatic Orthostatic hypotension --cont IVF--follow orthostatic VS BID--PT/OT--increase midodrine and allow permissive hypertension--compression therapy (pt took off)--cortisol/TSH/ECHO WNL--consult neuro
status post cholecystitis with lap alistair 05/06/2023--Patient completed course of Zosyn and Augmentin--PT/OT/case management consult for SNF facility
Hyperkalemia/hyponatremia�mild--check cortisol
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
BPH--Bladder scans--Hold Flomax if SBP<110--May continue condom cath
CAD status post CABG and stents--Continue Plavix
DM2--Recent HgbA1c 6.7% May 2023--Accu-Cheks with SSI--Continue Januvia 100 mg every afternoon
GERD--Continue PPI
Constipation history--Continue daily MiraLAX, Colace 100 mg twice daily
DVT prophylaxis--Subcu Lovenox
DNR per family at bedside , son, [id number]
Anticipated Discharge: 24 - 48 hours
Subjective/Interval History
-
Date of Service: May 30, 2023
pt still orthostatic with higher drop than before
Objective Data
-
Labs:
Laboratory Results
05/30/23
06:45
WBC 7.4
Hgb 13.8
Hct 39.9
Plt Count 198
Sodium 133 L
Potassium 3.9
Chloride 102
Carbon Dioxide 25
BUN 11
Creatinine 0.6 L
Glucose 122 H
Calcium 8.8
Vital Signs:
max temp for 24 hours
05/30/23
11:29
Temp 97.6 F
Vital Signs
Temp Pulse Resp BP Pulse Ox
97.5 F 75 18 122/63 96
05/30/23 15:16 05/30/23 15:16 05/30/23 15:16 05/30/23 15:16 05/30/23 15:16
I&O
05/29/23 05/30/23 05/31/23
06:59 06:59 06:59
Intake Total 1080 / 1080 3000 / 3000
Output Total 550 / 550 500 / 500
Balance 530 / 530 2500 / 2500
Review of Systems
-
All other systems: Reviewed and negative
Physical Exam
-
General: Well Developed, Well Nourished and No Apparent Distress
HEENT: Normocephalic and Atraumatic
Respiratory: Clear to Auscultation; Negative Wheezes or Rhonchi
Cardiac: Regular Rhythm and S1/S2; Negative Murmur
GI: Soft, Nontender, Nondistended and Normal Bowel Sounds
Musculoskeletal: No Clubbing, No Cyanosis and No Edema
Neuro: Awake
[2023-05-30] MEDS: NSS IV (17:43)
[2023-05-30] MEDS: PROTONIX 40 MG PO (18:50)
[2023-05-30] MEDS: FLOMAX 0.400000000000000022 MG PO (18:50)
[2023-05-30] MEDS: PLAVIX 75 MG PO (18:50)
[2023-05-30] MEDS: LOVENOX 40 MG SC (18:50)
[2023-05-30] MEDS: JANUVIA 100 MG PO (18:52)
[2023-05-30] MEDS: TYLENOL 650 MG PO (20:13)
[2023-05-30 21:49] LABS: Glucose - Point of Care 106 mg/dl (70-99)
[2023-05-30] MEDS: DESENEX/MITRAZOL/ZEASORB 1 APPLIC TOPICAL (22:07)
[2023-05-31] VITALS (9 sets, daily range): BP systolic 87–170; BP diastolic 53–82; PULSE 63–74; BMI 21.4
[2023-05-31 07:13] LABS: Glucose - Point of Care 113 mg/dl (70-99)
--- NOTE | 2023-05-31 08:07 | CON.NEURO4 ---
Addendum entered and electronically signed by Jules Powers MD 05/31/23 12:40:
I saw and evaluated the patient I reviewed the note by Lucia Rinaldi agree with the findings the following comments:
82-year-old male with a past medical history of Alzheimer's dementia, coronary artery disease with stent, hypertension, diabetes mellitus presented to hospital with falls, generalized weakness and orthostatic hypotension.
Patient unable give much reliable history other than that he has a headache currently, and does feel dizzy when he sits up or stands, he cannot recall how long has been having difficulty with dizziness when standing.
Patient had recently been increased from 5 mg 3 times daily midodrine to 10 mg 3 times daily midodrine. There is no known history of other autonomic disorders, has BPH and is on Tamsulosin, unclear enough any history of erectile dysfunction.
Echocardiogram here showed Concentric left ventricular hypertrophy fraction normal left ventricular chamber size and no significant valvular disease.
Neurologic examination shows awake patient, knows in the hospital but otherwise poor memory recall and obvious dementia, no significant cranial nerve abnormalities and motor function shows symmetric with normal muscle bulk and tone no tremor or
parkinsonism, no spasticity.
Assessment: Orthostatic hypotension. Tamsulosin probably contributing some. Does not show signs of a systemic autonomic neuropathy and he does not appear to have a parkinsonian type dementia which is commonly associated with orthostatic
hypotension, transthoracic echocardiogram not suggestive of a cardiac cause such as valvular disease. Review of home medications shows Tamsulosin could be a contributor
Recommendations
-Continue the midodrine 10 mg 3 times daily
-Abdominal binder and RAJIV stockings
-Start fludrocortisone 0.1 mg in the morning, after 1 week increase to 0.2 mg
-If still having significant orthostasis and another 3 days would consider the addition of either Venlafaxine or Pyridostigmine
-Probably not be an option to stop Tamsulosin given BPH and the problems that would arise from urinary retention
Original Note:
Consultation - Neurology 4
-
CONSULTING PHYSICIAN: Mar Powers MD
REFERRING PHYSICIAN: Hospitalists/Dr. Gibson
DICTATED BY: TIN Petit
DATE/TIME OF REQUEST: 05/30/23
DATE/TIME OF CONSULTATION: 05/31/23
Reason for Consultation: Orthostasis
History of Present Illness:
This is an 82-year-old male who has presented to the hospital on 05/28/23 from [facility] rehab with report of weakness, falls, and orthostasis. Patient was recently hospitalized at from 04/30/23-05/08/23 with sepsis secondary to cholecystitis and is
s/p laparoscopic cholecystectomy on 05/06/23. He was discharged to rehab on 05/08/23. While at rehab, patient was reporting significant weakness, fatigue, and has been having positive orthostatic vital signs. Midodrine 5mg BID was initiated, and then
increased on 05/23/23 to 10mg BID. On 05/28/23 he had a fall with head trauma prompting evaluation in the ER. CT head was obtained on arrival and is negative for any acute abnormalities. Orthostatic vital signs are significantly positive during this
admission. Patient has dementia and is a poor historian but can somewhat summarize what has been going on. He currently is sitting OOB in the chair and endorses a headache and dizziness at rest in addition to a generalized sense of weakness. He
denies any vision changes, speech/swallow difficulty, nausea, numbness, chest pain, palpitations, and shortness of breath.
Past Medical History: Dementia with sundowning/behavioral disturbance, CAD, HTN, NIDDM, BPH, GERD, cellulitis, sepsis secondary to cholecystitis, lymphedema, orthostatic hypotension
Surgical History: Cardiac stents, appendectomy, lap cholecystectomy, hernia repair
Family History: Reviewed and noncontributory.
Social History: Denies tobacco, alcohol, and illicit drug use.
Allergies: Fentanyl, iodine, midazolam.
Home Medications: See below.
Review of Symptoms:
Patient denies any fever, chest pain, shortness of breath, GI or symptoms.
�Per the HPI.�All systems are reviewed negative except above.
Physical Exam:
The patient is afebrile, abdomen is nondistended, breathing is unlabored, skin is warm and dry, no edema.
Neurologic Examination:
The patient is awake, alert and oriented to name and year only. Unable to provide his age, month, or place. He is able to follow one-step commands and answer questions appropriately. There is no aphasia or dysarthria. On cranial nerve assessment,
pupils are 3 mm bilateral, round and reactive to light and accommodation. Visual joyce are full. Extraocular movements are intact. Facial sensations are intact and bilaterally symmetrical, there is no facial asymmetry. Hearing is intact bilaterally
to normal conversation volume. Tongue palate and uvula are midline. Sternocleidomastoid strengths are full bilaterally. Motor strengths are 5/5 bilateral upper and lower extremities on medical research [place] scale. There is no drift or involuntary
movement noted. Deep tendon reflexes are 1+ bilateral upper and lower extremities and Babinski is absent bilaterally. Sensation of cold is absent distally. Vibration is absent in toes only. There was no extinction noted on double simultaneous
stimulation. Coordination is intact by finger to nose bilaterally.
Lab Results: See below.
Neuro Imaging:
1. CT Head 05/28/23: No acute intracranial abnormality. Stable chronic findings.
Differentials for the patient's presentation include:
1. Weakness, fatigue, and falls likely secondary to orthostatic hypotension.
2. Recent sepsis/lap cholecystectomy
3. Dementia
Recommendations:
-Continue increased midodrine 10mg BID.
-Florinef 0.1mg daily added.
-Abdominal binder and RAJIV stockings daily. Extremely slow position changes and adequate hydration.
-Check orthostatic vital signs BID.
-Encourage adequate daytime sunlight exposure and limit napping to promote normal sleep/wake cycles while hospitalized.
-PT/OT/ST evaluations.
-DVT prophylaxis.
Discussed patient care with: Dr. Powers, the patient
Vital Signs and Labs
-
Vital Signs and Labs:
Vital Signs
Temp Pulse Resp BP Pulse Ox
97.7 F 73 18 129/68 99
05/31/23 11:41 05/31/23 11:41 05/31/23 11:41 05/31/23 11:41 05/31/23 11:41
Lab Results
05/31/23 07:01
05/31/23 07:01
Sodium 132 mmol/L (135-145) L 05/31/23 07:01
Potassium 4.1 mmol/L (3.5-5.1) 05/31/23 07:01
BUN 12 mg/dl (9-20) 05/31/23 07:01
Glucose 121 mg/dl (70-99) H 05/31/23 07:01
Calcium 8.8 mg/dl (8.4-10.2) 05/31/23 07:01
Medications
-
Active Medications
Generic Name Dose Route Start Last Admin
Trade Name Freq PRN Reason Stop Dose Admin
Acetaminophen 650 mg 05/28/23 16:57 05/31/23 09:28
Acetaminophen 325 Mg Tablet PO 06/25/23 16:56 650 mg
Q4HPRN PRN Administration
mild pain/fever>100
Bisacodyl 10 mg 05/28/23 16:57
Bisacodyl 10 Mg Rectal Suppository RECTAL 06/25/23 16:56
DAILY PRN
constipation
Clopidogrel Bisulfate 75 mg 05/28/23 18:00 05/30/23 18:50
Clopidogrel 75 Mg Tablet PO 06/25/23 17:59 75 mg
QPM EARL Administration
Dextrose 12.5 grams 05/28/23 20:00
Dextrose 50% (0.5 Grams/Ml) 50 Ml Syringe IV 06/25/23 19:59
[id number] PRN
hypoglycemia
Protocol
Docusate Sodium 100 mg 05/28/23 20:00 05/31/23 09:28
Docusate Sodium 100 Mg Capsule PO 06/25/23 19:59 100 mg
BID EARL Administration
Enoxaparin Sodium 40 mg 05/28/23 18:00 05/30/23 18:50
Enoxaparin Sodium 40 Mg/0.4 Ml Syringe SC 06/25/23 17:59 40 mg
QPM EARL Administration
Fludrocortisone Acetate 0.1 mg 05/31/23 08:00 05/31/23 09:28
Fludrocortisone Acetate 0.1 Mg Tablet PO 06/28/23 07:59 0.1 mg
DAILY EARL Administration
Glucagon 1 mg 05/28/23 20:00
Glucagon 1 Mg Vial IM 06/25/23 19:59
PRN PRN
hypoglycemia - no IV access
Protocol
Insulin Aspart 0 units 05/29/23 07:30 05/31/23 11:31
Insulin Aspart Low Resistance 300 Units/3 Ml Pen.Injctr SC 06/26/23 07:29 Not Given
AC EARL
Protocol
Magnesium Hydroxide 30 ml 05/28/23 16:57
Milk Of Magnesia 30 Ml Cup PO 06/25/23 16:56
DAILYPRN PRN
if no BM on day 4
Miconazole Nitrate 0 applic 05/30/23 21:00 05/31/23 09:29
Miconazole Powder Bottle TOPICAL 06/27/23 20:59 1 applic
BID EARL Administration
Midodrine 10 mg 05/28/23 18:00 05/31/23 09:28
Midodrine 5 Mg Tablet PO 06/25/23 17:59 10 mg
TID@0800,1300,1800 EARL Administration
Pantoprazole Sodium 40 mg 05/28/23 18:00 05/30/23 18:50
Pantoprazole 40 Mg Delayed Release Tablet PO 06/25/23 17:59 40 mg
QPM EARL Administration
Polyethylene Glycol 17 grams 05/29/23 08:00 05/31/23 09:28
Polyethylene Glycol Powder 17 Grams Packet PO 06/26/23 07:59 17 grams
DAILY EARL Administration
Sitagliptin Phosphate 100 mg 05/28/23 18:00 05/30/23 18:52
Sitagliptin (Januvia) 100 Mg Tablet PO 06/25/23 17:59 100 mg
QPM EARL Administration
Sodium Biphosphate/Sodium Phosphate 135 ml 05/28/23 16:57
Fleet Phosphate Enema (Adult) 135 Ml Bottle RECTAL 06/25/23 16:56
DAILY PRN
constipation
Sodium Chloride 0 flush 05/28/23 15:00
Sodium Chloride 0.9% (Flush) Syringe IV 06/25/23 14:59
PER PROTOCOL EARL
Tamsulosin HCl 0.4 mg 05/28/23 18:00 05/30/23 18:50
Tamsulosin 0.4 Mg Capsule PO 06/25/23 17:59 0.4 mg
QPM EARL Administration
Home Medications
�Medication �Instructions �Recorded
azelastine 137 mcg (0.1 %) nasal 1 spray intranasal BID PRN 04/30/23
spray aerosol allergies
clopidogrel 75 mg tablet 75 mg PO QPM Blood Clot 04/30/23
Prevention/Tx
lansoprazole 30 mg capsule,delayed 30 mg PO QPM Gastrointestinal Issue 04/30/23
release
nitroglycerin 0.4 mg sublingual 0.4 mg sublingual [id number] PRN 04/30/23
tablet chest pain
sitagliptin phosphate 100 mg 100 mg PO QPM Diabetes 04/30/23
tablet (Januvia)
tamsulosin 0.4 mg capsule 0.4 mg PO QPM Urinary Issue 04/30/23
docusate sodium 100 mg capsule 100 mg PO BID #0 caps 05/08/23
polyethylene glycol 3350 17 gram 17 g PO DAILY #0 ea 05/08/23
oral powder packet (HealthyLax)
bisacodyl 10 mg rectal suppository 10 mg NC DAILY PRN constipation 05/12/23
(Dulcolax (bisacodyl))
magnesium hydroxide 400 mg/5 mL 30 ml PO DAILYPRN PRN if no BM on 05/12/23
oral suspension (Milk of Magnesia) day 4
sodium phosphates 19 gram-7 118 ml NC DAILY PRN constipation 05/12/23
gram/118 mL enema (Fleet Enema)
acetaminophen 325 mg tablet 650 mg PO Q4HPRN PRN mild 05/28/23
pain/fever>100
midodrine 10 mg tablet 10 mg PO BID Sepsis 05/28/23
[2023-05-31 08:15] LABS: % Basophils 0.5 % (0-2); % Immature Granulocytes 0.3 % (0-0.5); % Lymphocytes 9.1 % (20.5-51.1); % Monocytes 10.9 % (1.7-9.3); % Neutrophils 73.2 % (42.2-75.2); Absolute Eosinophils 0.5 10^3/uL (0-0.7); Absolute Lymphocytes 0.7 10^3/uL (1.2-3.4); Absolute Monocytes 0.9 10^3/uL (0.1-0.6); Absolute Neutrophils 5.7 10^3/uL (1.4-6.5); Hematocrit 39.5 % (39.0-52.0); Hemoglobin 13.7 g/dL (13.0-18.0); Mean Corp Hgb Conc. 34.7 g/dL (33.0-37.0); Mean Corpuscular Hgb 29.8 pg (27.0-31.0); Mean Corpuscular Volume 85.9 fL (80.0-94.0); Mean Platelet Volume 10.1 fL (7.4-10.4); Nucleated Red Blood Cells % 0 % (-); Platelet Count 190 10^3/uL (130-400); Red Cell Dist. Width 12.9 % (11.5-14.5); White Blood Cell Count 7.8 10^3/uL (4.8-10.8)
[2023-05-31] MEDS: NOVOLOG FLEXPEN-LOW RESISTANCE SC ×3 (08:46→17:51)
[2023-05-31 08:52] LABS: Blood Urea Nitrogen 12 mg/dl (9-20); Calcium 8.8 mg/dl (8.4-10.2); Carbon Dioxide 25 mmol/L (22-30); Chloride 103 mmol/L (98-107); Estimated Creatinine Clearance 73 ml/min; Glucose 121 mg/dl (70-99); Magnesium 2.1 mg/dl (1.6-2.3); Potassium 4.1 mmol/L (3.5-5.1); Sodium 132 mmol/L (135-145); eGFR > 60.00
[2023-05-31] MEDS: MIRALAX 17 GRAMS PO (09:28)
[2023-05-31] MEDS: FLORINEF 0.100000000000000006 MG PO (09:28)
[2023-05-31] MEDS: COLACE 100 MG PO ×2 (09:28→21:52)
[2023-05-31] MEDS: ProAmatine 10 MG PO ×3 (09:28→17:48)
[2023-05-31] MEDS: TYLENOL 650 MG PO (09:28)
[2023-05-31] MEDS: DESENEX/MITRAZOL/ZEASORB 1 APPLIC TOPICAL ×2 (09:29→21:52)
[2023-05-31 11:04] LABS: Glucose - Point of Care 115 mg/dl (70-99)
--- NOTE | 2023-05-31 11:28 | W.PN.HOSP.TC ---
Today's Communication/Plan
-
cont florinef--next step would be to stop flomax
Assessment / Plan
Assessment / Plan
pt is an 82 year old male
Falls at SNF--likely due to symptomatic Orthostatic hypotension --IVF did not help--follow orthostatic VS BID--PT/OT--cont midodrine and allow permissive hypertension--compression therapy (pt took off)--cortisol/TSH/ECHO WNL--apprec neuro--florinef
started
status post cholecystitis with lap alistair 05/06/2023--Patient completed course of Zosyn and Augmentin--PT/OT/case management consult for SNF facility
Hyperkalemia/hyponatremia�mild--cortisol WNL
Dementia likely Alzheimer's type with behavioral disturbance and sundowning--Oriented to name and family members Patience, son Jimbo, [id number] Hoa at bedside
BPH--Bladder scans--Hold Flomax if SBP<110--May continue condom cath
CAD status post CABG and stents--Continue Plavix
DM2--Recent HgbA1c 6.7% May 2023--Accu-Cheks with SSI--Continue Januvia 100 mg every afternoon
GERD--Continue PPI
Constipation history--Continue daily MiraLAX, Colace 100 mg twice daily
DVT prophylaxis--Subcu Lovenox
DNR per family at bedside , son, [id number]
Anticipated Discharge: > 48 hours
Subjective/Interval History
-
Date of Service: May 31, 2023
pt says he is not symptomatic--neurology saw pt and added cari
Objective Data
-
Labs:
Laboratory Results
05/31/23
07:01
WBC 7.8
Hgb 13.7
Hct 39.5
Plt Count 190
Sodium 132 L
Potassium 4.1
Chloride 103
Carbon Dioxide 25
BUN 12
Creatinine 0.7
Glucose 121 H
Calcium 8.8
Vital Signs:
max temp for 24 hours
05/30/23
11:29
Temp 97.6 F
Vital Signs
Temp Pulse Resp BP Pulse Ox
97.4 F 67 17 167/82 96
05/31/23 07:46 05/31/23 07:46 05/31/23 07:46 05/31/23 07:46 05/31/23 07:46
I&O
05/30/23 05/31/23 06/01/23
06:59 06:59 06:59
Intake Total 3000 / 3000 900 / 900
Output Total 500 / 500 350 / 350
Balance 2500 / 2500 550 / 550
Review of Systems
-
All other systems: Reviewed and negative
Physical Exam
-
General: Appears Chronically Ill
HEENT: Normocephalic and Atraumatic
Respiratory: Clear to Auscultation; Negative Wheezes or Rhonchi
Cardiac: Regular Rhythm and S1/S2
GI: Soft, Nontender, Nondistended and Normal Bowel Sounds
Musculoskeletal: No Clubbing, No Cyanosis and No Edema
Neuro: Awake
Psych: Calm
--- NOTE | 2023-05-31 13:12 | CM ---
Patient seen at bedside with physician. Patient daughter also present and reviewed with physician plan for medical treatment. Patient indicated that he was less dizzy but per PT report significant dizziness. Patient family continue to hold bed at
[facility] and plan is to return to [facility] when medically appropriate. CM will continue to follow for discharge planning needs.
Plan; return to SNF
[2023-05-31 16:13] LABS: Glucose - Point of Care 127 mg/dl (70-99)
[2023-05-31] MEDS: PLAVIX 75 MG PO (17:48)
[2023-05-31] MEDS: FLOMAX 0.400000000000000022 MG PO (17:49)
[2023-05-31] MEDS: JANUVIA 100 MG PO (17:49)
[2023-05-31] MEDS: LOVENOX 40 MG SC (17:49)
[2023-05-31] MEDS: PROTONIX 40 MG PO (17:49)
[2023-05-31 21:35] LABS: Glucose - Point of Care 118 mg/dl (70-99)
[2023-06-01] VITALS (7 sets, daily range): BP systolic 94–165; BP diastolic 57–77; PULSE 68–71; BMI 21.1
--- NOTE | 2023-06-01 07:17 | W.PN.NEURO.1 ---
Today's Communication / Plan
-
-Continue midodrine 10 mg 3 times daily
-Continue fludrocortisone 0.1 mg in the morning, if tolerating would increase to 0.2 mg on 06/06
-Consideration for alternative agents for BPH
-Follow orthostatic vital signs
-If still significant orthostatic hypotension would consider venlafaxine versus pyridostigmine for additional medical therapy
Will follow peripherally and as needed call with questions or concerns
Neuro Assessment/Plan
Assessment
Assessment: Orthostatic hypotension. Tamsulosin probably contributing some. Does not show signs of a systemic autonomic neuropathy and he does not appear to have a parkinsonian type dementia which is commonly associated with orthostatic
hypotension, transthoracic echocardiogram not suggestive of a cardiac cause such as valvular disease. Review of home medications shows Tamsulosin could be a contributor
Subjective/Objective
Subjective Data
Date of Service: June 01, 2023
No acute events, patient still describes neck discomfort
Objective Data
Vital Signs
Temp Pulse Resp BP Pulse Ox
98.3 F 64 18 165/77 97
06/01/23 03:15 06/01/23 03:15 06/01/23 03:15 06/01/23 03:15 06/01/23 03:15
Lab Results
05/31/23 07:01
05/31/23 07:01
Sodium 132 mmol/L (135-145) L 05/31/23 07:01
Potassium 4.1 mmol/L (3.5-5.1) 05/31/23 07:01
BUN 12 mg/dl (9-20) 05/31/23 07:01
Glucose 121 mg/dl (70-99) H 05/31/23 07:01
Calcium 8.8 mg/dl (8.4-10.2) 05/31/23 07:01
Patient Allergies
fentanyl Allergy (Verified 04/24/23 12:48)
Unknown
iodine Allergy (Verified 04/24/23 12:48)
Unknown
midazolam [From Versed] Allergy (Verified 04/24/23 12:48)
Unknown
Review of Systems
-
History Source: Patient
All other systems: Reviewed and negative
Constitutional: No Symptoms
EENT: No Symptoms Reported
Respiratory: No Symptoms
Cardiac: No Symptoms
Abdomen/GI: No Symptoms
Genitourinary: No Symptoms
Musculoskeletal: No Symptoms
Skin: No Symptoms
Neuro: No Symptoms
Endocrine: No Symptoms
Hematologic / Lymphatic: No Symptoms
Physical Exam
-
General: Well Developed and Well Nourished
Eyes: No Ptosis
HEENT: Normocephalic
Neck: No Bruits Bilaterally
Respiratory: Clear to Auscultation
Cardiac: Regular Rhythm
GI: Normal Bowel Sounds
Skin: Unremarkable
Extremities: No Clubbing
Psych: Apparent Dementia; Negative Agitated or Intact Judgement/Insight
Extended Neurological Exam
Mood & Affect: Mood Unremarkable and Affect Unremarkable
Attention Span & Concentration: Awake, Alert and Interactive
Memory: Unremarkable
Tremor: Hand Tremor Absent
Involuntary Movement: None
Speech: Quality Unremarkable and Quantity Unremarkable; Negative Expressive Aphasia, Receptive Aphasia or Dysarthric
Cranial Nerve II: Left Eye: Pupillary Reactivity Unremarkable, Pupillary Size Unremarkable and Visual Morgan Intact
Cranial Nerve II: Right Eye: Pupillary Reactivity Unremarkable, Pupillary Size Unremarkable and Visual Morgan Intact
Cranial Nerves III, IV, : Extraocular Movement: Extraocular Movement Full in all Directions
Cranial Nerve VII: Facial Symmetry: Normal Facial Symmetry
Pronator Drift: No Drift in Upper Extremities
Deep Tendon Reflexes: Trace Throughout
Touch Sensation: Unremarkable
Data Reviewed
-
Orthostatic Testing: Report Reviewed
Labs: Report Reviewed
[2023-06-01 07:33] LABS: Glucose - Point of Care 124 mg/dl (70-99)
[2023-06-01] MEDS: ProAmatine 10 MG PO ×3 (07:52→16:55)
[2023-06-01] MEDS: MIRALAX 17 GRAMS PO (07:52)
[2023-06-01] MEDS: DESENEX/MITRAZOL/ZEASORB 1 APPLIC TOPICAL ×2 (07:53→21:32)
[2023-06-01] MEDS: COLACE 100 MG PO ×2 (07:53→21:31)
[2023-06-01] MEDS: FLORINEF 0.100000000000000006 MG PO (07:53)
[2023-06-01] MEDS: NOVOLOG FLEXPEN-LOW RESISTANCE SC ×3 (07:54→16:55)
[2023-06-01 08:52] LABS: Magnesium 2.1 mg/dl (1.6-2.3)
[2023-06-01 11:51] LABS: Glucose - Point of Care 131 mg/dl (70-99)
--- NOTE | 2023-06-01 13:51 | W.PN.HOSP.TC ---
Today's Communication/Plan
-
plan for family meeting tomorrow at ~1 to discuss next steps
Assessment / Plan
Assessment / Plan
pt is an 82 year old male
Falls at SNF--likely due to symptomatic Orthostatic hypotension --IVF did not help/cortisol,TSH,ECHO WNL--follow orthostatic VS BID--PT/OT--cont midodrine and allow permissive hypertension--compression therapy (pt took off)----apprec neuro--florinef
started
status post cholecystitis with lap alistair 05/06/2023--Patient completed course of Zosyn and Augmentin--PT/OT/case management consult for SNF facility
Hyperkalemia/hyponatremia�mild--cortisol WNL
Dementia likely Alzheimer's type with behavioral disturbance and sundowning--Oriented to name and family members Patience, son Jimbo, [id number] Hoa at bedside
BPH--Bladder scans--Hold Flomax if SBP<110--May continue condom cath
CAD status post CABG and stents--Continue Plavix
DM2--Recent HgbA1c 6.7% May 2023--Accu-Cheks with SSI--Continue Januvia 100 mg every afternoon
GERD--Continue PPI
Constipation history--Continue daily MiraLAX, Colace 100 mg twice daily
DVT prophylaxis--Subcu Lovenox
DNR per family at bedside , son, [id number]
Anticipated Discharge: > 48 hours
Subjective/Interval History
-
Date of Service: June 01, 2023
pt still orthostatic and dizzy
Objective Data
-
Vital Signs:
max temp for 24 hours
06/01/23
03:15
Temp 98.3 F
Vital Signs
Temp Pulse Resp BP Pulse Ox
97.9 F 64 20 165/77 96
06/01/23 11:33 06/01/23 12:01 06/01/23 11:33 06/01/23 12:01 06/01/23 11:33
I&O
05/31/23 06/01/23 06/02/23
06:59 06:59 06:59
Intake Total 900 / 900 630 / 630
Output Total 350 / 350 100 / 100
Balance 550 / 550 530 / 530
Review of Systems
-
All other systems: Reviewed and negative
Physical Exam
-
General: Appears Chronically Ill
HEENT: Normocephalic and Atraumatic
Respiratory: Clear to Auscultation; Negative Wheezes or Rhonchi
Cardiac: Regular Rhythm and S1/S2; Negative Murmur
GI: Soft, Nontender, Nondistended and Normal Bowel Sounds
Musculoskeletal: No Clubbing, No Cyanosis and No Edema
Neuro: Awake and Alert
[2023-06-01 16:45] LABS: Glucose - Point of Care 118 mg/dl (70-99)
[2023-06-01] MEDS: FLOMAX 0.400000000000000022 MG PO (16:55)
[2023-06-01] MEDS: LOVENOX 40 MG SC (16:56)
[2023-06-01] MEDS: JANUVIA 100 MG PO (16:56)
[2023-06-01] MEDS: PLAVIX 75 MG PO (16:56)
[2023-06-01] MEDS: PROTONIX 40 MG PO (16:56)
[2023-06-01 21:48] LABS: Glucose - Point of Care 130 mg/dl (70-99)
[2023-06-02] VITALS (7 sets, daily range): BP systolic 98–162; BP diastolic 61–79; PULSE 81–89; BMI 21.5
[2023-06-02 07:32] LABS: Glucose - Point of Care 123 mg/dl (70-99)
[2023-06-02] MEDS: ProAmatine 10 MG PO ×3 (07:54→17:12)
[2023-06-02] MEDS: DESENEX/MITRAZOL/ZEASORB 1 APPLIC TOPICAL ×2 (07:55→20:47)
[2023-06-02] MEDS: FLORINEF 0.100000000000000006 MG PO (07:55)
[2023-06-02] MEDS: MIRALAX 17 GRAMS PO (07:55)
[2023-06-02] MEDS: NOVOLOG FLEXPEN-LOW RESISTANCE SC ×2 (07:55→17:31)
[2023-06-02] MEDS: COLACE 100 MG PO ×2 (07:55→20:46)
[2023-06-02 08:49] LABS: Hematocrit 40.4 % (39.0-52.0); Mean Corp Hgb Conc. 34.7 g/dL (33.0-37.0); Mean Corpuscular Volume 86.7 fL (80.0-94.0); Mean Platelet Volume 10.3 fL (7.4-10.4); Platelet Count 190 10^3/uL (130-400); Red Blood Cell Count 4.66 10^6/uL (4.70-6.10); Red Cell Dist. Width 13.1 % (11.5-14.5); White Blood Cell Count 7.1 10^3/uL (4.8-10.8)
[2023-06-02 09:17] LABS: Blood Urea Nitrogen 12 mg/dl (9-20); Calcium 9.1 mg/dl (8.4-10.2); Carbon Dioxide 24 mmol/L (22-30); Chloride 102 mmol/L (98-107); Estimated Creatinine Clearance 85 ml/min; Glucose 116 mg/dl (70-99); Magnesium 2.1 mg/dl (1.6-2.3); Potassium 4.3 mmol/L (3.5-5.1); Sodium 133 mmol/L (135-145); eGFR > 60.00
--- NOTE | 2023-06-02 09:54 | W.PN.HOSP.TC ---
Today's Communication/Plan
-
cont florinef
family meeting
Assessment / Plan
Assessment / Plan
pt is an 82 year old male
Falls at SNF--likely due to symptomatic Orthostatic hypotension --IVF did not help/cortisol,TSH,ECHO WNL--follow orthostatic VS BID--PT/OT--cont midodrine and allow permissive hypertension--compression therapy/abdominal binder--apprec
neuro--florinef started--BP still drops but not as much 144/79, 81...121/71, 84...98/61, 89
Hyperkalemia/hyponatremia�mild--cortisol WNL
Dementia likely Alzheimer's type with behavioral disturbance and sundowning--Oriented to name and family members Patience, son Jimbo, [id number] Hoa at bedside
BPH--Bladder scans--Hold Flomax if SBP<110--May continue condom cath
CAD status post CABG and stents--Continue Plavix
DM2--Recent HgbA1c 6.7% May 2023--Accu-Cheks with SSI--Continue Januvia 100 mg every afternoon
GERD--Continue PPI
Constipation history--Continue daily MiraLAX, Colace 100 mg twice daily
status post cholecystitis with lap alistair 05/06/2023--Patient completed course of Zosyn and Augmentin--PT/OT/case management consult for SNF facility
DVT prophylaxis--Subcu Lovenox
DNR per family at bedside , son, [id number]--family meeting today to discuss next steps
Anticipated Discharge: 24 - 48 hours
Subjective/Interval History
-
Date of Service: June 02, 2023
pt said he was not as dizzy today with standing
Objective Data
-
Labs:
Laboratory Results
06/02/23
08:19
WBC 7.1
Hgb 14.0
Hct 40.4
Plt Count 190
Sodium 133 L
Potassium 4.3
Chloride 102
Carbon Dioxide 24
BUN 12
Creatinine 0.6 L
Glucose 116 H
Calcium 9.1
Vital Signs:
max temp for 24 hours
06/02/23
04:20
Temp 98.1 F
Vital Signs
Temp Pulse Resp BP Pulse Ox
98.1 F 77 20 136/72 97
06/02/23 04:20 06/02/23 07:54 06/02/23 04:20 06/02/23 07:54 06/02/23 04:20
I&O
06/01/23 06/02/23 06/03/23
06:59 06:59 06:59
Intake Total 630 / 630 540 / 540
Output Total 100 / 100
Balance 530 / 530 540 / 540
Review of Systems
-
All other systems: Reviewed and negative
Physical Exam
-
General: Well Developed, Well Nourished and No Apparent Distress
HEENT: Normocephalic and Atraumatic
Respiratory: Clear to Auscultation; Negative Wheezes or Rhonchi
Cardiac: Regular Rhythm and S1/S2; Negative Murmur
GI: Soft, Nontender, Nondistended and Normal Bowel Sounds
Musculoskeletal: No Clubbing, No Cyanosis and No Edema
Neuro: Awake
Psych: Calm
[2023-06-02 11:31] LABS: Glucose - Point of Care 181 mg/dl (70-99)
[2023-06-02] MEDS: NOVOLOG FLEXPEN-LOW RESISTANCE 1 UNITS SC (11:41)
[2023-06-02] MEDS: FLOMAX 0.400000000000000022 MG PO (17:12)
[2023-06-02] MEDS: PLAVIX 75 MG PO (17:12)
[2023-06-02] MEDS: JANUVIA 100 MG PO (17:14)
[2023-06-02] MEDS: PROTONIX 40 MG PO (17:14)
[2023-06-02] MEDS: LOVENOX 40 MG SC (17:14)
[2023-06-02 17:32] LABS: Glucose - Point of Care 115 mg/dl (70-99)
[2023-06-02 22:13] LABS: Glucose - Point of Care 117 mg/dl (70-99)
[2023-06-03] VITALS (8 sets, daily range): BP systolic 105–169; BP diastolic 55–90; PULSE 69–80; O2SAT 97; BMI 20.9
[2023-06-03 07:40] LABS: Glucose - Point of Care 115 mg/dl (70-99)
[2023-06-03] MEDS: NOVOLOG FLEXPEN-LOW RESISTANCE SC ×3 (08:13→17:04)
[2023-06-03] MEDS: COLACE 100 MG PO ×2 (08:38→20:34)
[2023-06-03] MEDS: MIRALAX 17 GRAMS PO (08:38)
[2023-06-03] MEDS: FLORINEF 0.100000000000000006 MG PO (08:38)
[2023-06-03] MEDS: ProAmatine 10 MG PO ×3 (08:38→17:07)
[2023-06-03] MEDS: DESENEX/MITRAZOL/ZEASORB 1 APPLIC TOPICAL ×2 (08:41→20:35)
[2023-06-03 09:14] LABS: Hematocrit 40.2 % (39.0-52.0); Hemoglobin 14.2 g/dL (13.0-18.0); Mean Corp Hgb Conc. 35.3 g/dL (33.0-37.0); Mean Corpuscular Hgb 30.2 pg (27.0-31.0); Mean Corpuscular Volume 85.5 fL (80.0-94.0); Mean Platelet Volume 10.1 fL (7.4-10.4); Platelet Count 212 10^3/uL (130-400); Red Cell Dist. Width 13.1 % (11.5-14.5); White Blood Cell Count 8.5 10^3/uL (4.8-10.8)
[2023-06-03 09:35] LABS: Blood Urea Nitrogen 12 mg/dl (9-20); Calcium 9.1 mg/dl (8.4-10.2); Carbon Dioxide 25 mmol/L (22-30); Chloride 101 mmol/L (98-107); Estimated Creatinine Clearance 71 ml/min; Glucose 115 mg/dl (70-99); Magnesium 2.1 mg/dl (1.6-2.3); Potassium 4.2 mmol/L (3.5-5.1); Sodium 135 mmol/L (135-145); eGFR > 60.00
--- NOTE | 2023-06-03 11:11 | W.PN.HOSP.TC ---
Today's Communication/Plan
-
dc planning
Assessment / Plan
Assessment / Plan
Physical Exam
-
General: No Apparent Distress
HEENT: Normocephalic and Atraumatic
Respiratory: Clear to Auscultation; Negative Wheezes or Rhonchi
Cardiac: Regular Rhythm and S1/S2;
GI: Soft, Nontender, Nondistended and Normal Bowel Sounds
Musculoskeletal: No Clubbing, No Cyanosis and No Edema
Neuro: Awake, followed commands.
Psych: Calm
pt is an 82 year old male
Falls at SNF--likely due to symptomatic Orthostatic hypotension --IVF did not help/cortisol,TSH,ECHO WNL--follow orthostatic VS BID--PT/OT--cont midodrine and allow permissive hypertension--compression therapy/abdominal binder--apprec
neuro--Florinef started--BP 169/80 and was 142/70 upon sitting.
# Hyperkalemia/hyponatremia�mild--cortisol WNL
#Dementia likely Alzheimer's type with behavioral disturbance and sundowning--Oriented to name and family members Patience, son Jimbo, [id number] Hoa at bedside
#BPH--Bladder scans--Hold Flomax if SBP<110--May continue condom cath
#CAD status post CABG and stents--Continue Plavix
#DM2--Recent HgbA1c 6.7% May 2023--Accu-Cheks with SSI--Continue Januvia 100 mg every afternoon
#GERD--Continue PPI
#Constipation history--Continue daily MiraLAX, Colace 100 mg twice daily
#status post cholecystitis with lap alistair 05/06/2023--Patient completed course of Zosyn and Augmentin--PT/OT/case management consult for SNF facility
# DVT prophylaxis--Subcu Lovenox
DNR per family at bedside , son, [id number]
Total time spent to see the patient, examine the patient on the floor, review data and lab results, discuss treatment plan with patient, nursing staff around 55 minutes.
Anticipated Discharge: Within 24 hours
Subjective/Interval History
-
Date of Service: June 03, 2023
No chest pain
No sob
No fevers
Objective Data
-
Labs:
Laboratory Results
06/03/23 06/03/23
08:10 08:11
WBC 8.5
Hgb 14.2
Hct 40.2
Plt Count 212
Sodium 135
Potassium 4.2
Chloride 101
Carbon Dioxide 25
BUN 12
Creatinine 0.7
Glucose 115 H
Calcium 9.1
Vital Signs:
Vital Signs
Temp Pulse Resp BP Pulse Ox
98.2 F 75 18 140/80 98
06/03/23 07:20 06/03/23 07:20 06/03/23 07:20 06/03/23 07:20 06/03/23 07:20
I&O
06/02/23 06/03/23 06/04/23
06:59 06:59 06:59
Intake Total 540 / 540 120 / 120
Balance 540 / 540 120 / 120
[2023-06-03 11:50] LABS: Glucose - Point of Care 104 mg/dl (70-99)
--- NOTE | 2023-06-03 14:37 | CM ---
Patient and seen bedside, discussed plan to return to [facility] later this week. Per Hospitalist, not clear for discharge at this time. CM sent Whit at [facility] TT with update. CM will continue to follow for discharge planning needs.
Plan; [facility] when stable.
[2023-06-03 16:44] LABS: Glucose - Point of Care 129 mg/dl (70-99)
[2023-06-03] MEDS: FLOMAX 0.400000000000000022 MG PO (17:05)
[2023-06-03] MEDS: JANUVIA 100 MG PO (17:05)
[2023-06-03] MEDS: LOVENOX 40 MG SC (17:06)
[2023-06-03] MEDS: PLAVIX 75 MG PO (17:07)
[2023-06-03] MEDS: PROTONIX 40 MG PO (17:07)
[2023-06-03 21:52] LABS: Glucose - Point of Care 124 mg/dl (70-99)
[2023-06-04] VITALS (9 sets, daily range): BP systolic 60–163; BP diastolic 44–83; PULSE 75–92; BMI 20.9
[2023-06-04 07:44] LABS: Glucose - Point of Care 123 mg/dl (70-99)
[2023-06-04] MEDS: NOVOLOG FLEXPEN-LOW RESISTANCE SC ×3 (08:16→17:17)
[2023-06-04] MEDS: MIRALAX 17 GRAMS PO (08:17)
[2023-06-04] MEDS: FLORINEF 0.100000000000000006 MG PO (08:17)
[2023-06-04] MEDS: ProAmatine 10 MG PO ×3 (08:17→17:18)
[2023-06-04] MEDS: DESENEX/MITRAZOL/ZEASORB 1 APPLIC TOPICAL ×2 (08:17→20:08)
[2023-06-04] MEDS: COLACE 100 MG PO (08:17)
--- NOTE | 2023-06-04 11:28 | W.PN.HOSP.TC ---
Addendum entered and electronically signed by Steff Ordoñez MD 06/04/23 13:18:
Them
Saw the patient again with in the room. Patient looks more dizzy and lethargic. Resting blood pressure 123 systolic. Will give 1 time bolus of normal saline. Patient has significant lethargy, dizziness and gait dysfunction. It is
reasonable to do MRI of the head to rule out stroke. agreeable. Will order MRI.
Original Note:
Today's Communication/Plan
-
.
Assessment / Plan
Assessment / Plan
Physical Exam
-
General: No Apparent Distress
HEENT: Normocephalic and Atraumatic
Respiratory: Clear to Auscultation; Negative Wheezes or Rhonchi
Cardiac: Regular Rhythm and S1/S2;
GI: Soft, Nontender, Nondistended and Normal Bowel Sounds
Musculoskeletal: No Clubbing, No Cyanosis and No Edema
Neuro: Awake, followed commands.
Psych: Calm
pt is an 82 year old male
Falls at SNF--likely due to symptomatic Orthostatic hypotension --IVF did not help/cortisol,TSH,ECHO WNL--follow orthostatic VS BID--PT/OT--cont midodrine and allow permissive hypertension--compression therapy/abdominal binder--apprec
neuro--Florinef started- will titrate up
-BP 169/80 and was 60/44 upon standing this morning
Check Catecholamine level in blood.
# Hyperkalemia/hyponatremia�mild--cortisol WNL
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
#BPH--Bladder scans--Hold Flomax if SBP<110--May continue condom cath
#CAD status post CABG and stents--Continue Plavix
#DM2--Recent HgbA1c 6.7% May 2023--Accu-Cheks with SSI--Continue Januvia 100 mg every afternoon
#GERD--Continue PPI
#Constipation history--Continue daily MiraLAX, Colace 100 mg twice daily
#status post cholecystitis with lap alistair 05/06/2023--Patient completed course of Zosyn and Augmentin--PT/OT/case management consult for SNF facility
# DVT prophylaxis--Subcu Lovenox
DNR per family at bedside , son, [id number]-.
Total time spent to see the patient, examine the patient on the floor, review data and lab results, discuss treatment plan with patient, nursing staff around 55 minutes.
Anticipated Discharge: > 48 hours
Subjective/Interval History
-
Date of Service: June 04, 2023
No chest pain
No sob
Objective Data
-
Vital Signs:
Vital Signs
Temp Pulse Resp BP Pulse Ox
97.5 F 72 18 135/72 98
06/04/23 07:30 06/04/23 07:30 06/04/23 07:30 06/04/23 07:30 06/04/23 07:30
I&O
06/03/23 06/04/23 06/05/23
06:59 06:59 06:59
Intake Total 720 / 720
Output Total 100 / 100
Balance 620 / 620
--- NOTE | 2023-06-04 12:11 | CM ---
CM reviewed chart, plan to return to [facility] when clear for discharge. Per Hospitalist, not clear for discharge at this time. CM sent Whit at [facility] a TT with update. CM will continue to follow for discharge planning needs.
Plan; [facility] when stable.
[2023-06-04 12:37] LABS: Glucose - Point of Care 114 mg/dl (70-99)
[2023-06-04] MEDS: NSS 500 IV (13:29)
[2023-06-04] MEDS: TYLENOL 650 MG PO (13:29)
[2023-06-04 16:22] LABS: Glucose - Point of Care 108 mg/dl (70-99)
[2023-06-04] MEDS: FLOMAX 0.400000000000000022 MG PO (17:18)
[2023-06-04] MEDS: LOVENOX 40 MG SC (17:18)
[2023-06-04] MEDS: PLAVIX 75 MG PO (17:18)
[2023-06-04] MEDS: JANUVIA 100 MG PO (17:18)
[2023-06-04] MEDS: PROTONIX 40 MG PO (17:19)
--- NOTE | 2023-06-04 19:14 | PTCARENOTE ---
Around 1330 today, pt had an episode of sleepiness, difficulty swallowing and arousable but falls back to sleep. Dr. Ordoñez at the bedside. IV bolus ordered and given and pt sent to MRI of the brain. After bolus, pt much more alert, back to previous
assessment.
[2023-06-04] MEDS: FLORINEF 0.0500000000000000028 MG PO (20:08)
[2023-06-04] MEDS: COLACE PO (20:08)
[2023-06-04 21:20] LABS: Glucose - Point of Care 127 mg/dl (70-99)
[2023-06-05 03:10] VITALS: BP 150/71
[2023-06-05 07:28] LABS: Glucose - Point of Care 111 mg/dl (70-99)
[2023-06-05 07:30] VITALS: BP 115/62
[2023-06-05] MEDS: ProAmatine 10 MG PO ×3 (08:32→17:38)
[2023-06-05] MEDS: ANTIVERT 12.5 MG PO ×2 (08:32→20:29)
[2023-06-05] MEDS: MIRALAX 17 GRAMS PO (08:32)
[2023-06-05] MEDS: NOVOLOG FLEXPEN-LOW RESISTANCE SC ×2 (08:32→17:36)
[2023-06-05] MEDS: COLACE 100 MG PO ×2 (08:32→20:30)
[2023-06-05] MEDS: FLORINEF 0.200000000000000011 MG PO (08:32)
[2023-06-05] MEDS: DESENEX/MITRAZOL/ZEASORB 1 APPLIC TOPICAL ×2 (08:33→20:30)
[2023-06-05] MEDS: TYLENOL 650 MG PO ×2 (10:41→16:30)
[2023-06-05 11:15] VITALS: BP 100/57; BP 126/61; BP 75/50; PULSE 69; PULSE 76; PULSE 84
--- NOTE | 2023-06-05 11:31 | W.PN.HOSP.TC ---
Today's Communication/Plan
-
.
Assessment / Plan
Assessment / Plan
Physical Exam
-
General: No Apparent Distress
HEENT: Normocephalic and Atraumatic
Respiratory: Clear to Auscultation; Negative Wheezes or Rhonchi
Cardiac: Regular Rhythm and S1/S2;
GI: Soft, Nontender, Nondistended and Normal Bowel Sounds
Musculoskeletal: No Clubbing, No Cyanosis and No Edema
Neuro: Awake, followed commands.
Psych: Calm
pt is an 82 year old male
Falls at SNF--likely due to symptomatic Orthostatic hypotension --IVF did not help/cortisol,TSH,ECHO WNL--follow orthostatic VS BID--PT/OT--cont midodrine and allow permissive hypertension--compression therapy/abdominal binder--apprec
neuro--Florinef started- will titrate up
Checked Catecholamine level in blood, results pending.
MRI brain c/w chronic changes/moderate volume loss, moderate leukoaraiosis, no acute stroke
Will try meclizine pRN
# Hyperkalemia/hyponatremia�mild--cortisol WNL
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
#BPH--Bladder scans--Hold Flomax if SBP<110--May continue condom cath
#CAD status post CABG and stents--Continue Plavix
#DM2--Recent HgbA1c 6.7% May 2023--Accu-Cheks with SSI--Continue Januvia 100 mg every afternoon
#GERD--Continue PPI
#Constipation history--Continue daily MiraLAX, Colace 100 mg twice daily
#status post cholecystitis with lap alistair 05/06/2023--Patient completed course of Zosyn and Augmentin--PT/OT/case management consult for SNF facility
# DVT prophylaxis--Subcu Lovenox
DNR per family at bedside , son, [id number]-.
Total time spent to see the patient, examine the patient on the floor, review data and lab results, discuss treatment plan with patient, family, nursing staff around 55 minutes.
Anticipated Discharge: 24 - 48 hours
Subjective/Interval History
-
Date of Service: June 05, 2023
No chest pain
No sob
Objective Data
-
Vital Signs:
Vital Signs
Temp Pulse Resp BP Pulse Ox
97.9 F 78 18 115/62 97
06/05/23 07:30 06/05/23 07:30 06/05/23 07:30 06/05/23 07:30 06/05/23 08:15
I&O
06/04/23 06/05/23 06/06/23
06:59 06:59 06:59
Intake Total 720 / 720 980 / 980
Output Total 100 / 100
Balance 620 / 620 980 / 980
[2023-06-05 12:29] LABS: Glucose - Point of Care 173 mg/dl (70-99)
[2023-06-05] MEDS: NOVOLOG FLEXPEN-LOW RESISTANCE 1 UNITS SC (12:35)
[2023-06-05 15:00] VITALS: BP 113/60
[2023-06-05 17:29] LABS: Glucose - Point of Care 95 mg/dl (70-99)
[2023-06-05] MEDS: PROTONIX 40 MG PO (17:38)
[2023-06-05] MEDS: LOVENOX 40 MG SC (17:38)
[2023-06-05] MEDS: PLAVIX 75 MG PO (17:38)
[2023-06-05] MEDS: FLOMAX 0.400000000000000022 MG PO (17:38)
[2023-06-05] MEDS: JANUVIA 100 MG PO (17:38)
[2023-06-05 20:19] VITALS: BP 105/63; BP 167/76; PULSE 67; PULSE 71
[2023-06-05 21:35] LABS: Glucose - Point of Care 105 mg/dl (70-99)
[2023-06-05 22:57] VITALS: BP 149/83
[2023-06-06] VITALS (8 sets, daily range): BP systolic 85–155; BP diastolic 52–76; PULSE 68–86; O2SAT 97; BMI 20.4
[2023-06-06 08:33] LABS: Glucose - Point of Care 103 mg/dl (70-99)
[2023-06-06] MEDS: NOVOLOG FLEXPEN-LOW RESISTANCE SC ×3 (08:42→18:53)
[2023-06-06] MEDS: COLACE 100 MG PO (10:05)
[2023-06-06] MEDS: ANTIVERT 12.5 MG PO ×2 (10:06→20:17)
[2023-06-06] MEDS: FLORINEF 0.200000000000000011 MG PO (10:06)
[2023-06-06] MEDS: ProAmatine 10 MG PO ×3 (10:08→18:54)
[2023-06-06] MEDS: MIRALAX 17 GRAMS PO (10:14)
[2023-06-06] MEDS: DESENEX/MITRAZOL/ZEASORB 1 APPLIC TOPICAL ×2 (10:14→20:18)
[2023-06-06 12:36] LABS: Glucose - Point of Care 139 mg/dl (70-99)
--- NOTE | 2023-06-06 14:09 | PTCARENOTE ---
was unable to get a standing BP on pt this morning. Did not tolerate standing.
--- NOTE | 2023-06-06 14:19 | W.PN.HOSP.TC ---
Today's Communication/Plan
-
dc planning
Assessment / Plan
Assessment / Plan
Physical Exam
-
General: No Apparent Distress
HEENT: Normocephalic and Atraumatic
Respiratory: Clear to Auscultation; Negative Wheezes or Rhonchi
Cardiac: Regular Rhythm and S1/S2;
GI: Soft, Nontender, Nondistended and Normal Bowel Sounds
Musculoskeletal: No Clubbing, No Cyanosis and No Edema
Neuro: Awake, followed commands.
Psych: Calm
pt is an 82 year old male
# Failure to thrive
Acute on chronic dizziness
Falls at SNF--likely due to symptomatic Orthostatic hypotension and failure to thrive
--IVF did not help/cortisol,TSH,ECHO WNL--follow orthostatic VS BID--PT/OT--cont midodrine and allow permissive hypertension--compression therapy/abdominal binder--apprec neuro--Florinef started- will titrate up
Checked Catecholamine level in blood, results pending.
MRI brain c/w chronic changes/moderate volume loss, moderate leukoaraiosis, no acute stroke.
c/w BID meclizine
# Hyperkalemia/hyponatremia�mild--cortisol WNL
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
#BPH--Bladder scans--Hold Flomax if SBP<110--May continue condom cath
#CAD status post CABG and stents--Continue Plavix
#DM2--Recent HgbA1c 6.7% May 2023--Accu-Cheks with SSI--Continue Januvia 100 mg every afternoon
#GERD--Continue PPI
#Constipation history--Continue daily MiraLAX, Colace 100 mg twice daily
#status post cholecystitis with lap alistair 05/06/2023--Patient completed course of Zosyn and Augmentin--PT/OT/case management consult for SNF facility
# DVT prophylaxis--Subcu Lovenox
DNR per family at bedside , son, [id number]-.
Total time spent to see the patient, examine the patient on the floor, review data and lab results, discuss treatment plan with patient, family, nursing staff around 57 minutes.
Anticipated Discharge: Within 24 hours
Subjective/Interval History
-
Date of Service: June 06, 2023
No sob, no chest pain
No fevers
Objective Data
-
Vital Signs:
Vital Signs
Temp Pulse Resp BP Pulse Ox
97.5 F 69 18 141/76 99
06/06/23 12:00 06/06/23 12:57 06/06/23 12:00 06/06/23 12:57 06/06/23 12:00
I&O
06/05/23 06/06/23 06/07/23
06:59 06:59 06:59
Intake Total 980 / 980 240 / 240
Balance 980 / 980 240 / 240
--- NOTE | 2023-06-06 16:04 | CM ---
CM met with Hospitalist and patients , discussed concern of patient not being able to participate in therapy due to blood pressure. CM will send updated clinicals to [facility] to see if they would be able to accept patient for SNF. Per
, patient was previously living at home, ambulating independently before [facility] stay. CM will continue to follow for discharge planning needs.
Plan; Clinical updates sent to [facility] to see if can accept patient for SNF return with current medical status.
[2023-06-06 17:58] LABS: Glucose - Point of Care 113 mg/dl (70-99)
[2023-06-06] MEDS: FLOMAX 0.400000000000000022 MG PO (18:53)
[2023-06-06] MEDS: JANUVIA 100 MG PO (18:53)
[2023-06-06] MEDS: LOVENOX 40 MG SC (18:53)
[2023-06-06] MEDS: PROTONIX 40 MG PO (18:54)
[2023-06-06] MEDS: PLAVIX 75 MG PO (18:54)
[2023-06-06] MEDS: COLACE PO ×2 (20:17→20:26)
[2023-06-06 21:54] LABS: Glucose - Point of Care 162 mg/dl (70-99)
[2023-06-07 03:00] VITALS: BP 162/79
[2023-06-07 06:00] VITALS: BMI 20.6
[2023-06-07 07:46] VITALS: BP 147/75
[2023-06-07 08:13] LABS: Glucose - Point of Care 127 mg/dl (70-99)
[2023-06-07 09:37] VITALS: BP 131/59; BP 167/80; PULSE 77
--- NOTE | 2023-06-07 10:04 | W.PN.HOSP.TC ---
Addendum entered and electronically signed by Steff Ordoñez MD 06/07/23 14:35:
Addendum
Seen and examined again.
Talked to the family in the room.
Discussed discharge planning
Discussed with counter caser
Total discharge time spent to see the patient, examine the patient on the floor, review data and lab results, discuss discharge plan with patient, family, arborist representative, nursing staff around 65 minutes.
Original Note:
Today's Communication/Plan
-
Await CM to help with dc planning
Assessment / Plan
Assessment / Plan
Physical Exam
-
General: No Apparent Distress
HEENT: Normocephalic and Atraumatic
Respiratory: Clear to Auscultation; Negative Wheezes or Rhonchi
Cardiac: Regular Rhythm and S1/S2;
GI: Soft, Nontender, Nondistended and Normal Bowel Sounds
Musculoskeletal: No Clubbing, No Cyanosis and No Edema
Neuro: Awake, followed commands.
Psych: Calm
pt is an 82 year old male
# Failure to thrive
Acute on chronic dizziness
Falls at SNF--likely due to symptomatic Orthostatic hypotension and failure to thrive
--IVF did not help/cortisol,TSH,ECHO WNL--follow orthostatic VS BID--PT/OT--cont midodrine and allow permissive hypertension--compression therapy/abdominal binder--apprec neuro--Florinef started- will titrate up
Checked Catecholamine level in blood, results pending.
MRI brain c/w chronic changes/moderate volume loss, moderate leukoaraiosis, no acute stroke.
c/w BID meclizine
# Hyperkalemia/hyponatremia�mild--cortisol WNL
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
#BPH--Bladder scans--Hold Flomax if SBP<110--May continue condom cath
#CAD status post CABG and stents--Continue Plavix
#DM2--Recent HgbA1c 6.7% May 2023--Accu-Cheks with SSI--Continue Januvia 100 mg every afternoon
#GERD--Continue PPI
#Constipation history--Continue daily MiraLAX, Colace 100 mg twice daily
#status post cholecystitis with lap alistair 05/06/2023--Patient completed course of Zosyn and Augmentin--PT/OT/case management consult for SNF facility
# DVT prophylaxis--Subcu Lovenox
DNR per family at bedside , son, [id number]-.
Total time spent to see the patient, examine the patient on the floor, review data and lab results, discuss treatment plan with patient, family, nursing staff around 47 minutes.
Anticipated Discharge: Today
Subjective/Interval History
-
Date of Service: June 07, 2023
He feels less dizzy
No sob
No chest pain
Objective Data
-
Vital Signs:
Vital Signs
Temp Pulse Resp BP Pulse Ox
97.5 F 68 16 147/75 97
06/07/23 07:46 06/07/23 07:46 06/07/23 07:46 06/07/23 07:46 06/07/23 07:46
I&O
06/06/23 06/07/23 06/08/23
06:59 06:59 06:59
Intake Total 240 / 240 480 / 480
Balance 240 / 240 480 / 480
[2023-06-07] MEDS: NOVOLOG FLEXPEN-LOW RESISTANCE SC ×3 (10:10→16:48)
[2023-06-07] MEDS: ProAmatine 10 MG PO ×3 (10:11→17:50)
[2023-06-07] MEDS: COLACE 100 MG PO (10:12)
[2023-06-07] MEDS: MIRALAX PO (10:12)
[2023-06-07] MEDS: FLORINEF 0.200000000000000011 MG PO (10:12)
[2023-06-07] MEDS: ANTIVERT 12.5 MG PO (10:12)
[2023-06-07] MEDS: DESENEX/MITRAZOL/ZEASORB 1 APPLIC TOPICAL (10:13)
[2023-06-07 11:09] VITALS: BP 157/73
[2023-06-07 11:58] LABS: Glucose - Point of Care 127 mg/dl (70-99)
--- NOTE | 2023-06-07 12:29 | CM ---
Addendum entered by Cyndee Flanagan 06/07/23 13:30:
Ambulance berry picker scheduled for 6:30 PM
IMM benefit explained to patient's ; form signed
Addendum entered by Cyndee Flanagan 06/07/23 12:40:
Transport via Ambulance to be scheduled for 4 PM or after today
Medication list faxed to #[phone] per request of Whit Yo @ [facility]
Original Note:
Plan: return to [facility] this afternoon
Report: # [phone]
Fax #: [phone]
--- NOTE | 2023-06-07 14:20 | W.DCSUMMARY ---
Discharge Summary
Discharge Data
Date of Admission: 05/30/23
Date of Discharge: 06/07/23
-
Pending Results: No
Hospital Course
82 years old male was sent to the emergency room after experiencing weakness and orthostatic hypotension and care home facility [facility]. Patient had history of chronic dizziness. He had history of sepsis in May 2023 due to
cholecystitis. Patient was sent to rehab after that. He had history of dementia, likely Alzheimer's with coronary artery disease, diabetes and primary hypertension. Patient was started on midodrine at the care home facility and that was
increased without improvement in orthostatic hypotension. He was evaluated by neurologist. Midodrine dose was increased to 10 mg 3 times daily with application abdominal binder and RAJIV stockings. He was started on fludrocortisone 0.1 mg and later
increased to 0.2 mg after few days. Patient continued to experience postural hypotension and sometimes associated with dizziness. He was given meclizine with some improvement. Echocardiogram showed normal left ventricular ejection fraction of 55
to 60% with mild aortic insufficiency. Brain imaging studies including magnetic resonance imaging showed no acute intracranial process with moderate volume loss, moderate leukoaraiosis with signs of cerebral amyloid angiopathy. Patient did not
have fever or leukocytosis. He did not have chest pain or shortness of breath. No hypoxia. Cortisol and thyroid-stimulating hormone levels were normal. He continued to have limited participation in physical therapy due to symptomatic postural
hypotension and likely diabetic neuropathy. Case management was involved in discharge planning. Family wanted to send the patient back to shelter to give him another chance for possible rehabilitation before considering palliative care.
Patient was advised to follow with his playground official also. Patient was discharged in a stable condition.
Discharge Plan
-
Patient Disposition: Alf/SNF
Discharge Diagnosis/Procedures: Orthostatic symptomatic hypotension
Dementia likely Alzheimer
Chronic dizziness
Coronary artery disease
Diabetes/neuropathy
Diet: Diabetic, Carb Controlled
Referrals:
Tereso Teresa MD [Non-Admitting Privileges] - in one to two weeks
Ángela Springer DO [Family Provider] - in one to two weeks
Prescriptions:
New
midodrine 5 mg Tablet
10 mg PO TID@0800,1300,1800 Qty: 90 0RF
meclizine 12.5 mg Tablet
12.5 mg PO BID Qty: 60 0RF
fludrocortisone 0.1 mg Tablet
0.2 mg PO DAILY Qty: 30 0RF
Continued
clopidogrel 75 mg tablet
75 mg PO QPM
tamsulosin 0.4 mg capsule
0.4 mg PO QPM
lansoprazole 30 mg capsule,delayed release(DR/EC)
30 mg PO QPM
nitroglycerin 0.4 mg tablet, sublingual
0.4 mg sublingual [id number] PRN (Reason: chest pain)
azelastine 137 mcg (0.1 %) aerosol,spray
1 spray INTRANASAL BID PRN (Reason: allergies)
Januvia 100 mg tablet
100 mg PO QPM
polyethylene glycol 3350 [HealthyLax] 17 gram Powder In Packet
17 g PO DAILY Qty: 0 0RF
docusate sodium 100 mg Capsule
100 mg PO BID Qty: 0 0RF
magnesium hydroxide [Milk of Magnesia] 400 mg/5 mL Suspension
30 ml PO DAILYPRN PRN (Reason: if no BM on day 4)
bisacodyl [Dulcolax (bisacodyl)] 10 mg Suppository
10 mg ND DAILY PRN (Reason: constipation)
Fleet Enema 19-7 gram/118 mL Enema
118 ml ND DAILY PRN (Reason: constipation)
acetaminophen 325 mg tablet
650 mg PO Q4HPRN MDD 3000 mg PRN (Reason: mild pain/fever>100)
Discontinued
midodrine 10 mg Tablet
10 mg PO BID
Rx Instructions:
05/28/2023, Hold for SBP>150.
Discharge Orders:
Discharge Patient (As Directed); Ordered 06/07/23
Ordered By: Steff Ordoñez
Discharge Date and Time
Print Language: DOMINICAN
[2023-06-07 15:00] VITALS: BP 157/80
[2023-06-07 16:33] LABS: Glucose - Point of Care 123 mg/dl (70-99)
[2023-06-07] MEDS: FLOMAX 0.400000000000000022 MG PO (17:43)
[2023-06-07] MEDS: JANUVIA 100 MG PO (17:44)
[2023-06-07] MEDS: LOVENOX 40 MG SC (17:44)
[2023-06-07] MEDS: PLAVIX 75 MG PO (17:44)
[2023-06-07] MEDS: PROTONIX 40 MG PO (17:44)
== END 2023-06-07 19:00 | DRG 312 ==
LOC: 4 WEST ACU 16:54
PROVIDERS: Clinical Nurse Specialist Family Health; Physician Assistant; ADMITTING PHYSICIAN Internal Medicine; ATTENDING PHYSICIAN Internal Medicine; CONSULT PHYSICIAN Student in an Organized Health Care Education/Training Program; EMERGENCY PHYSICIAN Emergency Medicine; FAMILY PHYSICIAN Student in an Organized Health Care Education/Training Program
DX: I95.1 Orthostatic hypotension (principal); E87.1 Hypo-osmolality and hyponatremia; F02.818 Dementia in other diseases classified elsewhere, unspecified severity, with other behavioral disturbance; F05 Delirium due to known physiological condition; E87.5 Hyperkalemia; G30.9 Alzheimer's disease, unspecified; I25.10 Atherosclerotic heart disease of native coronary artery without angina pectoris; I10 Essential (primary) hypertension; E11.40 Type 2 diabetes mellitus with diabetic neuropathy, unspecified; R62.7 Adult failure to thrive; N40.1 Benign prostatic hyperplasia with lower urinary tract symptoms; R35.0 Frequency of micturition; K21.9 Gastro-esophageal reflux disease without esophagitis; Z66 Do not resuscitate; Z79.84 Long term (current) use of oral hypoglycemic drugs; Z79.02 Long term (current) use of antithrombotics/antiplatelets
CPT/HCPCS: 70450; 70551; 80048; 80053; 81003; 81015; 82384; 82533; 82962; 83735; 84443; 84484; 85025; 85027; 87811; 93005; 93306; 96360; 97163; 97167; 97530; 99285

== ENCOUNTER 2023-06-12 12:59 | Emergency (ER) | payer MEDICARE, OTHER, SELFPAY ==
[2023-06-12 13:01] VITALS: BP 134/69
[2023-06-12 13:02] VITALS: BP 134/69
--- NOTE | 2023-06-12 13:36 | ED.GENMED ---
History of Present Illness
General
Chief Complaint: Fall
Source: patient and records
Exam Limitations: dementia
Time Seen by Provider: 06/12/23 13:04
Travel History
Have you had any contact with someone who has COVID-19?: Unable to Answer
Do you have any symptoms of coronavirus? Fever > 100 degrees, chills, cough, shortness of breath, sore throat, loss of taste or smell, muscle aches, or headache?: Unable to Answer
History of Present Illness
History of Present Illness:
This is an 82yo male who presents after an unwitnessed fall. pt states that he fell. he thinks he may have hit his head. Patient denies pain in the extremities. No neck pain. No back pain. Does have a noted history of memory loss
Past History
Past History
ED Past Medical History: CAD, GERD, NIDDM and Other (Cellulitis, memory loss)
ED Past Surgical History: Appendectomy and Cardiac
Social History
Tobacco: Non-smoker
Phy Exam
Physical Exam
Physical Exam:
CONSTITUTIONAL Patient alert and oriented to person, place Well-appearing. Vital signs reviewed.
HEAD atraumatic, normocephalic.
EYES eyelids normal to inspection, Extraocular muscles intact, Conjunctiva normal, Sclera normal.
NECK normal range of motion, Trachea midline, no jugular venous distention. No midline or paracervical tenderness
RESPIRATORY CHEST No respiratory distress noted, Chest expansion equal
ABDOMEN abdomen nontender, Bowel sounds normal. No distention.
BACK normal inspection, no obvious deformities. No paraspinal or midline tenderness
UPPER EXTREMITY range of motion normal, Motor strength normal, no cyanosis, no edema.
LOWER EXTREMITY range of motion normal, Motor strength normal, no cyanosis, no edema. Healing left knee abrasion
NEURO Speech normal, No focal motor deficits, Cranial Nerves intact to screening exam.
Course
Orders/Labs/Results
Orders:
Orders
06/12/23 13:10
CT Head W/o Iv Contrast Urgent
Comment:
Reason For Exam: fall
Vital Signs
Initial and Last Documented VS:
Initial Vital Signs
BP
134/69
06/12/23 13:01
Last Documented Vital Signs
Temp Pulse Resp BP Pulse Ox
98.0 F 73 18 168/79 97
06/12/23 13:02 06/12/23 16:15 06/12/23 16:15 06/12/23 16:00 06/12/23 16:15
MDM/Problems Addressed
MDM/Problems Addressed:
Fall, head injury
*Pulse Oximetry
Patient hypoxic: no
*Critical Care Note
Total Time (30-74mins, 75-104mins- exclusive of procedures): Not Applicable
Data Reviewed
Review of Other/Old Records Reveals: Discharge Summary (Prior discharge summary reviewed revealing history of orthostatic hypotension and chronic dizziness)
Source: patient and records
Further Testing Considered But Not Given:
Consider C-spine imaging but no midline tenderness. Considered pelvic imaging but able to flex and internally and externally rotate both hips
ED Attending Note
-
Portions of this chart may have been created with voice recognition software.� Occasional wrong word or��sound alike� substitutions may have occurred due to the inherent limitations of voice recognition software.
Discharge Plan
Departure
Patient Disposition: Home (Routine Discharge)
Date of Disposition: 06/12/23
Time of Disposition: 16:40
Patient with high blood pressure during this ER visit?: Yes
Discharge Problem:
Fall, Head injury
Instructions: Head Injury in Adults (DC), BLOOD PRESSURE
Prescriptions:
No Action
clopidogrel 75 mg tablet
75 mg PO QPM
tamsulosin 0.4 mg capsule
0.4 mg PO QPM
lansoprazole 30 mg capsule,delayed release(DR/EC)
30 mg PO QPM
nitroglycerin 0.4 mg tablet, sublingual
0.4 mg sublingual [id number] PRN (Reason: chest pain)
azelastine 137 mcg (0.1 %) aerosol,spray
1 spray INTRANASAL BID PRN (Reason: allergies)
Januvia 100 mg tablet
100 mg PO QPM
polyethylene glycol 3350 [HealthyLax] 17 gram Powder In Packet
17 g PO DAILY Qty: 0 0RF
docusate sodium 100 mg Capsule
100 mg PO BID Qty: 0 0RF
magnesium hydroxide [Milk of Magnesia] 400 mg/5 mL Suspension
30 ml PO DAILYPRN PRN (Reason: if no BM on day 4)
bisacodyl [Dulcolax (bisacodyl)] 10 mg Suppository
10 mg IA DAILYPRN PRN (Reason: constipation)
Fleet Enema 19-7 gram/118 mL Enema
118 ml IA DAILYPRN PRN (Reason: constipation)
acetaminophen 325 mg tablet
650 mg PO Q4HPRN MDD 3000 mg PRN (Reason: mild pain/fever>100)
midodrine 5 mg Tablet
10 mg PO TID@0800,1300,1800 Qty: 90 0RF
meclizine 12.5 mg Tablet
12.5 mg PO BID Qty: 60 0RF
fludrocortisone 0.1 mg Tablet
0.2 mg PO DAILY Qty: 30 0RF
methylprednisolone [Medrol (Umair)] 4 mg Tablets,Dose Pack
0 mg PO PER PKG DIR
diclofenac sodium [Voltaren] 1 % Gel
4 g TOPICAL DAILY
Referrals:
Ángela Springer DO [Family Provider] -
Activity Restrictions/Additional Instructions:
Please see your doctor in the next 3 to 5 days for follow-up and reevaluation. Return immediately for vomiting, changes in mentation, weakness of any kind or any other concerns.
Interventions
Interventions:
*Risk Screen - Suicide Last Done: 06/12/23 13:02
*General Assessment Last Done: 06/12/23 13:02
*Neglect/Abuse Screening Last Done: 06/12/23 13:02
*ED COVID-19 Vaccine History Last Done: 06/12/23 13:02
ED-Musculoskeletal Assessment Last Done: 06/12/23 13:02
ED- Neurological Assessment Last Done: 06/12/23 13:02
ED-Skin Assessment Last Done: 06/12/23 13:02
Discharge Date and Time
Print Language: IVORIAN
[2023-06-12 14:00] VITALS: BP 140/69
[2023-06-12 15:00] VITALS: BP 146/68
[2023-06-12 15:37] VITALS: BP 141/93
[2023-06-12 16:00] VITALS: BP 168/79
== END 2023-06-12 19:17 | disposition home or self-care (01) ==
LOC: EMR 12:59
PROVIDERS: EMERGENCY PHYSICIAN Emergency Medicine; FAMILY PHYSICIAN Student in an Organized Health Care Education/Training Program; OTHER PHYSICIAN Family Medicine
DX: S09.90XA Unspecified injury of head, initial encounter (principal); W19.XXXA Unspecified fall, initial encounter; I10 Essential (primary) hypertension
CPT/HCPCS: 99284; 70450

== ENCOUNTER 2023-06-13 10:57 | Emergency (ER) | payer MEDICARE, OTHER, SELFPAY ==
[2023-06-13 11:08] VITALS: BP 108/57
--- NOTE | 2023-06-13 11:50 | ED.GENMED ---
History of Present Illness
General
Chief Complaint: Change in Mental Status
Time Seen by Provider: 06/13/23 11:21
Travel History
Have you had any contact with someone who has COVID-19?: No
Do you have any symptoms of coronavirus? Fever > 100 degrees, chills, cough, shortness of breath, sore throat, loss of taste or smell, muscle aches, or headache?: No
History of Present Illness
History of Present Illness:
82-year-old male with history of Parkinson's presents to the emergency department due to altered mental status. Patient apparently had a fall yesterday and was seen in this emergency department with a negative head CT. He was admitted to this
hospital recently at which time his mental status changes were felt to be in part due to orthostasis from Parkinson's. Family is concerned for his rather precipitous decline over the past 6 weeks, he is essentially nonambulatory due to severe
weakness.
Past History
Past History
ED Past Medical History: CAD, GERD, NIDDM and Other (Cellulitis, memory loss)
ED Past Surgical History: Appendectomy and Cardiac
Social History
Tobacco: Non-smoker
Review of Systems
Review of Systems
Allergies reviewed?: Yes
All Other Systems: ROS reviewed and negative except as documented in HPI and ROS
Phy Exam
Physical Exam
Physical Exam:
GEN: Well appearing, NAD, WDWN
HEENT: Oral mucosa moist, no scleral icterus, no nasal congestion
Cardiac: Regular rate
Lung: No respiratory distress, no tachypnea
MSK: No gross deformity or injuries
Skin: Good color, no pallor or jaundice, no rashes
Neuro: Alert and oriented to self and place, disoriented to time; CN II-XII grossly intact. Diffusely weak to all 4 extremities, requires assistance with ambulation
Psych: Calm, cooperative
Course
Orders/Labs/Results
Orders:
Orders
06/13/23 11:42
Complete Blood Count/With Diff Urgent
Comprehensive Metabolic Panel Urgent
TSH Reflex To Free T4 Urgent
Urinalysis Reflex To Culture Urgent
Date Specimen was Collected: 06/13/23
Time Specimen was Collected: 11:41
06/13/23 12:38
Orthostatic VS- Treatment ONCE
Abnormal Lab Results
06/13/23
11:42
RBC 4.56 L 10^6/uL
(4.70-6.10)
Abs Immat Gran (auto) 0.1 H 10^3/uL
(0-0.05)
Absolute Neuts (auto) 7.1 H 10^3/uL
(1.4-6.5)
Absolute Lymphs (auto) 0.5 L 10^3/uL
(1.2-3.4)
Absolute Monos (auto) 0.9 H 10^3/uL
(0.1-0.6)
Immature Gran % 0.6 H %
(0-0.5)
Neutrophils % 81.8 H %
(42.2-75.2)
Lymphocytes % 5.7 L %
(20.5-51.1)
Monocytes % 9.9 H %
(1.7-9.3)
Sodium 134 L mmol/L
(135-145)
Glucose 101 H mg/dl
(70-99)
06/13/23 11:42
06/13/23 11:42
Vital Signs
Initial and Last Documented VS:
Initial Vital Signs
Temp Pulse Resp BP Pulse Ox
98.2 F 75 16 108/57 98
06/13/23 11:08 06/13/23 11:08 06/13/23 11:08 06/13/23 11:08 06/13/23 11:08
Last Documented Vital Signs
Temp Pulse Resp BP Pulse Ox
98.2 F 75 16 108/57 99
06/13/23 11:08 06/13/23 11:08 06/13/23 11:08 06/13/23 11:08 06/13/23 14:15
MDM/Problems Addressed
MDM/Problems Addressed:
Neurology consulted due to the precipitous decline in this patient's functionality. It appears that this is all related to his underlying Parkinson/dementia. Did recommend that we discontinue use of meclizine for his dizziness as this is likely
detrimental. Discharged stable condition back to [facility], no indication for repeat neuroimaging today
*Critical Care Note
Total Time (30-74mins, 75-104mins- exclusive of procedures): Not Applicable
ED Attending Note
-
Portions of this chart may have been created with voice recognition software.� Occasional wrong word or��sound alike� substitutions may have occurred due to the inherent limitations of voice recognition software.
Discharge Plan
Departure
Patient Disposition: Home (Routine Discharge)
Date of Disposition: 06/13/23
Time of Disposition: 14:12
Patient with high blood pressure during this ER visit?: No
Discharge Problem:
Dementia due to Parkinson's disease, Orthostasis
Prescriptions:
No Action
clopidogrel 75 mg tablet
75 mg PO QPM
tamsulosin 0.4 mg capsule
0.4 mg PO QPM
lansoprazole 30 mg capsule,delayed release(DR/EC)
30 mg PO QPM
nitroglycerin 0.4 mg tablet, sublingual
0.4 mg sublingual [id number] PRN (Reason: chest pain)
azelastine 137 mcg (0.1 %) aerosol,spray
1 spray INTRANASAL BID PRN (Reason: allergies)
Januvia 100 mg tablet
100 mg PO QPM
polyethylene glycol 3350 [HealthyLax] 17 gram Powder In Packet
17 g PO DAILY Qty: 0 0RF
docusate sodium 100 mg Capsule
100 mg PO BID Qty: 0 0RF
magnesium hydroxide [Milk of Magnesia] 400 mg/5 mL Suspension
30 ml PO DAILYPRN PRN (Reason: if no BM on day 4)
bisacodyl [Dulcolax (bisacodyl)] 10 mg Suppository
10 mg NV DAILYPRN PRN (Reason: constipation)
Fleet Enema 19-7 gram/118 mL Enema
118 ml NV DAILYPRN PRN (Reason: constipation)
acetaminophen 325 mg tablet
650 mg PO Q4HPRN MDD 3000 mg PRN (Reason: mild pain/fever>100)
meclizine 12.5 mg Tablet
12.5 mg PO BID Qty: 60 0RF
fludrocortisone 0.1 mg Tablet
0.2 mg PO DAILY Qty: 30 0RF
methylprednisolone [Medrol (Umair)] 4 mg Tablets,Dose Pack
0 mg PO PER PKG DIR
diclofenac sodium [Voltaren] 1 % Gel
4 g TOPICAL DAILY
midodrine 5 mg tablet
10 mg PO TID
Rx Instructions:
06/13/2023, hold for SBP>170.
Referrals:
Rui Iqbal MD [Family Provider] -
Activity Restrictions/Additional Instructions:
STOP MECLIZINE
Interventions
Interventions:
*Risk Screen - Suicide Last Done: 06/13/23 12:23
*General Assessment Last Done: 06/13/23 12:23
*Neglect/Abuse Screening Last Done: 06/13/23 12:23
ED- Fall Risk Assessment Last Done: 06/13/23 12:23
*ED COVID-19 Vaccine History Last Done: 06/13/23 11:08
*Nursing Disposition Last Done: 06/13/23 14:15
ED- Pulmonary Assessment Last Done: 06/13/23 14:15
ED-Psychological Assessment Last Done: 06/13/23 14:15
ED- Neurological Assessment Last Done: 06/13/23 12:23
ED- Cardiac Assessment Last Done: 06/13/23 14:15
ED Swallowing Screen Last Done: 06/13/23 12:23
Discharge Date and Time
Discharge Date/Time: 06/13/23 15:47
Print Language: VIET[place]ESE
[2023-06-13 12:03] LABS: % Basophils 0.3 % (0-2); % Eosinophils 1.7 % (0-6); % Immature Granulocytes 0.6 % (0-0.5); % Lymphocytes 5.7 % (20.5-51.1); % Monocytes 9.9 % (1.7-9.3); % Neutrophils 81.8 % (42.2-75.2); Absolute Eosinophils 0.2 10^3/uL (0-0.7); Absolute Immature Granulocytes 0.1 10^3/uL (0-0.05); Absolute Lymphocytes 0.5 10^3/uL (1.2-3.4); Absolute Monocytes 0.9 10^3/uL (0.1-0.6); Absolute Neutrophils 7.1 10^3/uL (1.4-6.5); Hematocrit 39.8 % (39.0-52.0); Hemoglobin 13.9 g/dL (13.0-18.0); Mean Corp Hgb Conc. 34.9 g/dL (33.0-37.0); Mean Corpuscular Hgb 30.5 pg (27.0-31.0); Mean Corpuscular Volume 87.3 fL (80.0-94.0); Mean Platelet Volume 9.4 fL (7.4-10.4); Nucleated Red Blood Cells % 0 % (-); Platelet Count 262 10^3/uL (130-400); Red Blood Cell Count 4.56 10^6/uL (4.70-6.10); Red Cell Dist. Width 13.1 % (11.5-14.5); White Blood Cell Count 8.7 10^3/uL (4.8-10.8)
[2023-06-13 12:07] LABS: Urine Albumin Negative (Neg - Trace); Urine Bilirubin Negative (Negative); Urine Character Clear (Clear); Urine Color Yellow; Urine Glucose Negative (Negative); Urine Ketone Negative (Negative); Urine Leukocyte Negative (Negative); Urine Nitrite Negative (Negative); Urine Occult Blood Negative (Negative); Urine Urobilinogen Negative (Neg - 1+); Urine pH 6.5 (5.0-9.0)
[2023-06-13 12:21] LABS: ALT (SGPT) 16 U/L (0-50); AST (SGOT) 21 U/L (17-59); Albumin 3.9 g/dl (3.5-5.0); Alkaline Phosphatase 74 U/L (38-126); Blood Urea Nitrogen 16 mg/dl (9-20); Calcium 8.9 mg/dl (8.4-10.2); Carbon Dioxide 25 mmol/L (22-30); Chloride 103 mmol/L (98-107); Glucose 101 mg/dl (70-99); Potassium 3.8 mmol/L (3.5-5.1); Sodium 134 mmol/L (135-145); Total Bilirubin 0.5 mg/dl (0.2-1.3); Total Protein 6.6 g/dl (6.3-8.2); eGFR > 60.00
[2023-06-13 12:38] VITALS: BP 139/67; BP 139/68; BP 94/47; PULSE 69; PULSE 70; PULSE 78
[2023-06-13 12:48] LABS: TSH Reflex To Free T4 2.71 uIU/ml (0.47-4.68)
--- NOTE | 2023-06-13 14:13 | CON.NEURO4 ---
Consultation - Neurology 4
-
CONSULTING PHYSICIAN: Mar Powers
REFERRING PHYSICIAN: ER
DICTATED BY: Mar Powers
DATE/TIME OF REQUEST: 06/13/23
DATE/TIME OF CONSULTATION: 06/13/23
Reason for Consultation: Confusion, dementia
History of Present Illness:
Patient is an 82-year-old male with a past no history of dementia, significant orthostatic hypotension, coronary disease diabetes and hypertension presented to hospital because of mental status abnormalities and overall decline over the past 10
days.
Patient's that he has been more confused and more short-term memory problem than normal recently. There has not been any obvious visual hallucinations unilateral weakness or loss of consciousness or headache. He did have a fall yesterday and
had a ER evaluation.
Patient was first noted to have significant memory problems in the months to a year before seeing Dr. Hale of local neurology around August 2022 he was diagnosed with a mild dementia at that time, had a brain MRI.
There is not been any tremor the patient has had significant gait abnormalities using assistance since approximately April 2023 and has had significant amount of falls.
Family relates that short-term memory is a problem he has not had any instances of severe sleepiness or being unable to be aroused and no obvious visual hallucinations. No tremor.
Listed on his medications is 12.5 mg BID Meclizine.
Past Medical History: Dementia, orthostatic hypotension, CAD, DMII, hypertension
Surgical History: CABG, hernia repair, appendectomy
Family History: Non-contributory
Social History: , has son in the area, lives at SNF/[facility], retired
Review of Symptoms:
Patient denies any fever, headache, chest pain, shortness of breath, GI or symptoms.
Physical Exam:
Elderly man no distress no head or neck trauma oropharynx clear eyes clear heart rate regular breathing unlabored abdomen soft nontender no lower extremity edema
Neurologic Examination:
Patient is awake and alert he does have evidence of significant dementia he is not able to obey complex commands he can identify colors and will identify a dollar bill, not able to name the months of the year and forwards order and does not count
to 20 when asked to do so. No aphasia or neglect. On cranial nerve assessment, pupils are 3 mm bilateral, round and reactive to light and accommodation. Visual joyce are full. Extraocular movements are intact. Facial sensations are intact and
bilaterally symmetrical, there is no facial asymmetry. Hearing is intact bilaterally to normal conversation volume. Tongue palate and uvula are midline. Sternocleidomastoid strengths are full bilaterally. No tremor or rigidity or parkinsonism.
Motor strengths are 5/5 bilateral upper and lower extremities on medical research [place] scale. There is no drift or involuntary movement noted. Deep tendon reflexes are 2+ bilateral upper and lower extremities and Babinski is absent bilaterally.
Intact light touch and noxious stimulation Coordination is intact by finger to nose bilaterally.
Impressions
1. Baseline dementia, Alzheimer's would seem most likely but also multiple system atrophy is also possible given significant orthostasis and constipation. He does not have overt parkinsonism or tremor.
2. His most recent decline is probably multifactorial, I do have concern that if he is taking meclizine that this can certainly be contributing. His head injury and recent hospitalization could also produce a delirium and a functional decline in a
patient with pre-existing dementia. There is no strong evidence here for stroke or seizure. Lab work and vital signs are unremarkable.
3. Significant orthostatic hypotension at baseline
4.
Recommendations:
1. Would stop meclizine entirely
2. Discussed expectations that patients with dementia may sometimes have a very slow decline but sometimes they can have a stepwise decline with significant functional mental status declines in a short period of time with no other obvious causes.
3. Continue Clopidogrel
4. Discussed it would be reasonable 1-2 weeks from now to start Donepezil but set expectations that this medication is not expected to improve cognition but rather slow decline
5. Continue existing medications Midodrine and Fludrocortisone for orthostatic hypotension
6. Discussed importance of sleep, hydration, nutrition for patients with dementia
Discussed patient care with: Patient and his family
== END 2023-06-13 15:47 | disposition home or self-care (01) ==
LOC: EMR 10:57
PROVIDERS: Physician Assistant; EMERGENCY PHYSICIAN Emergency Medicine; FAMILY PHYSICIAN Family Medicine; OTHER PHYSICIAN Student in an Organized Health Care Education/Training Program
DX: G20.A1 Parkinson's disease without dyskinesia, without mention of fluctuations (principal); F02.A0 Dementia in other diseases classified elsewhere, mild, without behavioral disturbance, psychotic disturbance, mood disturbance, and anxiety; I95.1 Orthostatic hypotension
CPT/HCPCS: 99283; 80053; 81003; 84443; 85025

== ENCOUNTER → 2023-06-19 11:26 | Outpatient (REF) | payer MEDICARE, OTHER, SELFPAY ==
[2023-06-19 12:59] LABS: Hematocrit 38.8 % (39.0-52.0); Mean Corp Hgb Conc. 33.5 g/dL (33.0-37.0); Mean Corpuscular Hgb 30.1 pg (27.0-31.0); Mean Corpuscular Volume 89.8 fL (80.0-94.0); Mean Platelet Volume 10.4 fL (7.4-10.4); Platelet Count 233 10^3/uL (130-400); Red Blood Cell Count 4.32 10^6/uL (4.70-6.10); Red Cell Dist. Width 13.1 % (11.5-14.5); White Blood Cell Count 7.3 10^3/uL (4.8-10.8)
[2023-06-19 13:38] LABS: ALT (SGPT) 14 U/L (0-50); AST (SGOT) 20 U/L (17-59); Albumin 3.5 g/dl (3.5-5.0); Alkaline Phosphatase 70 U/L (38-126); Blood Urea Nitrogen 19 mg/dl (9-20); Calcium 8.8 mg/dl (8.4-10.2); Carbon Dioxide 26 mmol/L (22-30); Chloride 102 mmol/L (98-107); Glucose 119 mg/dl (70-99); Potassium 3.9 mmol/L (3.5-5.1); Sodium 137 mmol/L (135-145); Total Bilirubin 0.4 mg/dl (0.2-1.3); Total Protein 5.9 g/dl (6.3-8.2); eGFR > 60.00
[2023-06-19 14:05] LABS: TSH 3.26 uIU/ml (0.47-4.68)
== END ==
LOC: OLABP 11:26
PROVIDERS: ATTENDING PHYSICIAN Student in an Organized Health Care Education/Training Program
DX: E11.9 Type 2 diabetes mellitus without complications (principal); E87.1 Hypo-osmolality and hyponatremia; N40.0 Benign prostatic hyperplasia without lower urinary tract symptoms; A41.9 Sepsis, unspecified organism; M62.81 Muscle weakness (generalized); I11.9 Hypertensive heart disease without heart failure
CPT/HCPCS: 36415; 80053; 84443; 85027